=== PATIENT | female | born 1955 | race Caucasian/White ===

== ENCOUNTER → 2016-10-12 | Outpatient (CLI) | payer BC ==
[~2016-10-12] MED LIST: LIDOCAINE 2% MDV 20 ML VIAL As Ordered ONE; SODIUM BICARBONATE 8.4% INJ 50MEQ 50 ML VIAL As Ordered ONE
--- NOTE | 2016-10-12 16:11 | REPKIM ---
CLINICAL HISTORY: Patient with ESRD presents with a tunneled right IJ hemodialysis catheter. Patient is on peritoneal dialysis. The referring nephrology service has requested to remove the TDC because it is no longer needed. PROCEDURE PERFORMED: Right IJ Tunneled Dialysis Catheter Removal INTERVENTIONALIST: Dr. Eddie Sotelo CONSENT: The risks, benefits and alternatives to the procedure were explained to the patient and informed written consent was obtained. MEDICATION: Local Lidocaine 2% EBL: less than 10 mL PROCEDURE/FINDINGS: The patient was brought to the interventional radiology suite and placed in the supine position with head of bed elevated. Time out procedure was performed. The area was prepped and draped in a usual sterile fashion. Local anesthesia was administered subcutaneously to the catheter exit site using 2% Lidocaine. The catheter cuff was bluntly dissected free from the surrounding soft tissues. The catheter was removed, inspected and confirmed to be removed in its entirety. Hemostasis was achieved by manual compression. A sterile dressing was applied. The patient tolerated the procedure well with no immediate complications. No imaging was used. Dr. Sotelo was present. IMPRESSION: Tunneled dialysis catheter removal as discussed above. cc: Byron Mojica MD MTDD
== END | disposition home or self-care (01) ==
LOC: M IRPRO 12:01
PROVIDERS: ATTEND Internal Medicine Nephrology
DX: Z45.2 Encounter for adjustment and management of vascular access device (principal); N18.6 End stage renal disease

== ENCOUNTER → 2016-10-17 | Outpatient (CLI) | payer BC ==
--- NOTE | 2016-10-17 14:11 | REP ---
LUMBOSACRAL SPINE SERIES: Five views of the lumbosacral spine are performed. There is no compression fracture or malalignment. There is no spondylolysis or spondylolisthesis. There is mild diffuse spurring. There is an erosion at the inferior endplate of L5. There is diffuse subchondral sclerosis at L5. There is mild disc space narrowing at L5-S1. There is also mild disc space narrowing, subchondral sclerosis and vacuum at L4-5. There is sclerosis of the facets of L5-S1. The posterior elements are intact. Diffuse vascular calcifications are present. A catheter is seen in the pelvis. IMPRESSION: Degenerative changes. No compression fracture. There is erosive change at the inferior endplate of L5 anteriorly. Cannot exclude underlying discitis. Recommend MRI with and without contrast. Signed by Jorge Saez MD 10/17/2016 04:18 P
== END ==
LOC: M SMT 12:49
PROVIDERS: ATTEND Nurse Practitioner Adult Health
DX: M51.36 Other intervertebral disc degeneration, lumbar region (principal); M51.37 Other intervertebral disc degeneration, lumbosacral region

== ENCOUNTER → 2016-10-27 | Outpatient (CLI) | payer BC ==
--- NOTE | 2016-10-27 12:45 | REP ---
MRI LUMBAR SPINE WITHOUT CONTRAST: 10/27/2016. CLINICAL HISTORY: Back pain, spondylosis. History of osteomyelitis 02/2016 - 03/2016 in [place], priors out of the state. COMPARISON: X-ray 10/17/2016. No prior MRI or CT available at the time of this emergent request. TECHNIQUE: Sagittal T1, T2 and STIR images with axial T1 and T2 sequences were provided although the request was for study without and with gadolinium. Our neuroradiology and body MR protocols do not allow administration of any gadolinium in a patient with a GFR less than 30. With the patient on peritoneal dialysis, IV radiographic contrast for CT might be considered in coordination with that procedure, if approved by her grinder mill operator. FINDINGS: Sagittal images show vertebral body heights intact. There are discogenic changes at the L3-4 and L4-5 which are mild. However, there are destructive endplate changes at L5 inferior endplate and questionably at S1. There is marrow edema adjacent to the S1 endplate and throughout the L5 vertebral body on the STIR images. The L5-S1 disc space is narrowed. The L3-4 and L4-5 disc space are slightly narrowed with loss of disc water signal. The L2-3 levels and above are intact. At T11-12, T12-L1, L1-2 and L2-3 disc levels show no bulge herniation and no spinal or foraminal stenosis. At L3-4, there is a broad-based disc bulge with central disc protrusion which combined with some ligamentum flavum and facet hypertrophy cause moderately severe central canal stenosis. The foramina were notable for loss of perineural fat with some mild compression of the left L3 root in the foramen but not the right. At L4-5, there is a mild broad-based disc bulge, ligamentum flavum and facet hypertrophy. This causes mild central canal stenosis. It abuts but does not displace the L5 nerve roots in the central canal. The foramina show loss of perineural fat bilaterally, mildly compressing the L4 roots on each side. At L5-S1, there is endplate destruction mid and anterior aspect of L5 and some marrow edema on each side of the plate and throughout the L5 vertebral body. Posterior margins of the vertebra were intact. There is a minimal disc bulge at this level without central canal stenosis and the bulge abuts the S1 roots in that canal but does not displace them. There is a mild paravertebral soft tissue prominence noted anterior at L5-S1 which may be residual paraspinal abscess. There is hypertrophic facet change and disc bulge in the foramina causing nerve root compression of the L5 roots on both sides. IMPRESSION: 1. Osteomyelitis, discitis appearance of the L5-S1 level with the acuity or chronicity/progression of findings unable to be determined without prior studies. Mild disc bulge at this level abuts the S1 nerve roots in the canal but does not cause central canal stenosis. Combined factors do cause bilateral foraminal encroachment slightly compressing the L5 roots. Anterior to the disc level is some soft tissue that may reflect a small of fluid collection or residual osteomyelitis/abscess. It does not extend posteriorly to the neural canal. CT may be helpful. Contrast might be used in coordination with her grinder mill operator and the peritoneal dialysis schedule. 2. Significant degenerative changes at the L4-5 and L3-4 level with larger disc bulges and central protrusions contributing to some central canal stenosis in conjunction with ligamentum and facet hypertrophy. This is greater at L3-4 than L4-5. Foraminal encroachment with mild compression of the L4 roots at the L4-5 level and the L3 root on the left at the L3-4 level. No other significant finding. Signed by Maksim Dunn MD 10/27/2016 04:14 P
== END ==
LOC: M RAD 09:52
PROVIDERS: ATTEND Orthopaedic Surgery
DX: M43.06 Spondylolysis, lumbar region (principal); M46.27 Osteomyelitis of vertebra, lumbosacral region; M46.47 Discitis, unspecified, lumbosacral region

== ENCOUNTER → 2016-11-07 | Outpatient (REF) | payer BC ==
[2016-11-07 15:37] LABS: MEAN CORPUSCULAR HEMOGLOBIN 30.5 pg (27.0-33.0); MEAN CORPUSCULAR HGB CONC 32.5 g/dl (32.0-36.5); MEAN CORPUSCULAR VOLUME 93.8 fl (80.0-96.0); RED CELL DISTRIBUTION WIDTH 14.8 % (11.5-14.5); WHITE BLOOD COUNT 4.3 K/mm3 (4.0-10.0)
[2016-11-07 16:05] LABS: ALBUMIN 2.8 GM/DL (3.2-5.2); ALBUMIN/GLOBULIN RATIO 0.78 (1.00-1.93); ALKALINE PHOSPHATASE 101 U/L (45-117); ALT/SGPT 25 U/L (12-78); ANION GAP 8 MEQ/L (8-16); AST/SGOT 23 U/L (15-37); BILIRUBIN,TOTAL 0.4 MG/DL (0.2-1.0); BLOOD UREA NITROGEN 52 MG/DL (7-18); CALCIUM LEVEL 8.5 MG/DL (8.8-10.2); CARBON DIOXIDE LEVEL 30 MEQ/L (21-32); CHLORIDE LEVEL 103 MEQ/L (98-107); CREATININE FOR GFR 4.41 MG/DL (0.55-1.02); GLOMERULAR FILTRATION RATE 10.9 (>45); GLUCOSE, FASTING 211 MG/DL (80-110); POTASSIUM SERUM 3.2 MEQ/L (3.5-5.1); SODIUM LEVEL 141 MEQ/L (136-145); TOTAL PROTEIN 6.4 GM/DL (6.4-8.2)
== END ==
LOC: M SFHCPLAZ 14:40
PROVIDERS: ATTEND Nurse Practitioner Adult Health
DX: M86.9 Osteomyelitis, unspecified (principal)

== ENCOUNTER → 2016-11-23 | Outpatient (CLI) | payer BC ==
[~2016-11-23] MED LIST changes: +LIDOCAINE 1% MDV 20ML VIAL As Ordered ONE; -LIDOCAINE 2% MDV 20 ML VIAL As Ordered ONE; -SODIUM BICARBONATE 8.4% INJ 50MEQ 50 ML VIAL As Ordered ONE
--- NOTE | 2016-11-23 16:34 | REP ---
CT GUIDED L5-S1 DISC BIOPSY: The procedure was performed under the direct supervision of Dr. Saez. The patient has a history of osteomyelitis discitis appearance of the L5-S1 level seen on a previous MRI dated 10/27/2016. The risks and benefits of the procedure were explained to the patient and informed consent was obtained. The L5-S1 disc space was localized using CT guidance. The skin was prepped and draped in a sterile fashion. 1% Xylocaine was used as a local anesthetic. Using CT guidance, a 19/20-gauge coaxial needle biopsy system was inserted and advanced into the disc. Three core biopsy samples and a few drops of aspirate were obtained and sent to the lab. The patient tolerated the procedure well and there were no immediate complications. After the appropriate amount of monitored convalescence the patient was discharged from the department. Reviewed by RAHUL Azevedo 11/23/2016 05:06 PEdited and Signed by Jorge Saez MD 11/24/2016 12:56 P
== END ==
LOC: M RADPRO 09:25
PROVIDERS: ATTEND Nurse Practitioner Adult Health
DX: M86.9 Osteomyelitis, unspecified (principal); E11.9 Type 2 diabetes mellitus without complications; Z79.82 Long term (current) use of aspirin; I10 Essential (primary) hypertension; E78.5 Hyperlipidemia, unspecified; I50.9 Heart failure, unspecified; Z78.0 Asymptomatic menopausal state; Z79.84 Long term (current) use of oral hypoglycemic drugs; Z79.899 Other long term (current) drug therapy

== ENCOUNTER 2016-12-10 15:03 | Inpatient (IN) | payer BC ==
[~2016-12-10] VITALS: Ht 165.1 cm; Wt 76.5 kg
[2016-12-10] MEDS ORDERED: RENV2TAB PO (15:20)
[2016-12-10] MEDS ORDERED: CALC1CAP31 PO (15:20)
[2016-12-10] MEDS ORDERED: FAMO1TAB11 PO (15:20)
[2016-12-10] MEDS ORDERED: CARV12.5 PO (15:20)
[2016-12-10] MEDS ORDERED: LISI2.5T3 PO (15:20)
[2016-12-10] MEDS ORDERED: HEPA100I14 PD (15:20)
[2016-12-10] MEDS ORDERED: ATOR1TAB21 PO (15:20)
[2016-12-10] MEDS ORDERED: GLIP5TAB8 PO (15:20)
[2016-12-10] MEDS ORDERED: VITA50003 PO (15:20)
[2016-12-10] MEDS ORDERED: RENATAB6 PO (15:20)
[2016-12-10] MEDS ORDERED: BAYER PO (15:20)
[2016-12-10 15:29] LABS: BASO % 0.4 % (0.0-1.0); EOS # 0.2 K/mm3 (0.0-0.50); LARGE UNSTAINED CELL # 0.1 K/mm3 (0.0-0.4); LARGE UNSTAINED CELL % 1.2 % (0.0-4.0); LYMPH # 1.4 K/mm3 (1.5-4.5); LYMPH % 26.9 % (24.0-44.0); MEAN CORPUSCULAR HEMOGLOBIN 32.5 pg (27.0-33.0); MEAN CORPUSCULAR HGB CONC 33.8 g/dl (32.0-36.5); MEAN CORPUSCULAR VOLUME 96.2 fl (80.0-96.0); MONO # 0.3 K/mm3 (0.0-0.8); MONO % 5.7 % (0.0-5.0); NEUTROPHILS # 3.2 K/mm3 (1.8-7.7); NEUTROPHILS % 62.7 % (36.0-66.0); PLATELET COUNT, AUTOMATED 146 k/mm3 (150-450); WHITE BLOOD COUNT 5.1 K/mm3 (4.0-10.0)
[2016-12-10 15:51] LABS: CALCIUM LEVEL 7.6 MG/DL (8.8-10.2); CREATININE FOR GFR 4.88 MG/DL (0.55-1.02); GLOMERULAR FILTRATION RATE 9.7 (>45); POTASSIUM SERUM 3.7 MEQ/L (3.5-5.1)
[2016-12-10 15:57] LABS: ALBUMIN 2.7 GM/DL (3.2-5.2); ALBUMIN/GLOBULIN RATIO 0.64 (1.00-1.93); BILIRUBIN,DIRECT 0.1 MG/DL (0.0-0.2); BILIRUBIN,TOTAL 0.4 MG/DL (0.2-1.0); FREE T4 0.87 NG/DL (0.76-1.46); MAGNESIUM LEVEL 1.7 MG/DL (1.8-2.4); TOTAL PROTEIN 6.9 GM/DL (6.4-8.2)
[2016-12-10] MEDS ORDERED: ASPIRIN 325 MG TAB PO ONE (16:15)
[2016-12-10] MEDS ORDERED: GLUCAGON FOR INJ 1 MG VIAL (J1610) SC PRN (16:45)
[2016-12-10] MEDS ORDERED: GLUCOSE 4 GM CHEW TABLET PO PRN (16:45)
[2016-12-10] MEDS ORDERED: DEXTROSE 50% 50 ML SYRINGE IV PRN (16:45)
[2016-12-10] MEDS: (RENVELA) SEVELAMER **CARBONate** 800 MG TAB PO SCH (18:00)
[2016-12-10] MEDS ORDERED: ASPI325T PO (18:31)
[2016-12-10] MEDS ORDERED: CARV6.25 PO (18:31)
[2016-12-10] MEDS ORDERED: GLIP10TA58 PO (18:31)
[2016-12-10] MEDS ORDERED: COLA100C3 PO (18:32)
[2016-12-10] MEDS: HumaLOG INSULIN (NovoLOG) PER UNIT SC SCH ×2 (18:58→21:00)
[2016-12-10] MEDS ORDERED: SODIUM CHLORIDE 0.9% 1000 ML IV ONE ×2 (19:45)
[2016-12-10 20:37] VITALS: BP 129/59
--- NOTE | 2016-12-10 20:53 | HPE ---
DATE OF ADMISSION: 12/10/2016 PRIMARY CARE PROVIDER: Shima Chopra SMOKING PIPE COATER: Dr. Mojica MASTER [place]: Dr. Ervin in [place]. CODE STATUS: FULL CODE. CHIEF COMPLAINT: Right facial numbness. HISTORY OF PRESENT ILLNESS: Ms. Sesay is a 61-year-old female with past medical history of ischemic cardiomyopathy, end-stage renal disease on peritoneal dialysis, coronary artery disease (CAD), diabetes, who presented to the emergency department (ED) today with complaint of right facial numbness, right hand numbness and left leg numbness. Her symptoms initially started yesterday morning around 10 a.m. The patient was over visiting her sister and all of a sudden, started experiencing numbness/tingling to her upper lip and along the crease of her right nose. That episode lasted for approximately one hour and it resolved on its own. However, approximately around 12:30 today, her symptoms returned. She was sitting and all of a sudden again experienced right upper lip numbness, which eventually extended to right facial numbness. Associated with feeling "out of it," and lightheadedness as she attempted to go to the bathroom. On her way back, as she was trying to lift up her LifeVest, she noticed that it was very light to touch and numb on her right hand. As the day progressed, she also noticed that her left leg was getting weak and numb. Her symptoms still persisted after she presented to the emergency room (ER). Denied any syncopal episode, chest pain, palpitations, fevers, chills, dizziness, blurry vision, double vision, headaches. Denies similar symptoms in the past. Of note, the patient recently had an echocardiogram two weeks ago with her load out worker and at that time was found to have a pericardial effusion and since then, she was advised to get further peritoneal dialysis with Dr. Saravia's office for further fluid removal. The patient reports that her dry weight is 74 kg. PAST MEDICAL HISTORY: 1. Ischemic cardiomyopathy with ejection fraction (EF) of 23% from nuclear test in 11/29/2016. Global hypokinesis seen. Mild anterior wall perfusion defect with minimal redistribution at 24 hours. The patient has a LifeVest in place. 2. Coronary artery disease (CAD) status post coronary artery bypass graft (CABG ) 2009. 3. Osteomyelitis of L5-S1 diagnosed in 01/2016. Patient recently had MRI of her lumbar spine in 10/2016. At that time it showed osteomyelitis, discitis, appearance at L5-S1 with acuity and chronicity unable to be determined. She is currently followed by orthopedics. She also had a biopsy of her lumbar spine that was negative for acid-fast bacillus and no WBC or organisms seen, performed recently in the beginning of this month. Was treated with prolonged Vancomycin course. 4. Prior cardiac arrest during peritoneal dialysis (PD) catheter placement. 5. Congestive heart failure with ejection fraction (EF) of 23%. 6. End-stage renal disease, previously on hemodialysis which later was switched to peritoneal dialysis recently in 09/2016 because it was more convenient for her. 7. Clostridium (C) difficile colitis. 8. Peripheral vascular disease. 9. Type 2 diabetes. 10. Hyperlipidemia. 11. Pneumonia. PAST HOSPITALIZATIONS: From 12/2015 to 03/2016 for multiple complications from osteomyelitis, cardiac arrest, pneumonia, and Clostridium (C) difficile colitis back in [place]. PAST SURGICAL HISTORY: 1. Coronary artery bypass graft (CABG) seven years ago. 2. Peripheral dialysis (PD) catheter placement. 3. PermaCath placement with removal. 4. Tubal ligation. 5. Cataract surgery. 6. Currently, the patient is scheduled for a catheterization with Dr. Ervin on 12/12/2016. ALLERGIES: BUMEX AND CODEINE. Reaction is hives and shortness of breath. HOME MEDICATIONS: - aspirin 325 mg by mouth at bedtime - Lipitor 20 mg by mouth daily - calcitriol 0.25 mg three times a week - Coreg 6.25 mg by mouth twice a day - Colace 100 mg by mouth at bedtime as needed - vitamin D 50,000 units weekly - famotidine 20 mg by mouth twice a day - glipizide 10 mg by mouth twice a day - heparin with dialysis - lisinopril 2.6 mg at bedtime - Ruth-Lei one tablet by mouth daily - Renvela 800 mg three times a day SOCIAL HISTORY: Patient is a never smoker. No alcohol. No drug use. She previously lived in [place]. Currently resides in [place]. Lifetime travel includes [place]. 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 Currently lives at home with her daughter and one dog. Positive tuberculosis (TB) exposure. Last chest x-ray was last year and was negative. FAMILY HISTORY: Mother with diabetes, breast cancer and bone cancer, alive. Father with prostate and colon cancer. REVIEW OF SYSTEMS: CONSTITUTIONAL: Denies fevers, chills, rigors, weight changes. HENT: Denies headaches, dizziness, difficulty with speech and swallow. Positive for lightheadedness. EYES: No blurry vision, double vision, diplopia. CARDIOVASCULAR: Denies chest pain, paroxysmal nocturnal dyspnea, pillow orthopnea, lower extremity edema. PULMONARY: Denies shortness of breath, productive cough, hemoptysis. GASTROINTESTINAL: Denies hematochezia, melena, or hematemesis, nausea, vomiting , diarrhea, constipation. GENITOURINARY: No dysuria, frequency or hematuria. MUSCULOSKELETAL: No bone, muscle, joint pain. NEUROLOGICAL: As above. ENDOCRINE: Positive for diabetes. No thyroid disease. LYMPHATICS: No lumps, bumps, or swelling anywhere in neck, axilla, or groin. HEMATOLOGY/ONCOLOGY: No abnormal bleeding or bruising. No malignancy. SKIN: No new rashes or lesions. PSYCHIATRIC: No depression or anxiety. PHYSICAL EXAMINATION: VITAL SIGNS: Blood pressure 156/74, heart rate 79, temperature 97.9, respiration rate 16, pulse oximetry 98% on room air. GENERAL: Patient is lying in bed, comfortable, in no acute distress. Alert, awake, oriented times three. Pleasant, cooperative. Appears older than stated age. Chronically ill-appearing. No acute respiratory or psychiatric distress. Sister at bedside. HEENT: Normocephalic, atraumatic. Moist oral mucosa. Dentures in place. Nasal septum midline. EYES: Extraocular movement intact. Pupils equal and reactive to light. Visual field diminished on her right side. NECK: Supple, trachea midline. No jugular venous distention (JVD). CHEST: Symmetric chest rise. No accessory muscle use. Breath sounds were clear to auscultation bilaterally. Patient is currently not wearing LifeVest as this was recently removed for her MRI. Incisional scar present. HEART: Regular rate and rhythm. Did not appreciate murmurs, rubs or gallops. ABDOMEN: Soft, nontender, nondistended. Bowel sounds present. No guarding. No rebound. Right lower quadrant with a peritoneal dialysis (PD) catheter in place. Surrounding area is clean and dry without any drainage. EXTREMITY: No pedal edema. Pedal pulses are present bilaterally. SKIN: No cyanosis or edema appreciated. NEUROLOGIC: Strength is 4/5 in bilateral lower extremities. Sensory is diminished on her left leg compared to her right leg and it is diminished on her right arm compared to her left arm, and also diminished on her face bilaterally. Negative Babinski sign. Intact [id number] and [id number]. Cranial nerves II-Xii grossly intact. No slurring of speech or facial asymmetry. LABORATORY DATA: WBC 5.1, hemoglobin 10.6, hematocrit 31.4, platelets 146. Sodium 143, potassium 3.7, chloride 105, carbon dioxide 30, BUN 54, creatinine 4.88, glucose 178, calcium 7.6, phosphorus 5, magnesium 1.7. Liver profile normal. Troponin first set was 0.05. TSH and Free T4 normal. Albumin 2.7. Corrected calcium 8.4. PT 13.3, INR 1. EKG showed normal sinus rhythm, left atrial enlargement with nonspecific ST-T wave abnormalities. No prior for comparison. CT head without contrast was without acute changes. IMPRESSION AND PLAN: Ms. Sesay is a 61-year-old female with an extensive past medical history including ischemic cardiomyopathy, coronary artery disease (CAD) status post coronary artery bypass graft (CABG), end-stage renal disease on peritoneal dialysis, who presented with paresthesias. 1. Paresthesia. Etiology unclear. Based on her extensive history, possible cause could be cerebrovascular accident (CVA). She currently has MRI pending at this time. We will follow up with results. We have also consulted Dr. Mike for assistance. Patient is currently on her high-dose aspirin for her history of ischemic cardiomyopathy. We will continue with aspirin 325, statin therapy. Check lipid profile. Check carotid MRI and also echocardiogram. 2. History of ischemic cardiomyopathy. Ejection fraction (EF) 23%. She does have a LifeVest in place. Follows closely with cardiology. Patient has an appointment with her load out worker for catheterization this coming Monday. 3. End-stage renal disease on peritoneal dialysis. Have discussed case with Dr. Romero, who has agreed to see the patient for assistance with her peritoneal dialysis (PD). 4. Hypomagnesemia. Magnesium will be repleted. 5. History of osteomyelitis. Check erythrocyte sedimentation rate, C-reactive protein (CRP). She recently had a biopsy of the spine and it was negative back in 10/2016. She also had a lumbar MRI that showed osteomyelitis though chronicity of this is unclear. She reportedly followed with orthopedic after her MRI report. Has completed vancomycin last year. 6. History of pericardial effusion. Currently is stable. Patient will have order for repeat echocardiogram as mentioned above. 7. Congestive heart failure with ejection fraction (EF) of 23%. She undergoes peritoneal dialysis. Consulted rn surgical as mentioned above. Will follow up with recommendations. 8. Type 2 diabetes. Hold home hypoglycemic agents. Start insulin sliding scale while inpatient. 9. Hypertension. Continue home medications with home parameters. 10. History of coronary artery disease (CAD) status post coronary artery bypass graft (CABG). Continue beta-opal, statin and aspirin. 11. Hyperlipidemia. Continue statin therapy. 12. Prior history of cardiac arrest. Patient has a LifeVest in place. This reportedly occurred after completion of placement of her peritoneal dialysis (PD ) catheter placement last year. 13. Deep venous thrombosis (DVT) prophylaxis. Sequential compression devices (SCDs), thromboembolitic deterrents (TEDs) and heparin. DISPOSITION: Due to the patient's condition, we expect her stay to be greater than two midnights. cc: Shima Ervin in [facility]
[2016-12-10] MEDS ORDERED: MAGNESIUM OXIDE 400 MG TAB (MAG-OX) PO SCH (21:00)
[2016-12-10] MEDS: HEPARIN SOD (PORCINE) 5000 UNITS/ML VIAL SC SCH (22:28)
[2016-12-10] MEDS: CARVedilol 6.25 MG TAB PO SCH (22:33)
[2016-12-10 23:55] VITALS: BP 156/75
[2016-12-11 01:37] LABS: RBC PERITONEAL DIALYSATE < 10 (<10mm3 cells/uL)
[2016-12-11 01:38] LABS: PERITONEAL DIALYSATE FL COLOR COLORLESS (COLORLESS); TNC PERITONEAL DIALYSATE < 20 cells/uL (0-20)
[2016-12-11 01:39] LABS: BF DIFF IF INDICATED? NO (NO)
[2016-12-11 04:45] VITALS: BP 125/65
[2016-12-11 05:39] LABS: MEAN CORPUSCULAR HEMOGLOBIN 31.6 pg (27.0-33.0); MEAN CORPUSCULAR HGB CONC 32.9 g/dl (32.0-36.5); RED CELL DISTRIBUTION WIDTH 14.3 % (11.5-14.5); WHITE BLOOD COUNT 4.7 K/mm3 (4.0-10.0)
[2016-12-11 05:48] LABS: ALBUMIN 2.5 GM/DL (3.2-5.2); CALCIUM LEVEL 8.4 MG/DL (8.8-10.2); CREATININE FOR GFR 5.15 MG/DL (0.55-1.02); GLOMERULAR FILTRATION RATE 9.1 (>45); MAGNESIUM LEVEL 1.8 MG/DL (1.8-2.4); PHOSPHORUS LEVEL 4.6 MG/DL (2.5-4.9); POTASSIUM SERUM 3.7 MEQ/L (3.5-5.1)
[2016-12-11] MEDS: HEPARIN SOD (PORCINE) 5000 UNITS/ML VIAL SC SCH ×3 (06:16→21:08)
[2016-12-11] MEDS: HumaLOG INSULIN (NovoLOG) PER UNIT SC SCH ×4 (06:55→20:11)
[2016-12-11 08:00] VITALS: BP 115/58
[2016-12-11] MEDS: CARVedilol 6.25 MG TAB PO SCH ×2 (09:00→20:52)
--- NOTE | 2016-12-11 09:22 | REP ---
CT HEAD WITHOUT CONTRAST: HISTORY: Infarction. An area of decreased attenuation is present in the left basal ganglia and internal capsule. This represents an old lacunar infarction. Areas of decreased attenuation are present in the periventricular white matter. This represents small vessel ischemic disease. There is no intraparenchymal hemorrhage, mass, or midline shift. The ventricular system and cortical sulci are dilated consistent with minimal volume loss. There is no extracerebral collection. The visualized sinuses are clear. IMPRESSION: 1. Old left basal ganglia and internal capsule lacunar infarction. 2. Small vessel ischemic disease. 3. Minimal volume loss. Signed by Jorge Damico MD 12/11/2016 09:26 A
[2016-12-11] MEDS: (RENVELA) SEVELAMER **CARBONate** 800 MG TAB PO SCH ×3 (09:56→18:51)
[2016-12-11] MEDS: ATORVASTATIN 20 MG TAB PO SCH (09:56)
[2016-12-11] MEDS: LISINOPRIL *2.5 MG* TAB PO SCH (09:56)
[2016-12-11] MEDS: FAMOTIDINE 20 MG TAB PO SCH (09:56)
--- NOTE | 2016-12-11 11:38 | REP ---
MR BRAIN WITHOUT CONTRAST: HISTORY: Infarction. COMPARISON: CT, 12/10/2016 A small focus of increased signal intensity on diffusion weighted images is present in the left thalamus. This is decreased in signal intensity on ADC images and is consistent with an acute infarction. An area of increased signal intensity on T2-weighted images is present in the left basal ganglia and internal capsule. This represents an old lacunar infarction. Areas of increased signal intensity on T2-weighted images are present in the periventricular and subcortical white matter. This represents small vessel ischemic disease. There is no intraparenchymal hemorrhage, mass, or midline shift. The sella turcica is partially empty. The ventricular system and cortical sulci are dilated, consistent with minimal volume loss. There is no extracerebral collection. The sinuses are clear. IMPRESSION: 1. Small acute left thalamic infarction. 2. Old left basal ganglia and internal capsule lacunar infarction. 3. Small vessel ischemic disease. 4. Minimal volume loss. Signed by Jorge Damico MD 12/11/2016 11:40 A
--- NOTE | 2016-12-11 11:43 | REP ---
MRA CAROTIDS WITHOUT CONTRAST: HISTORY: Carotid stenosis. Unenhanced 2D [id number]-[id number] MR angiography was performed at the level ____ of the [place] of [place] . There is moderate stenosis of 35% of the distal right common carotid artery. There is moderate stenosis of 40% of the right internal carotid artery at its origin. There is moderate stenosis of 30% of the right external carotid artery at its origin. The distal left common carotid artery and origins of the left external and internal carotid arteries are normal. The vertebral arteries are equal in size and patent. IMPRESSION: 1. Moderate stenosis of 35% of the distal right common carotid artery. 2. Moderate stenosis of 40% of the right internal carotid artery at its origin. Signed by Jorge Damico MD 12/11/2016 11:44 A
[2016-12-11 12:00] VITALS: BP 153/74
--- NOTE | 2016-12-11 12:11 | REP ---
MRA BRAIN WITHOUT CONTRAST: HISTORY: Infarction. 3D asat-et-ifkaif MR angiography was performed at the level of the [place] of [place]. There is no ___ aneurysm ___ or arteriovenous malformation. Mild atherosclerotic disease involves the cavernous internal carotid arteries. Major intracranial vessels are patent. The vertebral arteries are equal in size. IMPRESSION: 1. There is no aneurysm or arteriovenous malformation. 2. Atherosclerotic disease, as described above. Signed by Jorge Damico MD 12/11/2016 12:26 P
--- NOTE | 2016-12-11 14:37 | ECHO ---
DATE OF SERVICE: 12/11/2016 REFERRING PROVIDER: Dr. Padron PATIENT LOCATION: Room 3224. REASON FOR THE CONSULT: Cerebrovascular accident (CVA). History of coronary artery bypass graft (CABG). 2D MEASUREMENTS: IVS: 1.3 cm LV: 5.5 cm LVPW: 1.2 cm LA: 4.6 cm Aorta: 3.3 cm IVC: 2.3 cm DOPPLER MEASUREMENTS: Peak velocity across the aortic valve: 1.3 m/s Peak velocity across the LVOT: 0.6 m/s Mitral E: 1.1 Mitral A: 0.9 with a ratio of 1.29 Peak gradient across the mitral valve: 7.7 mmHg Mean gradient across the mitral valve: 4 mmHg Maximum tricuspid valve velocity: 2.9 m/s 2D COMMENTS: 1. Mildly increased left ventricular wall thickness with mildly enlarged left ventricle and a moderately depressed global left ventricular systolic function. There appears to be moderate global hypokinesis, but the inferior wall seems to be almost akinetic. The estimated global left ventricular systolic ejection fraction is 30-35%. 2. Mildly enlarged left atrium. Normal right atrium and right ventricle. 3. The atrial septum appeared to be normal without evidence of defect or shunt. 4. Normal aortic root. 5. Trace pericardial effusion noted, no evidence of cardiac tamponade. 6. Mildly calcified aortic valve with normal leaflet excursion. Mildly calcified mitral annulus with normal anterior mitral valve leaflet motion. Normal tricuspid valve and pulmonic valve. The proximal pulmonary artery branches appear to be normal. 7. The inferior vena cava was mildly enlarged, central venous pressure might be elevated. DOPPLER: It detects mild mitral regurgitation and mild tricuspid regurgitation. The calculated pulmonary artery systolic pressure varied between 40 to 50 mmHg. Abnormal relaxation pattern was noted across the septal and lateral mitral valve annulus, left ventricular end diastolic pressure might be elevated. IMPRESSION: 1. Moderately severe global left ventricular systolic dysfunction with regional wall motion abnormalities and a mildly enlarged left ventricle. There are features of left ventricular diastolic dysfunction as mentioned above. 2. Aortic valve sclerosis without stenosis or aortic regurgitation. 3. Mildly enlarged left atrium with mitral annulus calcification and mild mitral regurgitation. Probably mild calcific mitral stenosis also was present. 4. Mild tricuspid regurgitation with probably moderate pulmonary hypertension. MTDD
--- NOTE | 2016-12-11 15:03 | CR ---
DATE OF CONSULTATION: 12/11/2016 REQUESTING PHYSICIAN: Dr. Maryam Yap CONSULTING PHYSICIAN: Dr. Romero REASON FOR CONSULTATION: Management of end stage renal disease and peritoneal dialysis. CHIEF COMPLAINT: Patient presented to the emergency room last night with right sided facial numbness. HISTORY OF PRESENT ILLNESS: Marina Sesay is a 61-year-old female with past medical history of end stage renal disease currently on peritoneal dialysis well known to nephrology service. She follows up with Dr. Mojica. She has multiple other comorbidities which are mentioned below. She presented to the hospital yesterday with right sided facial numbness which started yesterday morning. It was coming and going. She also complained of lightheadedness along with that. Initial evaluation including the MRI done yesterday has shown small acute infarct. Patient is being followed by neurology. She has history of end stage renal disease and nephrology service was called for further help in the management of peritoneal dialysis. The patient's dry weight is 74 kg. The patient was seen by me today at the bedside. She was getting her echocardiogram done. Otherwise, she is asymptomatic and she reports persistent right sided facial numbness. PAST MEDICAL HISTORY: 1. End stage renal disease on peritoneal dialysis. 2. History of congestive heart failure with ischemic cardiomyopathy. 3. Osteomyelitis of the lumbosacral spine. She was recently seen by orthopedics and she was referred to infectious disease for further management of osteomyelitis. 4. Prior history of cardiac arrest during peritoneal dialysis catheter placement. 5. History of Clostridium difficile colitis. 6. Peripheral vascular disease. 7. Diabetes mellitus type 2. 8. Hyperlipidemia. 9. History of anemia secondary to end stage renal disease. PAST SURGICAL HISTORY: 1. Status post peritoneal dialysis (PD) catheter placement. 2. Status post coronary artery bypass grafting seven years ago. 3. Status post tubal ligation. ALLERGIES: - BUMEX - CODEINE HOME MEDICATIONS: - aspirin - Lipitor - calcitriol - Coreg - Colace - vitamin D - Pepcid - glipizide - lisinopril - Ruth-Lei - Renvela FAMILY HISTORY: No significant family history of end stage renal disease requiring hemodialysis. SOCIAL HISTORY: The patient denies any smoking, drug abuse or alcohol abuse. The patient recently moved to [place] from [place]. REVIEW OF SYSTEMS: CONSTITUTIONAL: Patient denies any fever, chills, rigors or weight loss. EYES: Denies any recent blurry vision, double vision or decreased vision. ENT: Patient denies any ear discharge, ear pain, dysphagia, or odynophagia. CARDIOVASCULAR: She denies any palpitations or chest pain, but she does report history of congestive heart failure and she was waiting external defibrillator in the past. RESPIRATORY: She denies any shortness of breath or cough. GASTROINTESTINAL: She denies any nausea, vomiting, constipation. GENITOURINARY: She denies any dysuria or hematuria. MUSCULOSKELETAL: She denies any muscle aches and pains. NEUROLOGICAL: As mentioned per history of present illness (HPI), she presented with right facial numbness. ENDOCRINE: Patient reports history of diabetes and secondary hyperparathyroidism. HEMATOLOGIC/ONCOLOGIC: She reports anemia secondary to end stage renal disease. PSYCHIATRIC: She denies any history of anxiety or depression. SKIN: She denies any rashes or ulcers. All other review of systems is negative. PHYSICAL EXAMINATION: VITAL SIGNS: Temperature 97.7 degrees Fahrenheit. Blood pressure 153/74. Pulse 78. Respiratory rate 18. Saturating 98% on room air. INTAKE AND OUTPUT: Peritoneal dialysis recorded so far 4400 mL. Weight on the bed scale is 78 kg. GENERAL: Patient is awake, alert and oriented times three, laying in bed in no apparent distress. HEAD AND NECK EXAM: Extraocular muscles intact. Pupils equally round and reactive to light. Mucous membranes are moist. Neck is supple. There is no jugular venous distention (JVD). CARDIOVASCULAR: S1, S2, regular rate. No murmur, rub or gallop. RESPIRATORY: Chest is clear to auscultation bilaterally. Bilateral equal air entry. No rales or rhonchi. ABDOMEN: Soft. Positive bowel sounds. Nontender. No ascites. No organomegaly. The patient has a right lower quadrant PD catheter in place. No drainage from the catheter site. EXTREMITIES: No edema of the bilateral lower extremities. Pulses are 2+. No cyanosis. CENTRAL NERVOUS SYSTEM: Power is 4/5 in the bilateral lower extremities. She is otherwise awake, alert and oriented times three and follows commands. She has numbness of the right side of the face. LAB REVIEW: CBC showed a WBC of 4.7, hemoglobin 9.7 and platelets of 149. BMP showed sodium 142, potassium 3.7, chloride 106, bicarbonate 29, BUN 55, creatinine 5.1. Calcium 8.4. Albumin 2.5. MICROBIOLOGY: Blood culture is pending. IMAGING: MRI of the brain showed small acute left thalamic infarct, old left basal ganglia and internal capsule lacunar infarcts, small vessel ischemic disease and minimal volume loss. CURRENT INPATIENT MEDICATIONS: Patient's inpatient medications include: - aspirin 325 mg - atorvastatin 20 mg - calcitriol 0.25 mcg Monday, Monday, Monday - Coreg 6.25 mg twice a day - Pepcid 20 mg daily - heparin subcutaneous - insulin sliding scale - lisinopril 2.5 mg by mouth daily - Renvela 800 mg by mouth three times a day with meals ASSESSMENT: 61-year-old female with past medical history of end stage renal disease on hemodialysis, diabetes mellitus type 2, chronic osteomyelitis of the LS spine, coronary artery disease status post coronary artery bypass graft admitted at this time because of acute CVA. PLAN: 1. Acute CVA. The patient was already seen by neurology. Continue aspirin at this time. Echocardiogram result is pending. MRI of the carotid only showed 35-40% stenosis. The rest of the management is as per neurology recommendation. 2. End stage renal disease on peritoneal dialysis. I already ordered the peritoneal dialysis. Five manual exchanges in 24 hours. Each one 1500 mL. Dialysate concentration is 2.5%. Continue to monitor daily weight and intake and output. 3. History of osteomyelitis. Patient is pending infectious disease (ID) evaluation as outpatient. I recommend to get ID on board while the patient is here. 4. Chronic kidney disease, mineral bone disease. Continue Renvela 800 mg by mouth three times a day with meals. 5. Hypertension. Continue Coreg 6.25 mg by mouth twice a day. 6. Anemia and end stage renal disease. I will give the patient a dose of Aranesp. 7. Secondary hyperparathyroidism. Continue current dose of calcitriol 0.25 mcg by mouth Monday, Monday, Monday. Thank you for involving us in the care of this patient. We shall be happy to follow the patient along with you tomorrow morning. Peritoneal dialysis orders were discussed with patient's RN.
[2016-12-11 16:00] VITALS: BP 107/54
--- NOTE | 2016-12-11 17:45 | IPNPDOC ---
Date Seen The patient was seen on 12/11/16. Progress Note Hospitalist Progress Note Subjective: Patient states that she continues to have numbness in her right face and left leg, but her hands has improved. She also endorses back pain that has been an issue for several months. Objective: Physical Exam: Vitals: Vital Sign - Last 24 Hours 12/10/16 12/10/16 12/10/16 12/10/16 18:28 18:29 18:30 18:45 Temp 97.9 Pulse 79 Resp 16 B/P (MAP) 156/74 (101) 156/74 (101) 143/73 (96) 142/75 (97) Pulse Ox 98 O2 Delivery Room Air 12/10/16 12/10/16 12/10/16 12/10/16 18:48 19:00 19:15 19:18 Pulse 81 79 B/P (MAP) 150/71 (97) 143/72 (95) Pulse Ox 96 97 12/10/16 12/10/16 12/10/16 12/10/16 19:45 19:48 20:00 20:15 Pulse 78 B/P (MAP) 135/59 (84) 135/63 (87) 131/62 (85) Pulse Ox 98 12/10/16 12/10/16 12/10/16 12/10/16 20:30 20:37 22:33 23:55 Temp 97.5 98.3 99.2 Pulse 76 76 99 83 Resp 18 20 20 B/P (MAP) 121/59 (79) 129/59 (82) 141/69 156/75 (102) Pulse Ox 98 100 97 O2 Delivery Room Air Room Air 12/11/16 12/11/16 12/11/16 12/11/16 04:45 08:00 09:00 09:56 Temp 99.3 97.2 Pulse 73 70 70 Resp 20 18 B/P (MAP) 125/65 (85) 115/58 (77) 115/58 115/58 Pulse Ox 96 96 O2 Delivery Room Air Room Air 12/11/16 12/11/16 12:00 16:00 Temp 97.7 98.7 Pulse 78 80 Resp 18 18 B/P (MAP) 153/74 (100) 107/54 (71) Pulse Ox 98 95 O2 Delivery Room Air Room Air General: Awake, alert, no acute distress HEENT: Normocephalic, atraumatic, extraocular movements intact CV: Regular rate and rhythm; wearing a LifeVest Lungs: Clear to auscultation bilaterally Abd: Soft, nontender, nondistended Extremities: No edema Neuro: No strength deficits other than prior bilateral foot drop, no arm drift, no facial droop, alert and oriented 3 Psych: Normal mood and affect Labs and Imaging: Laboratory Tests 12/11/16 04:47 Red Blood Count 3.07 L, Mean Corpuscular Volume 96.0, Mean Corpuscular Hemoglobin 31.6, Mean Corpuscular Hemoglobin Concent 32.9, Red Cell Distribution Width 14.3, Anion Gap 7 L Assessment and Plan: 61-year-old female with ischemic cardiomyopathy, coronary artery disease status post CABG, osteomyelitis of the lumbar spine in 2016, end-stage renal disease on peritoneal dialysis, prior C. difficile infection, PVD, diabetes mellitus type 2, hyperlipidemia who presented with right facial numbness, right hand numbness, and left leg numbness. She has been found to have an acute infarct. 1. CVA: MRI of the brain shows small acute left thalamic infarct, as well as old left basal ganglia and internal capsule lacunar infarcts. Neurology has been consult and for the patient. MRA of the brain is unremarkable, and carotid ultrasound shows less than 50% stenosis bilaterally. Echocardiogram shows an ejection fraction of between 30-35%, as well as some diastolic dysfunction. The patient's LDL was 75, and she'll be continued on an aspirin and Plavix. She will be evaluated by speech therapy, PT, and OT 2. Ischemic cardiomyopathy: Patient currently has a LifeVest in place. She reports to me that she follows closely with cardiology, and there is plans for both the cardiac catheterization, as well as eventual ICD placement. Continue NGOZI inhibitor and beta opal. 3. End-stage renal disease on peritoneal dialysis: We appreciate the assistance of nephrology in managing this. Continue Rocaltrol and Renvela 4. History of osteomyelitis in the lumbar spine: Recent biopsy of the spine was negative, MRI of the lumbar spine showed osteomyelitis with unclear chronicity. The patient has had increased back pain in the last several months. She reports to me that she has an appointment scheduled with infectious disease in [place] , but it is not for another week or two. 5. CAD status post CABG: Continue home NGOZI inhibitor, beta opal, statin, aspirin. 6. Diabetes mellitus type 2: Sliding scale insulin while in-house. Holding home glipizide DVT prophylaxis: Heparin Dispo: possibly home tomorrow, pending OT assessment and formal neurology consult VS, I&O, 24H, Fishbone Vital Signs/I&O Vital Signs Date Time Temp Pulse Resp B/P (MAP) Pulse Ox O2 Delivery O2 Flow Rate FiO2 12/11/16 16:00 98.7 80 18 107/54 (71) 95 Room Air I&O- Last 24 Hours up to 6 AM 12/11/16 06:00 Intake Total 3100 ml Output Total 2400 ml Balance 700 ml Laboratory Data 24H LABS Laboratory Tests 2 12/10/16 18:19: Lactic Acid Level 2.2*H 12/10/16 18:42: Bedside Glucose (Misc Panel) 165H 12/10/16 20:14: Bedside Glucose (Misc Panel) 187H 12/10/16 20:32: Total Creatine Kinase 262H, Creatine Kinase MB 16.5H, Creatine Kinase MB Relative Index 6.29H, Troponin I 0.05 12/11/16 00:48: Body Fluid Source PERITONEAL DIALYSATE, Peritoneal Fluid Color COLORLESS, Peritoneal Fluid Appearance CLEAR, Peritoneal Fluid RBC (Auto) < 10, Dialysate Total Nucleated Cells < 20 12/11/16 01:03: Total Creatine Kinase 269H, Creatine Kinase MB 15.3H, Creatine Kinase MB Relative Index 5.68H, Troponin I 0.05 12/11/16 04:47: Blood Urea Nitrogen 55H, Creatinine 5.15H, Sodium Level 142, Potassium Level 3.7 , Chloride Level 106, Carbon Dioxide Level 29, Anion Gap 7L, Glomerular Filtration Rate 9.1L, Calcium Level 8.4L, Phosphorus Level 4.6, Magnesium Level 1.8, Albumin 2.5L, Triglycerides Level 94, Total Cholesterol 144, LDL Cholesterol 75.2, Non-HDL Cholesterol (LDL + VLDL) 94, Total HDL Cholesterol 50 , Cholesterol/HDL Ratio 2.880 12/11/16 08:35: Total Creatine Kinase 232H, Creatine Kinase MB 13.0H, Creatine Kinase MB Relative Index 5.60H, Troponin I 0.04 12/11/16 13:18: Bedside Glucose (Misc Panel) 219H 12/11/16 17:31: Bedside Glucose (Misc Panel) 120H CBC/BMP Laboratory Tests 12/11/16 04:47 Red Blood Count 3.07 L, Mean Corpuscular Volume 96.0, Mean Corpuscular Hemoglobin 31.6, Mean Corpuscular Hemoglobin Concent 32.9, Red Cell Distribution Width 14.3, Anion Gap 7 L Microbiology Microbiology 12/10/16 Blood Culture, Received Pending 12/10/16 Blood Culture, Received Pending MAGGY PELAEZ Dec 11, 2016 17:45
[2016-12-11 20:43] VITALS: BP 151/71
[2016-12-11] MEDS ORDERED: ASPIRIN 325 MG TAB PO SCH (21:00)
[2016-12-11 23:42] VITALS: BP 143/72
--- NOTE | 2016-12-11 23:47 | CR ---
DATE OF CONSULTATION: 12/11/2016 REFERRING PHYSICIAN: Dr. Laura Angeles REASON FOR CONSULTATION: Right-sided facial numbness. HISTORY OF PRESENT ILLNESS: Marina Sesay is a 61-year-old woman with history of ischemic cardiomyopathy, end-stage renal disease on peritoneal dialysis, coronary artery disease status post cardiac bypass of four blood vessels, diabetes, who was at her baseline state of health until day before yesterday when she developed right-sided facial numbness involving the right upper lip and around her right side of nose. She woke up in the morning of day of admission and her facial numbness had worsened and involved right side of her face sparing her forehead. She also felt numbness of her left leg. She denies any weakness of her arms and legs more than usual. She denies any dysphagia, dysarthria, diplopia or urinary incontinence. She denies any falls or loss of consciousness. She has history of chronic low back pain. She had osteomyelitis and acute discitis in December 2015. She was in and out of hospital until March 2016. She needed extensive course of antibiotics. She was followed by orthopedics. She developed foot drop at that time. Since then she has severe low-back pain which radiates down both her legs. She uses a walker at her baseline. She did not feel any difference in her gait since her symptoms onset a couple of days ago. She denies any headaches or neck pain. PAST MEDICAL HISTORY: Ischemic cardiomyopathy with ejection fraction 23% and the patient has a LifeVest in place, coronary artery disease status post four-vessel cardiac bypass in 2009, lumbosacral osteomyelitis and discitis, peritoneal dialysis, congestive heart failure, end-stage renal disease, peripheral arterial disease, type 2 diabetes, dyslipidemia, and pneumonia. ALLERGIES: BUMEX, CODEINE. HOME MEDICATIONS: - aspirin 325 mg by mouth daily - Lipitor 20 mg by mouth daily - Coreg 6.25 mg by mouth twice a day - Pepcid 20 mg by mouth twice a day - glipizide 10 mg by mouth twice a day - heparin with peritoneal dialysis - lisinopril 2.5 mg by mouth daily - Renvela 800 mg by mouth three times a day SOCIAL HISTORY: She has never smoked. She denies alcohol or illicit drugs. She used to live in [place] in the past. She currently lives in [place]. FAMILY HISTORY: Mother has diabetes and had breast and lung cancer. Father had prostate and colon cancer. REVIEW OF SYSTEMS: All systems were reviewed and were found to be noncontributory except as mentioned in history of present illness. PHYSICAL EXAMINATION: Temperature 97.2, pulse 70, respiratory rate 18, blood pressure 115/58. Heart: Regular rate and rhythm. Lungs: Clear to auscultation. No pedal edema. She has decreased peripheral pulses. No gross musculoskeletal abnormalities. Ears, nose, and throat examination is within normal limits. Abdomen is soft, nontender, nondistended. The patient is awake, alert, oriented to place, person and time. Normal speech comprehension and repetition. Extraocular muscles are intact. No facial weakness. Tongue and uvula are midline. 5/5 strength in upper extremities and 4+/5 strength in bilateral proximal lower extremities and she has bilateral foot drop. Deep tendon reflexes 1+ in arms and absent in legs. Her gait is unsteady. She has decreased cold pinprick vibration sensation in her feet. DIAGNOSTIC STUDIES: Her MRI scan of brain was reviewed and showed a small left thalamic acute ischemic lacunar stroke. Her MRI scan of lumbosacral spine from 2017 was reviewed and showed multilevel lumbosacral disc disease with mild spinal stenosis and chronic changes related to her L5-S1 osteomyelitis and discitis. ASSESSMENT: 1. Small acute left thalamic ischemic stroke. 2. Multifactorial gait difficulty. 3. Diabetic peripheral neuropathy. 4. History of lumbosacral osteomyelitis and discitis causing severe low back pain with lumbosacral radiculopathy. PLAN: 1. Reports of her MRA brain and neck are pending but did show right more than left internal carotid artery atherosclerosis. 2. Start Plavix 75 mg by mouth daily and reduce aspirin to 81 mg by mouth daily. 3. Physical and occupational therapy. 4. Continue Lipitor 20 mg by mouth daily. 5. Follow with our office in 1-2 weeks after hospital discharge. She will closely followup with her ergonomic specialist and route clerk due to chronic kidney disease and coronary artery disease.
[2016-12-12 04:48] VITALS: BP 129/69
[2016-12-12 05:09] LABS: MEAN CORPUSCULAR HEMOGLOBIN 32.9 pg (27.0-33.0); MEAN CORPUSCULAR HGB CONC 34.7 g/dl (32.0-36.5); MEAN CORPUSCULAR VOLUME 94.8 fl (80.0-96.0); WHITE BLOOD COUNT 4.6 K/mm3 (4.0-10.0)
[2016-12-12 05:24] LABS: ALBUMIN 2.4 GM/DL (3.2-5.2); CALCIUM LEVEL 8.2 MG/DL (8.8-10.2); CREATININE FOR GFR 5.18 MG/DL (0.55-1.02); MAGNESIUM LEVEL 1.8 MG/DL (1.8-2.4); PHOSPHORUS LEVEL 4.5 MG/DL (2.5-4.9); POTASSIUM SERUM 3.5 MEQ/L (3.5-5.1)
--- NOTE | 2016-12-12 05:50 | ECGEPIP ---
Stationary ECG Study [facility] - ED Test Date: 2016-12-10 Pat Name: KANE MAGANA Department: Room: - Gender: F Career Development Manager: : [id number] Requested By: JAMIN Sweet Order Number: [id number] Reading MD: Wade Fabian Measurements Intervals [place] Rate: 75 P: 68 VT: 177 QRS: 4 QRSD: 110 T: 159 QT: 413 QTc: 463 Interpretive Statements SINUS RHYTHM POSSIBLE LEFT ATRIAL ENLARGEMENT ST DEVIATION AND MODERATE T-WAVE ABNORMALITY, CONSIDER LATERAL ISCHEMIA NO PRIORS Electronically Signed On 12-12-2016 5:50:03 EDT by Wade Fabian
[2016-12-12] MEDS: HEPARIN SOD (PORCINE) 5000 UNITS/ML VIAL SC SCH (06:14)
[2016-12-12 07:15] VITALS: BP 141/71
[2016-12-12] MEDS: HumaLOG INSULIN (NovoLOG) PER UNIT SC SCH ×2 (07:30→11:30)
[2016-12-12] MEDS: FAMOTIDINE 20 MG TAB PO SCH (08:27)
[2016-12-12] MEDS: LISINOPRIL *2.5 MG* TAB PO SCH (08:27)
[2016-12-12] MEDS: ATORVASTATIN 20 MG TAB PO SCH (08:27)
[2016-12-12 08:29] VITALS: BP 129/69
[2016-12-12] MEDS: CARVedilol 6.25 MG TAB PO SCH (08:29)
[2016-12-12] MEDS ORDERED: ASPI81TAEC PO (08:56)
[2016-12-12] MEDS ORDERED: CLOP75TA2 PO (08:56)
[2016-12-12] MEDS ORDERED: ASPIRIN 81 MG ENTERIC TAB PO SCH (09:00)
[2016-12-12] MEDS ORDERED: CALCITRIOL 0.25 MCG CAP (S0169) PO SCH (09:00)
[2016-12-12] MEDS ORDERED: CLOPIDOGREL 75 MG TAB PO SCH (09:00)
[2016-12-12] MEDS ORDERED: DARBEPOETIN 100 MCG/0.5 ML *NON-DIALYSIS* SYRINGE (J0881) SC SCH (09:00)
[2016-12-12] MEDS ORDERED: LIDO5DIS36 TD (09:01)
[2016-12-12] MEDS: (RENVELA) SEVELAMER **CARBONate** 800 MG TAB PO SCH (09:13)
--- NOTE | 2016-12-12 13:44 | IPN ---
DATE OF SERVICE: 12/12/2016 SUBJECTIVE: The patient was seen and examined at the bedside today in the morning. She is asymptomatic. She is tolerating the peritoneal dialysis well. She is otherwise hemodynamically stable. She denies any more neurological symptoms. REVIEW OF SYSTEMS: The patient denies any fevers, chills, rigors, headache, nausea, vomiting, chest pain, shortness of breath, pain abdomen, constipation, or diarrhea. The rest of review of system is negative. OBJECTIVE: VITAL SIGNS: Temperature is 97.1 degrees Fahrenheit. Blood pressure is 129/69. Pulse is 72. Respiratory rate of 18. Saturating 98% on room air. INTAKE AND OUTPUT: Urine output is not recorded well. Peritoneal dialysis was 8 liters yesterday, 3200 mL so far today. Weight in the bed scale is 76.5 kg today. PHYSICAL EXAMINATION: GENERAL: The patient is awake, alert, oriented times three, sitting in the bed, no apparent distress. HEAD AND NECK EXAMINATION: Extraocular muscles intact. Pupils equally round and reactive to light. Mucous membranes are moist. Neck is supple. There is no jugular venous distention (JVD). CARDIOVASCULAR: S1, S2, regular rate. No murmur, rub, and gallop. RESPIRATORY: Chest is clear to auscultation bilaterally. Bilateral equal air entry. No rales or rhonchi. ABDOMEN: Soft. Positive bowel sounds. Nontender. No ascites. No organomegaly. The patient has a right lower quadrant peritoneal dialysis (PD) catheter. EXTREMITIES: No evidence of clubbing or cyanosis. Pulses are 2+. CENTRAL NERVOUS SYSTEM (PROVIDER RELATIONS REP): No focal neurologic deficit. Power is 4/5 in the bilateral upper and lower extremities. LABORATORY REVIEW: CBC showed a WBC of 4.6, hemoglobin 9.6, platelets are 124. BMP showed sodium 141, potassium 3.5, chloride 105, bicarbonate 28, BUN 56, creatinine 5.1, GFR is 9, calcium 8.2, albumin 2.4. CURRENT MEDICATIONS: The patient's medications were all reviewed by me. Aspirin has been changed to 81 mg daily. The patient has been started on Plavix 75 mg by mouth daily. She also got a dose of Aranesp 100 mcg subcutaneous today. There is no other change in the medications. ASSESSMENT: A 61-year-old female with past medical history of end-stage renal disease on hemodialysis, diabetes mellitus type 2, chronic osteomyelitis of the LS spine, admitted this time because of acute cerebrovascular accident (CVA). PLAN: 1. Acute cerebrovascular accident. Appreciate neurology recommendations. The patient has been started on Plavix in addition to aspirin. Physical therapy evaluation is pending. 2. End-stage renal disease on peritoneal dialysis. Continue the peritoneal dialysis, five exchanges in 24 hours at 2.5% concentration of Dialysate. Then the patient goes home, she will go back to the cycler on her home regimen. 3. Anemia in end-stage renal disease. The patient got a dose of Aranesp 100 mcg subcutaneous today. The rest of the management of anemia would be as outpatient. 4. Chronic osteomyelitis of spine. The patient is going to followup with infectious disease after discharge from the hospital. She already has the appointment with infectious disease (ID) at [place]. 5. Hypertension. Continue current dose of Lisinopril 2.5 mg by mouth daily and Coreg 6.25 mg by mouth twice a day. 6. Protein-calorie malnutrition. The patient's albumin is 2.4. She was encouraged to take more proteins, egg whites and meat.
--- NOTE | 2016-12-12 14:19 | DS.PDOC ---
Discharge Summary General Date of Admission Dec 10, 2016 at 17:10 Date of Discharge 12/12/2016 Discharge Summary DISCHARGE SUMMARY DATE OF ADMISSION: 12/10/2016 DATE OF DISCHARGE: 12/12/2016 PRIMARY CARE PHYSICIAN: The patient states that she previously saw Shima Chopra, but had already planned to change to Dr. Yvette Siddiqi, and her first appointment is already scheduled for later this month. DISCHARGE DIAGNOS(E)S: Acute CVA HPI & HOSPITAL COURSE: 61-year-old female with ischemic cardiomyopathy, coronary artery disease status post CABG, chronic osteomyelitis of the lumbar spine in 2016, end-stage renal disease on peritoneal dialysis, prior C. difficile infection, PVD, diabetes mellitus type 2, hyperlipidemia who presented with right facial numbness, right hand numbness, and left leg numbness. She has been found to have an acute infarct. 1. CVA: MRI of the brain shows small acute left thalamic infarct, as well as old left basal ganglia and internal capsule lacunar infarcts. Neurology has been consulted and recommends changing from full dose ASA to ASA 81mg and plavix. MRA of the brain is unremarkable, and carotid MRA shows less than 50% stenosis bilaterally (clean left carotid, 35% stenosis on R distal CCA and 40% at R ICA). Echocardiogram shows an ejection fraction of between 30-35%, as well as some diastolic dysfunction. The patient's LDL was 75, and she'll be continued on a statin. PT, OT, and MACHINE FORMER all cleared her to go home. 2. Ischemic cardiomyopathy: Patient currently has a LifeVest in place. She reports to me that she follows closely with cardiology, and there are plans for both the cardiac catheterization, as well as eventual ICD placement. Continue NGOZI inhibitor and beta opal. 3. End-stage renal disease on peritoneal dialysis: We appreciate the assistance of nephrology in managing this. Continue Rocaltrol and Renvela 4. History of osteomyelitis in the lumbar spine 2016, now with chronic osteo: Recent biopsy of the spine was negative, MRI of the lumbar spine showed osteomyelitis with unclear chronicity. The patient has had increased back pain in the last several months. She reports to me that she has an appointment scheduled with infectious disease in [place], but it is not for another week or two. She was encouraged to keep this appt. She reports pain in her back and limited lidocaine patches at home, so I will discharge her with an RX for several lidocaine patches. 5. CAD status post CABG: Continue home NGOZI inhibitor, beta opal, statin, aspirin. 6. Diabetes mellitus type 2: Sliding scale insulin while in-house. Holding home glipizide but resume at discharge DVT prophylaxis: Heparin PHYSICAL EXAMINATION ON DISCHARGE: VITAL SIGNS: Vital Signs Date Time Temp Pulse Resp B/P (MAP) Pulse Ox O2 Delivery O2 Flow Rate FiO2 12/12/16 08:29 129/69 12/12/16 07:15 97.1 72 18 98 Room Air General: Awake, alert, no acute distress HEENT: Normocephalic, atraumatic, extraocular movements intact CV: Regular rate and rhythm; wearing a LifeVest Lungs: Clear to auscultation bilaterally Abd: Soft, nontender, nondistended Extremities: No edema Neuro: No strength deficits other than prior bilateral foot drop, no arm drift, no facial droop, alert and oriented 3 Psych: Normal mood and affect DISPOSITION: Home DISCHARGE INSTRUCTIONS: Follow-up with new PCP Dr. Yvette Siddiqi at first available. Follow-up with Dr. Mike in 1-2 weeks. Keep all cardiology follow-up appointments. Keep appointment with infectious disease in [place]. If symptoms return, or if you experience worsening of your symptoms, please call your doctor or return to the emergency department. ITEMS THAT NEED OUTPATIENT FOLLOWUP: Continued follow-up with cardiology for cardiomyopathy, and continued follow-up with infectious disease for chronic osteomyelitis Patient was seen and examined by me on the day of discharge, and I spent a total time of greater than 30 minutes on this discharge. Vital Signs/I&Os Vital Signs Date Time Temp Pulse Resp B/P (MAP) Pulse Ox O2 Delivery O2 Flow Rate FiO2 12/12/16 08:29 129/69 12/12/16 07:15 97.1 72 18 98 Room Air I&O- Last 24 Hours up to 6 AM 12/12/16 06:00 Intake Total 7140 ml Output Total 7200 ml Balance -60 ml Laboratory Data Labs 24H Laboratory Tests 2 12/11/16 17:31: Bedside Glucose (Misc Panel) 120H 12/11/16 19:54: Bedside Glucose (Misc Panel) 131H 12/12/16 04:45: Blood Urea Nitrogen 56H, Creatinine 5.18H, Sodium Level 141, Potassium Level 3.5 , Chloride Level 105, Carbon Dioxide Level 28, Anion Gap 8, Glomerular Filtration Rate 9.0L, Calcium Level 8.2L, Phosphorus Level 4.5, Magnesium Level 1.8, Albumin 2.4L 12/12/16 11:28: Bedside Glucose (Misc Panel) 127H CBC/BMP Laboratory Tests 12/12/16 04:45 Red Blood Count 2.93 L, Mean Corpuscular Volume 94.8, Mean Corpuscular Hemoglobin 32.9, Mean Corpuscular Hemoglobin Concent 34.7, Red Cell Distribution Width 14.0, Anion Gap 8 FSBS Laboratory Tests Test 12/11/16 17:31 12/11/16 19:54 12/12/16 11:28 Range/Units Bedside Glucose (Misc Panel) 120 131 127 80-115 MG/DL Microbiology Microbiology 12/10/16 Blood Culture - Preliminary, Resulted No growth after 24 hours . All specim... 12/10/16 Blood Culture - Preliminary, Resulted No growth after 24 hours . All specim... Discharge Medications Scheduled (Ruth-Lei Rx 1 mg) 1 Tab Tab, 1 TAB PO DAILY, (Reported) Aspirin (Aspirin EC) 81 Mg Tabec, 81 MG PO DAILY Atorvastatin Calcium (Atorvastatin Calcium) 20 Mg Tab, 20 MG PO DAILY, (Reported ) Calcitriol (Calcitriol) 0.25 Mcg Cap, 0.25 MCG PO 3XW, (Reported) MON,MON,MON Carvedilol (Carvedilol) 6.25 Mg Tab, 6.25 MG PO BID, (Reported) Clopidogrel Bisulfate (Clopidogrel) 75 Mg Tab, 75 MG PO DAILY Ergocalciferol (Vitamin D) 50,000 Unit Cap, 50,000 UNITS PO 1XWK, (Reported) WEDNESDAYS Famotidine (Famotidine) 20 Mg Tab, 20 MG PO BID, (Reported) Glipizide (Glipizide Xl) 10 Mg Tab, 10 MG PO BID, (Reported) Heparin Sodium Flush (Porcine) (Heparin Lock Flush For Fl) Unknown Strength Inj , Unknown Dose PD 1XWK, (Reported) WEDNESDAYS Lisinopril (Lisinopril) 2.5 Mg Tab, 2.5 MG PO QHS, (Reported) Sevelamer Carbonate (Renvela) 800 Mg Tab, 800 MG PO TID, (Reported) Scheduled PRN Docusate Sodium (Colace) 100 Mg Cap, 100 MG PO QHS PRN for CONSTIPATION, ( Reported) Lidocaine (Lidoderm) 5 % Dis, 1 PATCH TD DAILY PRN for BACK PAIN Apply patch for up to 12 hrs to painful area on back, then remove. Allergies Coded Allergies: Bumetanide (Verified Allergy, Unknown, hives, 12/10/16) Codeine (Verified Allergy, Unknown, hives, 12/10/16) MAGGY PELAEZ December 12, 2016 14:19
== END 2016-12-12 12:38 | disposition home or self-care (01) | DRG 45 ==
LOC: EDBD 15:03 → M ED 15:42 → M ED INP 17:10 → M PCU 20:37
PROVIDERS: ADMIT Internal Medicine; ATTEND Hospitalist
DX: I63.9 Cerebral infarction, unspecified (principal); E11.40 Type 2 diabetes mellitus with diabetic neuropathy, unspecified; N18.6 End stage renal disease; E46 Unspecified protein-calorie malnutrition; M46.27 Osteomyelitis of vertebra, lumbosacral region; N25.81 Secondary hyperparathyroidism of renal origin; Z86.74 Personal history of sudden cardiac arrest; Z98.61 Coronary angioplasty status; I25.10 Atherosclerotic heart disease of native coronary artery without angina pectoris; D63.1 Anemia in chronic kidney disease; M54.17 Radiculopathy, lumbosacral region; I25.5 Ischemic cardiomyopathy; I73.9 Peripheral vascular disease, unspecified; M21.371 Foot drop, right foot; I69.398 Other sequelae of cerebral infarction; M21.372 Foot drop, left foot; Z79.84 Long term (current) use of oral hypoglycemic drugs; Z79.82 Long term (current) use of aspirin; Z88.5 Allergy status to narcotic agent; Z88.8 Allergy status to other drugs, medicaments and biological substances; Z98.51 Tubal ligation status; Z99.2 Dependence on renal dialysis

== ENCOUNTER → 2016-12-22 | Outpatient (CLI) | payer BC ==
[~2016-12-22] MED LIST changes: +ASPI325T PO; +ASPI81TAEC PO; +ATOR1TAB21 PO; +BAYER PO; +CALC1CAP31 PO; +CARV12.5 PO; +CARV6.25 PO; +CLOP75TA2 PO; +COLA100C3 PO; +FAMO1TAB11 PO; +GLIP10TA58 PO; +GLIP5TAB8 PO; +HEPA100I14 PD; +LIDO5DIS36 TD; -LIDOCAINE 1% MDV 20ML VIAL As Ordered ONE; +LISI2.5T3 PO; +RENATAB6 PO; +RENV2TAB PO; +VITA50003 PO
[2016-12-22 19:03] LABS: BASO % 0.7 % (0.0-1.0); EOS # 0.2 K/mm3 (0.0-0.50); EOS % 3.7 % (0.0-3.0); LARGE UNSTAINED CELL # 0.1 K/mm3 (0.0-0.4); LARGE UNSTAINED CELL % 1.8 % (0.0-4.0); LYMPH # 1.7 K/mm3 (1.5-4.5); LYMPH % 31.8 % (24.0-44.0); MEAN CORPUSCULAR HEMOGLOBIN 32.5 pg (27.0-33.0); MEAN CORPUSCULAR HGB CONC 32.7 g/dl (32.0-36.5); MEAN CORPUSCULAR VOLUME 99.6 fl (80.0-96.0); MONO # 0.3 K/mm3 (0.0-0.8); MONO % 5.9 % (0.0-5.0); NEUTROPHILS # 2.8 K/mm3 (1.8-7.7); NEUTROPHILS % 56.1 % (36.0-66.0); PLATELET COUNT, AUTOMATED 170 k/mm3 (150-450); RED CELL DISTRIBUTION WIDTH 15.3 % (11.5-14.5)
[2016-12-22 19:35] LABS: ALBUMIN 2.9 GM/DL (3.2-5.2); ALBUMIN/GLOBULIN RATIO 0.78 (1.00-1.93); ALKALINE PHOSPHATASE 116 U/L (45-117); ALT/SGPT 27 U/L (12-78); ANION GAP 9 MEQ/L (8-16); AST/SGOT 24 U/L (15-37); BILIRUBIN,TOTAL 0.5 MG/DL (0.2-1.0); BLOOD UREA NITROGEN 59 MG/DL (7-18); CALCIUM LEVEL 8.5 MG/DL (8.8-10.2); CARBON DIOXIDE LEVEL 30 MEQ/L (21-32); CHLORIDE LEVEL 101 MEQ/L (98-107); CREATININE FOR GFR 6.03 MG/DL (0.55-1.02); GLOMERULAR FILTRATION RATE 7.6 (>45); GLUCOSE, FASTING 125 MG/DL (80-110); SODIUM LEVEL 140 MEQ/L (136-145); TOTAL PROTEIN 6.6 GM/DL (6.4-8.2)
[2016-12-22 21:40] LABS: ERYTHROCYTE SEDIMENTATION RATE 60 mm/hr (0-30)
== END ==
LOC: M SMT 11:00
DX: M46.40 Discitis, unspecified, site unspecified (principal); L02.91 Cutaneous abscess, unspecified; M86.9 Osteomyelitis, unspecified

== ENCOUNTER → 2016-12-22 | Outpatient (CLI) | payer BC | LOC: M SMT 10:51 | PROVIDERS: ATTEND Physician Assistant | DX: Z00.01 Encounter for general adult medical examination with abnormal findings (principal) ==

== ENCOUNTER → 2016-12-28 | Outpatient (CLI) | payer BC ==
--- NOTE | 2016-12-29 09:04 | REP ---
MRI LUMBAR SPINE WITHOUT CONTRAST: 12/28/2016. CLINICAL HISTORY: Osteomyelitis/discitis, evaluate for abscess. The patient had an exam ordered without and with gadolinium. Since there is GFR less than 30 (7.6), this is an absolute contraindication for gadolinium and only noncontrast MRI performed. The possibility of a CT with IV contrast may be considered in this patient on peritoneal dialysis with the approval of the border inspector. There was a CT-guided needle aspiration/biopsy at L5-S1 on 11/23/2016. The results in electronic medical record show no growth. Some results pending. COMPARISON: 10/27/2016 MRI. TECHNIQUE: Sagittal T1, T2 and STIR images with axial T1-T2 sequences. FINDINGS: The sagittal images show normal lordosis maintained. Vertebral body heights of the lower thoracic levels through L3 are intact. There are discogenic endplate changes at L4-5 without loss of vertebral body height at L4 or L5. Loss of disc water signal at L3-4 and L4-5 with loss of height at L4-5 and L5-S1 discs. There is some hyperintense disc material anteriorly at L5-S1. There is loss of the inferior L5 endplate as on the previous study along with adjacent discogenic change and edema in both vertebral bodies. All of this is unchanged from the previous study. The conus terminates at upper aspect L2. The L2-3 level and upward visible show no disc bulge or herniation and no spinal or foraminal stenosis, unchanged. At L3-4, again noted is a broad-based disc bulge with central disc protrusion. There is ligamentum flavum and facet hypertrophy. This causes moderately severe central canal stenosis, unchanged. Foramina show loss of perineural fat with some compression of the left L3 nerve root while the right L3 nerve root is maintained. At L4-L5, there is broad-based disc bulge, ligamentum flavum and facet hypertrophy causing mild central canal stenosis, this also unchanged. Disc bulge extends into the foramina. There is loss of perineural fat bilaterally with mild compression of the L4 nerve roots on each side due to these combined factors. At L5-S1, there is again noted to be endplate destruction mid and anterior aspect of L5 with marrow edema on each side of the disc within the L5 and S1 vertebral bodies. Posterior margin shows the end plate intact. Mild paraspinal soft tissue anteriorly and toward the left at this disc level is unchanged. Hypertrophic facets are again noted. There is foraminal encroachment and nerve root compression bilaterally of the L5 roots. IMPRESSION: 1. Stable examination with the appearance of osteomyelitis/discitis complex at L5-S1 anteriorly with loss of the endplate margins at the L5 level inferiorly and anteriorly. There is a small amount of paraspinal soft tissue density which could be some residual fluid. Stable examination. 2. Disc bulge with central protrusion at L5-S1 and mild foraminal encroachment with nerve root compression bilaterally at this level, stable. 3. The L4-5 level shows disc bulge and hypertrophy of the ligamentum and facets causing mild central canal stenosis and bilateral foraminal encroachment with nerve root compression due to both disc and facet factors. 4. More significant central canal stenosis due to disc bulge and central protrusion at L3-4 but with only the left L3 nerve root showing compression due to combined factors. The right L3 root shows some loss of perineural fat but no nerve root compression. Levels above were entirely normal. Signed by Maksim Dunn MD 12/29/2016 10:11 A
== END ==
LOC: M RAD 16:04
PROVIDERS: ATTEND Internal Medicine
DX: M43.06 Spondylolysis, lumbar region (principal); M51.86 Other intervertebral disc disorders, lumbar region; M51.87 Other intervertebral disc disorders, lumbosacral region

== ENCOUNTER 2017-01-06 00:56 | Emergency (ER) | payer BC ==
[~2017-01-06] VITALS: Ht 165.1 cm; Wt 77.1 kg
[2017-01-06] MEDS ORDERED: NEUR100C PO (01:24)
[2017-01-06] MEDS ORDERED: TYLE500T78 PO (01:25)
[2017-01-06 09:01] LABS: BASO % 0.6 % (0.0-1.0); EOS # 0.2 K/mm3 (0.0-0.50); EOS % 3.9 % (0.0-3.0); LARGE UNSTAINED CELL # 0.1 K/mm3 (0.0-0.4); LYMPH # 1.2 K/mm3 (1.5-4.5); LYMPH % 23.2 % (24.0-44.0); MEAN CORPUSCULAR HEMOGLOBIN 33.1 pg (27.0-33.0); MEAN CORPUSCULAR HGB CONC 32.9 g/dl (32.0-36.5); MEAN CORPUSCULAR VOLUME 100.7 fl (80.0-96.0); MONO # 0.4 K/mm3 (0.0-0.8); MONO % 7.9 % (0.0-5.0); NEUTROPHILS # 3.1 K/mm3 (1.8-7.7); NEUTROPHILS % 62.4 % (36.0-66.0); PLATELET COUNT, AUTOMATED 160 k/mm3 (150-450); RED CELL DISTRIBUTION WIDTH 14.3 % (11.5-14.5); WHITE BLOOD COUNT 4.9 K/mm3 (4.0-10.0)
--- NOTE | 2017-01-06 09:05 | REP ---
Chest x-ray: Two views. History: Cough and shortness of breath. Recent intubation. No comparison chest x-ray. Findings: Median sternotomy wires are seen. A unipolar pacemaker is seen in the right heart via the left side. The heart is enlarged with cardiothoracic ratio measuring 17.5 cm over 29.2 cm. Pulmonary vasculature is not increased. No pleural effusion or pulmonary edema is seen. No focal infiltrate. Impression: Moderate cardiomegaly with pacemaker, prior sternotomy. No pleural effusion or pulmonary edema seen. Signed by Royer Griffin MD 01/06/2017 11:19 A
[2017-01-06 09:20] LABS: CALCIUM LEVEL 8.5 MG/DL (8.8-10.2); CREATININE FOR GFR 5.41 MG/DL (0.55-1.02); GLOMERULAR FILTRATION RATE 8.6 (>45); POTASSIUM SERUM 3.8 MEQ/L (3.5-5.1)
[2017-01-06 10:56] VITALS: BP 125/81
[2017-01-06] MEDS ORDERED: BENZ200C44 PO (11:35)
--- NOTE | 2017-01-06 15:15 | ECGEPIP ---
Stationary ECG Study [facility] - ED Test Date: 2017-01-06 Pat Name: KANE MAGANA Department: Room: - Gender: F Rod Puller: : 1955 Requested By: VENANCIO DIMAS PA-C. Order Number: [id number] Reading MD: Anaya Putnam Measurements Intervals [place] Rate: 77 P: 66 [place]: 181 QRS: -17 QRSD: 132 T: 138 QT: 426 QTc: 484 Interpretive Statements SINUS RHYTHM INTRAVENTRICULAR CONDUCTION DELAY Left ventricular hypertrophy, REPOLARIZATION VS ISCHEMIA SIMILAR 12/10/16 Electronically Signed On 01-06-2017 15:14:50 EDT by Anaya Putnam
== END 2017-01-06 12:07 | disposition home or self-care (01) ==
LOC: M ED 02:06
DX: J06.9 Acute upper respiratory infection, unspecified (principal); I42.0 Dilated cardiomyopathy; Z88.5 Allergy status to narcotic agent; Z88.8 Allergy status to other drugs, medicaments and biological substances; Z79.82 Long term (current) use of aspirin; Z79.899 Other long term (current) drug therapy; Z79.01 Long term (current) use of anticoagulants; I25.2 Old myocardial infarction; Z95.1 Presence of aortocoronary bypass graft; Z95.810 Presence of automatic (implantable) cardiac defibrillator; E78.00 Pure hypercholesterolemia, unspecified; E11.9 Type 2 diabetes mellitus without complications

== ENCOUNTER → 2017-02-28 | Outpatient (REF) | payer BC ==
[~2017-02-28] MED LIST changes: +BENZ200C53 PO; -COLA100C3 PO; +COLA100C5 PO; -GLIP10TA58 PO; +GLIP1TAB11 PO; -LIDO5DIS36 TD; +LIDO5DIS41 TD; +NEUR100C PO; +TYLE500T78 PO; +VITA1CAP40 PO; -VITA50003 PO
[2017-02-28 11:34] LABS: BASO % 0.4 % (0.0-1.0); EOS # 0.2 K/mm3 (0.0-0.50); EOS % 2.1 % (0.0-3.0); LARGE UNSTAINED CELL # 0.1 K/mm3 (0.0-0.4); LARGE UNSTAINED CELL % 0.9 % (0.0-4.0); LYMPH # 1.3 K/mm3 (1.5-4.5); LYMPH % 17.9 % (24.0-44.0); MEAN CORPUSCULAR HEMOGLOBIN 32.9 pg (27.0-33.0); MEAN CORPUSCULAR HGB CONC 33.4 g/dl (32.0-36.5); MEAN CORPUSCULAR VOLUME 98.4 fl (80.0-96.0); MONO # 0.3 K/mm3 (0.0-0.8); MONO % 4.1 % (0.0-5.0); NEUTROPHILS # 5.2 K/mm3 (1.8-7.7); NEUTROPHILS % 74.8 % (36.0-66.0); PLATELET COUNT, AUTOMATED 167 k/mm3 (150-450); RED CELL DISTRIBUTION WIDTH 13.1 % (11.5-14.5)
[2017-02-28 12:55] LABS: ERYTHROCYTE SEDIMENTATION RATE 84 mm/hr (0-30)
== END ==
LOC: M SFHCPLAZ 10:15
PROVIDERS: ATTEND Internal Medicine Infectious Disease
DX: M46.46 Discitis, unspecified, lumbar region (principal)

== ENCOUNTER → 2017-03-02 | Outpatient (CLI) | payer BC | LOC: M LAB 17:02 | PROVIDERS: ATTEND Internal Medicine Nephrology | DX: R78.81 Bacteremia (principal); M46.20 Osteomyelitis of vertebra, site unspecified ==

== ENCOUNTER → 2017-03-14 | Outpatient (CLI) | payer BC, SELFPAY ==
[2017-03-14 14:58] LABS: INR 0.95
== END ==
LOC: M LAB 14:20
PROVIDERS: ATTEND Internal Medicine Infectious Disease
DX: M46.46 Discitis, unspecified, lumbar region (principal)

== ENCOUNTER → 2017-03-16 | Outpatient (CLI) | payer BC, SELFPAY ==
[~2017-03-16] MED LIST changes: +LIDOCAINE 1% MDV 20ML VIAL As Ordered ONE
--- NOTE | 2017-03-16 17:38 | REP ---
CT GUIDED L5-S1 DISC BIOPSY: The procedure was performed under the direct supervision of Dr. Dunn. The patient has a history of a osteomyelitis/discitis complex at L5-S1 anteriorly with loss of the endplate margins at the L5 level inferiorly and anteriorly seen a previous MRI dated 12/28/2016. The risks and benefits of the procedure were explained to the patient and informed consent was obtained. The L5 disc was localized using CT guidance. The skin was prepped and draped in a sterile fashion. 1% Xylocaine was used as a local anesthetic. Using CT guidance a 19/20 gauge coaxial needle biopsy system was inserted and then advanced into the disc. 5 core biopsy samples were obtained. A few drops of sterile saline was injected and aspirated. All samples were sent to the lab for analysis. The patient tolerated the procedure well and there were no immediate complications. After the appropriate amount of monitored convalescence the patient was discharged from the department. Reviewed by RAHUL Azevedo 03/16/2017 05:47 PEdited and Signed by Maksim Dunn MD 03/16/2017 06:50 P
== END ==
LOC: M RADPRO 13:00
PROVIDERS: ATTEND Internal Medicine Infectious Disease
DX: M46.46 Discitis, unspecified, lumbar region (principal); Z88.5 Allergy status to narcotic agent; Z91.048 Other nonmedicinal substance allergy status; Z88.8 Allergy status to other drugs, medicaments and biological substances; Z79.82 Long term (current) use of aspirin; Z79.899 Other long term (current) drug therapy

== ENCOUNTER → 2017-04-13 | Outpatient (REF) | payer BC, SELFPAY ==
[~2017-04-13] MED LIST changes: -LIDOCAINE 1% MDV 20ML VIAL As Ordered ONE
== END ==
LOC: M SMT 13:46
PROVIDERS: ATTEND Internal Medicine Nephrology
DX: M46.26 Osteomyelitis of vertebra, lumbar region (principal)

== ENCOUNTER → 2017-04-13 | Outpatient (REF) | payer BC, SELFPAY ==
[2017-04-13 15:26] LABS: ALBUMIN 2.8 GM/DL (3.2-5.2); ALBUMIN/GLOBULIN RATIO 0.67 (1.00-1.93); BILIRUBIN,TOTAL 0.4 MG/DL (0.2-1.0); CALCIUM LEVEL 8.5 MG/DL (8.8-10.2); CREATININE FOR GFR 4.98 MG/DL (0.55-1.02); GLOMERULAR FILTRATION RATE 9.4 (>45); POTASSIUM SERUM 4.1 MEQ/L (3.5-5.1)
== END ==
LOC: M SMT 13:43
PROVIDERS: ATTEND Family Medicine
DX: E11.22 Type 2 diabetes mellitus with diabetic chronic kidney disease (principal)

== ENCOUNTER → 2017-05-03 | Outpatient (CLI) | payer BC ==
[2017-05-03 19:00] LABS: BASO % 0.6 % (0.0-1.0); EOS # 0.2 K/mm3 (0.0-0.50); EOS % 2.7 % (0.0-3.0); LARGE UNSTAINED CELL # 0.1 K/mm3 (0.0-0.4); LARGE UNSTAINED CELL % 1.5 % (0.0-4.0); LYMPH # 1.7 K/mm3 (1.5-4.5); LYMPH % 23.5 % (24.0-44.0); MEAN CORPUSCULAR HEMOGLOBIN 33.3 pg (27.0-33.0); MEAN CORPUSCULAR HGB CONC 34.1 g/dl (32.0-36.5); MEAN CORPUSCULAR VOLUME 97.8 fl (80.0-96.0); MONO # 0.3 K/mm3 (0.0-0.8); MONO % 4.1 % (0.0-5.0); NEUTROPHILS # 4.8 K/mm3 (1.8-7.7); NEUTROPHILS % 67.6 % (36.0-66.0); PLATELET COUNT, AUTOMATED 180 k/mm3 (150-450); RED CELL DISTRIBUTION WIDTH 13.6 % (11.5-14.5); WHITE BLOOD COUNT 7.1 K/mm3 (4.0-10.0)
[2017-05-03 20:16] LABS: ERYTHROCYTE SEDIMENTATION RATE 106 mm/hr (0-30)
== END ==
LOC: M SMT 15:01
PROVIDERS: ATTEND Internal Medicine Infectious Disease
DX: M46.46 Discitis, unspecified, lumbar region (principal)

== ENCOUNTER → 2017-05-18 | Outpatient (CLI) | payer BC ==
[2017-05-18 19:35] LABS: BASO % 0.5 % (0.0-1.0); IMMATURE GRANULOCYTE % 0.3 % (0-0); LYMPH # 1.8 10^3/uL (1.5-4.5); LYMPH % 22.2 % (24.0-44.0); MEAN CORPUSCULAR HEMOGLOBIN 32.9 pg (27.0-33.0); MEAN CORPUSCULAR HGB CONC 32.9 g/dl (32.0-36.5); MONO # 0.5 10^3/uL (0.0-0.8); MONO % 6.7 % (0.0-5.0); NEUTROPHILS # 5.5 10^3/uL (1.8-7.7); NEUTROPHILS % 70.3 % (36.0-66.0); PLATELET COUNT, AUTOMATED 164 10^3/uL (150-450); RED CELL DISTRIBUTION WIDTH 13.5 % (11.5-14.5); WHITE BLOOD COUNT 7.9 10^3/uL (4.0-10.0)
[2017-05-18 19:47] LABS: ADD MORPHOLOGY? NO
[2017-05-18 20:17] LABS: ERYTHROCYTE SEDIMENTATION RATE 72 mm/hr (0-30)
== END ==
LOC: M SMT 14:46
PROVIDERS: ATTEND Internal Medicine Infectious Disease
DX: M46.46 Discitis, unspecified, lumbar region (principal)

== ENCOUNTER → 2017-05-31 | Outpatient (CLI) | payer BC ==
[2017-05-31 13:32] LABS: BASO % 0.3 % (0.0-1.0); IMMATURE GRANULOCYTE % 0.2 % (0-0); LYMPH # 1.8 10^3/uL (1.5-4.5); MEAN CORPUSCULAR HEMOGLOBIN 32.5 pg (27.0-33.0); MEAN CORPUSCULAR HGB CONC 32.7 g/dl (32.0-36.5); MEAN CORPUSCULAR VOLUME 99.4 fl (80.0-96.0); MONO # 0.6 10^3/uL (0.0-0.8); MONO % 6.6 % (0.0-5.0); NEUTROPHILS # 6.4 10^3/uL (1.8-7.7); NEUTROPHILS % 72.9 % (36.0-66.0); PLATELET COUNT, AUTOMATED 183 10^3/uL (150-450); RED CELL DISTRIBUTION WIDTH 13.5 % (11.5-14.5); WHITE BLOOD COUNT 8.8 10^3/uL (4.0-10.0)
[2017-05-31 15:03] LABS: ERYTHROCYTE SEDIMENTATION RATE 81 mm/hr (0-30)
== END ==
LOC: M SMT 10:31
PROVIDERS: ATTEND Internal Medicine Infectious Disease
DX: M46.46 Discitis, unspecified, lumbar region (principal)

== ENCOUNTER → 2017-06-28 | Outpatient (CLI) | payer BC ==
[2017-06-28 19:13] LABS: BASO % 0.3 % (0.0-1.0); IMMATURE GRANULOCYTE % 0.2 % (0-0); MEAN CORPUSCULAR HEMOGLOBIN 32.1 pg (27.0-33.0); MEAN CORPUSCULAR VOLUME 100.3 fl (80.0-96.0); MONO # 0.5 10^3/uL (0.0-0.8); MONO % 5.6 % (0.0-5.0); NEUTROPHILS # 6.4 10^3/uL (1.8-7.7); NEUTROPHILS % 71.9 % (36.0-66.0); PLATELET COUNT, AUTOMATED 187 10^3/uL (150-450); RED CELL DISTRIBUTION WIDTH 13.2 % (11.5-14.5); WHITE BLOOD COUNT 8.9 10^3/uL (4.0-10.0)
[2017-06-28 20:01] LABS: ERYTHROCYTE SEDIMENTATION RATE 72 mm/hr (0-30)
== END ==
LOC: M SMT 13:02
PROVIDERS: ATTEND Internal Medicine Infectious Disease
DX: M46.46 Discitis, unspecified, lumbar region (principal)

== ENCOUNTER → 2017-10-02 | Outpatient (CLI) | payer BC, MEDICARE ==
[2017-10-02 18:56] LABS: BASO % 0.3 % (0.0-1.0); HEMATOCRIT 32.5 % (36.0-47.0); HEMOGLOBIN 10.6 g/dl (12.0-16.0); IMMATURE GRANULOCYTE % 0.3 % (0-3.0); LYMPH # 2.3 10^3/uL (1.5-4.5); LYMPH % 26.5 % (24.0-44.0); MEAN CORPUSCULAR HEMOGLOBIN 30.7 pg (27.0-33.0); MEAN CORPUSCULAR HGB CONC 32.6 g/dl (32.0-36.5); MEAN CORPUSCULAR VOLUME 94.2 fl (80.0-96.0); MONO # 0.6 10^3/uL (0.0-0.8); MONO % 6.8 % (0.0-5.0); NEUTROPHILS # 5.8 10^3/uL (1.8-7.7); NEUTROPHILS % 66.1 % (36.0-66.0); PLATELET COUNT, AUTOMATED 213 10^3/uL (150-450); RED BLOOD COUNT 3.45 10^6/uL (4.00-5.40); RED CELL DISTRIBUTION WIDTH 13.2 % (11.5-14.5); WHITE BLOOD COUNT 8.8 10^3/uL (4.0-10.0)
[2017-10-02 19:31] LABS: ALBUMIN 2.8 GM/DL (3.2-5.2); ALBUMIN/GLOBULIN RATIO 0.76 (1.00-1.93); ALKALINE PHOSPHATASE 114 U/L (45-117); ALT/SGPT 29 U/L (12-78); ANION GAP 8 MEQ/L (8-16); AST/SGOT 13 U/L (7-37); BILIRUBIN,TOTAL 0.3 MG/DL (0.2-1.0); BLOOD UREA NITROGEN 61 MG/DL (7-18); CALCIUM LEVEL 8.2 MG/DL (8.8-10.2); CARBON DIOXIDE LEVEL 31 MEQ/L (21-32); CHLORIDE LEVEL 103 MEQ/L (98-107); CHOLESTEROL LEVEL 157 MG/DL (<200); CHOLESTEROL RISK RATIO 2.907 (<5); FREE T4 1.07 NG/DL (0.76-1.46); GLOMERULAR FILTRATION RATE 7.4 (>45); GLUCOSE, FASTING 157 MG/DL (70-100); HDL CHOLESTEROL 54 MG/DL (>40); NON-HDL-C 103 MG/DL; SODIUM LEVEL 142 MEQ/L (136-145); TOTAL PROTEIN 6.5 GM/DL (6.4-8.2); TRIGLYCERIDES LEVEL 175 MG/DL (<150)
[2017-10-02 19:33] LABS: ESTIMATED AVERAGE GLUCOSE 194 MG/DL (60-110); HEMOGLOBIN A1c 8.4 %
== END ==
LOC: M SMT 12:13
DX: E11.22 Type 2 diabetes mellitus with diabetic chronic kidney disease (principal); E78.5 Hyperlipidemia, unspecified; N18.5 Chronic kidney disease, stage 5
CPT/HCPCS: 84443

== ENCOUNTER 2018-03-02 11:55 | Outpatient (RCR) | payer MEDICARE, BC | END 2018-03-13 | LOC: M CR 11:55 | DX: Z51.89 Encounter for other specified aftercare (principal); I25.5 Ischemic cardiomyopathy | CPT/HCPCS: 93798 ==

== ENCOUNTER 2018-03-16 13:00 | Outpatient (RCR) | payer MEDICARE, BC | END 2018-04-13 | LOC: M CR 13:00 | DX: I25.5 Ischemic cardiomyopathy (principal) | CPT/HCPCS: 93798 ==

== ENCOUNTER → 2018-07-19 | Outpatient (CLI) | payer MEDICARE, BC ==
[~2018-07-19] MED LIST changes: +ASPI1TAB15 PO; +BACT2CRE TOP; +BASA100I SC; -BENZ200C53 PO; +BENZ200C70 PO; +CETI10TA PO; +CINA30TA PO; +CORL1.7T PO; +HEPARIN 1,000 UNITS/ML 10ML VIAL (FOR RADIOLOGY& DIALYSIS ONLY) As Ordered ONE; +HYDR-3713 PO; +INSULANT SC; +ISOVUE-300 61% 50ML VIAL (Q9967) As Ordered ONE; +K-TA10TA PO; +LIDOCAINE 2% MDV 20 ML VIAL As Ordered ONE; -LISI2.5T3 PO; +LISI2.5T5 PO; +MIDAZOLAM INJ 2 MG/2 ML VIAL (J2250) As Ordered ONE; +NITR0.4S14 SL; +OXYC1TAB23 PO; +TOPR50TA23 PO; -VITA1CAP40 PO; +VITA50005 PO; +fentaNYL 100 MCG/2 ML INJECTION (J3010) As Ordered ONE
--- NOTE | 2018-08-02 08:00 | REPIR ---
DATE OF PROCEDURE: 07/19/2018 ATTENDING SURGEON: Dr. Dio Pratt CUSTOM APPLICATOR: Kimmy Orlando and Umm Chao PREOPERATIVE DIAGNOSIS: Nonhealing left foot ulcer. POSTOPERATIVE DIAGNOSIS: Nonhealing left foot ulcer. PROCEDURE: Aortogram, iliofemoral angiogram, selective left common femoral artery catheter placement with left lower extremity angiogram, selective left superficial femoral artery catheter placement with left lower extremity angiogram, selective left popliteal artery catheter placement with left lower extremity angiogram, selective left tibial peroneal trunk catheter placement with left lower extremity angiogram, selective peroneal artery catheter placement with left lower extremity angiogram, left peroneal artery atherectomy with a 1.85 Jetstream, left tibial peroneal trunk atherectomy with a 1.85 Jetstream, left popliteal artery atherectomy with a 1.85 Jetstream, left superficial femoral artery atherectomy with a 1.85 Jetstream, left superficial femoral and popliteal artery angioplasty with 6 x 200 balloon, left tibial peroneal trunk and peroneal artery angioplasty with 3 x 220 balloon, MYNX closure of the right common femoral arteriotomy. INDICATION: The patient is a 63-year-old female with nonhealing left foot ulcer and nonpalpable pulses who will undergo a left lower extremity angiogram with possible angioplasty stent and/or atherectomy. Risks, benefits and alternative treatment options were discussed with the patient. Anesthesia was local with sedation with 2 mg of Versed, 100 mcg of fentanyl and 10 mL of 2% lidocaine. FLUORO TIME: 5.9 minutes. CONTRAST: 22.5 mL of Isovue-300. SEDATION TIME: 8:47 a.m. to 10:31 a.m. for a total of 104 minutes. Sedation was administered by the registered nurse in the room under my direct supervision. Cardiopulmonary monitoring was performed by the nurse in the room under my direct supervision. I was present for and directed the entire case. HEPARIN: 6000 units. COMPLICATIONS: None. DRAINS: None. SPECIMENS: None. IMPLANTS: Right common femoral arteriotomy closure with a 7 Nigerien MYNX closure device. DESCRIPTION OF PROCEDURE: The patient was taken to the angiography suite, placed supine on the angiography room table, and then prepped and draped in a standard surgical fashion. The right common femoral artery was cannulated with a micropuncture needle. The catheter was placed in the aorta and aortogram was performed. This showed severe disease with runoff into the left lower extremity and the superficial femoral, popliteal, tibioperoneal trunk and peroneal arteries. The AeroSurgical 1.85 catheter was used to perform an atherectomy of the left superficial femoral, popliteal, tibial peroneal and peroneal arteries. The left superficial femoral and popliteal arteries were angioplastied with a 6 x 200 balloon. The left tibial peroneal trunk and peroneal artery was angioplastied with a 3 x 220 mm balloon. A completion angiogram showed resolution of the stenoses with excellent flow into the left foot. Catheters and wires were removed. A MYNX closure device was used close the arteriotomy in the right common femoral artery with an additional 10 minutes of adjunctive pressure applied for hemostasis. Dressings were then applied. The patient tolerated the procedure well. All instrument, sponge and needle counts were correct at the end the case. There were no complications. Dr. Pratt was present for and directed the entire case. The patient was transferred to the holding area and subsequently discharged in stable condition.
== END | disposition home or self-care (01) ==
LOC: M IRPRO 06:44
PROVIDERS: ATTEND Surgery Vascular Surgery
DX: I70.245 Atherosclerosis of native arteries of left leg with ulceration of other part of foot (principal); L97.529 Non-pressure chronic ulcer of other part of left foot with unspecified severity
CPT/HCPCS: 37225; 37229; 75716; 99152; 99153; C1724; C1725; C1760; C1769; C1887; C1894; J2250; J3010; Q9967

== ENCOUNTER 2018-08-20 02:55 | Emergency (ER) | payer MEDICARE, BC ==
[~2018-08-20] VITALS: Ht 165.1 cm; Wt 83.6 kg
[~2018-08-20 02:55] MED LIST changes: -ASPI1TAB15 PO; -BASA100I SC; -CETI10TA PO; -HEPARIN 1,000 UNITS/ML 10ML VIAL (FOR RADIOLOGY& DIALYSIS ONLY) As Ordered ONE; -ISOVUE-300 61% 50ML VIAL (Q9967) As Ordered ONE; -LIDOCAINE 2% MDV 20 ML VIAL As Ordered ONE; -MIDAZOLAM INJ 2 MG/2 ML VIAL (J2250) As Ordered ONE; -OXYC1TAB23 PO; -fentaNYL 100 MCG/2 ML INJECTION (J3010) As Ordered ONE
[2018-08-20] MEDS ORDERED: BASA100I SC (03:09)
[2018-08-20] MEDS ORDERED: HumuLIN R (REGULAR) INSULIN (NovoLIN R) **100U/ML** PER UNIT IV ONE ×2 (03:30→05:00)
[2018-08-20] MEDS ORDERED: NS 500 ML IV ONE (03:30)
[2018-08-20 04:20] LABS: CALCIUM LEVEL 7.9 MG/DL (8.8-10.2); CREATININE FOR GFR 7.81 MG/DL (0.55-1.30); GLOMERULAR FILTRATION RATE 5.6 (>45); POTASSIUM SERUM 3.7 MEQ/L (3.5-5.1)
[2018-08-20] MEDS ORDERED: AUGMENTIN 875 MG TAB PO ONE (05:45)
[2018-08-20] MEDS ORDERED: ONDANSETRON 4 MG ORAL DISINTEGRATING TAB (Q0162 PER 1MG) PO ONE (06:00)
[2018-08-20 06:19] VITALS: BP 121/60
[2018-08-20] MEDS ORDERED: ONDANSETRON 4 MG ORAL DISINTEGRATING TAB (Q0162 PER 1MG) PO STA (07:22)
[2018-08-20] MEDS ORDERED: ASPI1TAB15 PO (11:15)
[2018-08-20] MEDS ORDERED: CETI10TA PO (11:15)
[2018-08-20] MEDS ORDERED: OXYC1TAB23 PO (11:15)
== END 2018-08-20 07:25 | disposition home or self-care (01) ==
LOC: M ED 02:55
DX: E11.65 Type 2 diabetes mellitus with hyperglycemia (principal); I10 Essential (primary) hypertension; Z99.2 Dependence on renal dialysis; I25.10 Atherosclerotic heart disease of native coronary artery without angina pectoris; F17.210 Nicotine dependence, cigarettes, uncomplicated; Z95.1 Presence of aortocoronary bypass graft

== ENCOUNTER 2018-08-20 07:45 | Inpatient (IN) | payer MEDICARE, BC ==
[~2018-08-20] VITALS: Ht 165.1 cm; Wt 88.0 kg
[~2018-08-20 07:45] MED LIST changes: +BASA100I SC
--- NOTE | 2018-08-20 08:52 | REP ---
Portable chest x-ray: Semi-erect AP view. History: Chest pain. Comparison study: January 06, 2017. Findings: The patient is status post prior median sternotomy. A unipolar pacemaker is seen in the right heart via the left side. EKG electrodes are seen. Patient is rotated slightly to the left for the current exposure. Heart is enlarged as before. Pulmonary vasculature is not increased. No infiltrate is seen. There is no evidence of pleural effusion or pulmonary edema. Impression: Cardiomegaly with pacemaker and prior sternotomy. No evidence of pleural effusion or pulmonary edema. No infiltrate seen. Electronically Signed by Royer Griffin MD 08/20/2018 10:56 A
--- NOTE | 2018-08-20 08:57 | REP ---
Left foot series: Four views. History: Rule out osteomyelitis. Findings: Four views left foot show extensive arterial vascular calcification throughout the midfoot, forefoot and extending distally into the digital arteries of each digit. No soft tissue gas is seen. No acute bony erosive change is appreciated. Impression: Marked diffuse soft tissue vascular calcification. No soft tissue gas or acute bony destructive lesions seen. Electronically Signed by Royer Griffin MD 08/20/2018 08:49 A
[2018-08-20 09:12] LABS: BASO # 0.1 10^3/uL (0.0-0.2); BASO % 0.4 % (0.0-1.0); HEMATOCRIT 25.2 % (36.0-47.0); HEMOGLOBIN 7.9 g/dl (12.0-15.5); LYMPH # 2.4 10^3/uL (1.5-4.5); LYMPH % 13.1 % (24.0-44.0); MEAN CORPUSCULAR HEMOGLOBIN 29.7 pg (27.0-33.0); MEAN CORPUSCULAR HGB CONC 31.3 g/dl (32.0-36.5); MEAN CORPUSCULAR VOLUME 94.7 fl (80.0-96.0); MONO % 5.4 % (0.0-5.0); NEUTROPHILS # 14.5 10^3/uL (1.8-7.7); NEUTROPHILS % 79.9 % (36.0-66.0); PLATELET COUNT, AUTOMATED 271 10^3/uL (150-450); RED BLOOD COUNT 2.66 10^6/uL (4.00-5.40); WHITE BLOOD COUNT 18.1 10^3/uL (4.0-10.0)
[2018-08-20] MEDS ORDERED: NS 250 ML IV ONE (09:15)
[2018-08-20 09:21] LABS: PROTHROMBIN TIME 13.3 SECONDS (12.1-14.4)
[2018-08-20 09:22] LABS: PARTIAL THROMBOPLASTIN TIME 29.2 SECONDS (25.4-37.6)
[2018-08-20 09:43] LABS: INFLUENZA A AMPLIFICATION NEGATIVE (NEGATIVE); INFLUENZA B AMPLIFICATION NEGATIVE (NEGATIVE)
[2018-08-20 09:58] LABS: ALT/SGPT 13 U/L (12-78); BILIRUBIN,DIRECT 0.1 MG/DL (0.0-0.2); BILIRUBIN,TOTAL 0.3 MG/DL (0.2-1.0); BLOOD UREA NITROGEN 59 MG/DL (7-18); CALCIUM LEVEL 8.3 MG/DL (8.8-10.2); CARBON DIOXIDE LEVEL 27 MEQ/L (21-32); CHLORIDE LEVEL 98 MEQ/L (98-107); CPK CREATINE PHOSPHOKINASE 51 U/L (26-192); CREATININE FOR GFR 7.64 MG/DL (0.55-1.30); FREE T4 1.03 NG/DL (0.76-1.46); GLOMERULAR FILTRATION RATE 5.7 (>45); GLUCOSE, FASTING 80 MG/DL (70-100); LIPASE 98 U/L (73-393); MB/CK RELATIVE INDEX 7.25 (< OR =4); POTASSIUM SERUM 3.2 MEQ/L (3.5-5.1); SODIUM LEVEL 137 MEQ/L (136-145); THYROXINE (T4) 6.9 UG/DL (4.5-12.0); TOTAL PROTEIN 6.5 GM/DL (6.4-8.2); TROPONIN I 0.76 NG/ML (< 0.10)
[2018-08-20] MEDS ORDERED: VANCOMYCIN HCL 1,000 MG, VIAL MATE ADAPTER 1 EACH in D5W 250 ML IV ONE (10:15)
[2018-08-20] MEDS ORDERED: PIPERACILLIN/TAZOBACTAM SOD 4.5 GM in D5W MINI-BAG PLUS 50 ML IV ONE (10:15)
[2018-08-20] MEDS ORDERED: NS 500 ML IV ONE (10:15)
[2018-08-20 10:24] LABS: INR 1.06; PROTHROMBIN TIME 13.9 SECONDS (12.1-14.4)
[2018-08-20 10:25] LABS: PARTIAL THROMBOPLASTIN TIME 28.9 SECONDS (25.4-37.6)
--- NOTE | 2018-08-20 10:36 | REP ---
CT chest without contrast: History: Shortness of breath. Elevated white blood cell count. Renal failure. No comparison chest CT. CT findings: A pacemaker power plant is seen in the subclavicular soft tissues. The patient is status post prior median sternotomy. There is extensive vascular calcifications versus stent placement in the coronary artery distribution. Cardiomegaly is observed. No pericardial or pleural effusion is seen. Upper abdominal ascites is noted. There is no evidence of infiltrate in the lung weinstein. There are scattered fibrotic changes in the bases. Impression: Cardiomegaly. Prior sternotomy with pacemaker. Scattered fibrotic areas. No infiltrate or effusion seen. Electronically Signed by Royer Griffin MD 08/20/2018 10:59 A
[2018-08-20 11:01] LABS: NT-PRO BNP > 175000 PG/ML (<125)
--- NOTE | 2018-08-20 11:03 | REP ---
CT abdomen and pelvis without IV or oral contrast: History: Abdomen pain. Elevated white blood cell count. Renal failure patient. No comparison abdomen CT. Findings: Preliminary field marketing coordinator radiograph shows an unremarkable bowel gas pattern. There is extensive vascular calcification noted. There is mild to moderate diffuse abdominal ascites. Peritoneal dialysis catheter is noted in place coiled in the pelvic peritoneal space anteriorly. Small and large bowel loops are normal in the caliber and distribution. Gallstones are noted in the dependent portion the gallbladder. No focal hepatic or splenic lesion is seen. No uterine or adnexal abnormality is seen. Kidneys are atrophic showing prominent vascular calcification. Impression: Mild to moderate diffuse ascites with peritoneal dialysis catheter in place. Advanced diffuse vascular calcification. Gallstones. Otherwise no acute intra-abdominal abnormality. Electronically Signed by Royer Griffin MD 08/20/2018 07:19 P
[2018-08-20] MEDS ORDERED: ASPI1TAB15 PO (11:15)
[2018-08-20] MEDS ORDERED: CETI10TA PO (11:15)
[2018-08-20] MEDS ORDERED: OXYC1TAB23 PO (11:15)
[2018-08-20 11:16] LABS: APPEARANCE, BODY FLUID CLEAR (CLEAR); PERITONEAL FL COLOR COLORLESS (COLORLESS); SOURCE, BODY FLUID PERITONEAL
[2018-08-20] MEDS ORDERED: GLUCAGON FOR INJ 1 MG VIAL (J1610) SC PRN (13:00)
[2018-08-20] MEDS ORDERED: ONDANSETRON 4MG/2ML VIAL (J2405) IV PRN (13:00)
[2018-08-20] MEDS ORDERED: GLUCOSE 4 GM CHEW TABLET PO PRN (13:00)
[2018-08-20] MEDS ORDERED: DEXTROSE 50% 50 ML SYRINGE IV PRN (13:00)
[2018-08-20] MEDS ORDERED: VANCOMYCIN HCL 750 MG, VIAL MATE ADAPTER 1 EACH in D5W 250 ML IV SCH (13:00)
[2018-08-20 13:45] VITALS: BP 91/54
--- NOTE | 2018-08-20 13:48 | ECGEPIP ---
Stationary ECG Study [facility] - ED Test Date: 2018-08-20 Pat Name: KANE MAGANA Department: Room: - Gender: F Network Administrator: cyndi : [id number] Requested By: Denise Abreu Order Number: [id number] Reading MD: Anaya Putnam Measurements Intervals [place] Rate: 65 P: 63 [place]: 167 QRS: -26 QRSD: 124 T: 182 QT: 455 QTc: 474 Interpretive Statements SINUS RHYTHM LVH BORDERLINE LEFT AXIS DEVIATION MODERATE INTRAVENTRICULAR CONDUCTION DELAY ST DEVIATION AND MODERATE T-WAVE ABNORMALITY, CONSIDER ISCHEMIA ST CHANGES MORE PRONOUNCED COMPARED 01/06/17 Electronically Signed On 08-20-2018 13:47:47 EST by Anaya Putnam
[2018-08-20] MEDS: POTASSIUM CHLORIDE 10 MEQ SR TABLET PO SCH (15:12)
[2018-08-20] MEDS: CLOPIDOGREL 75 MG TAB PO SCH (15:12)
[2018-08-20 15:45] VITALS: BP 91/54
[2018-08-20] MEDS: NEPHRO-VIT TAB (NEPHROCAPS) PO SCH (16:07)
[2018-08-20] MEDS: (RENVELA) SEVELAMER **CARBONate** 800 MG TAB PO SCH (18:20)
[2018-08-20] MEDS: HumaLOG INSULIN (NovoLOG) PER UNIT SC SCH ×2 (18:20→20:54)
--- NOTE | 2018-08-20 19:07 | CR ---
DATE OF CONSULTATION: 08/20/2018 NEPHROLOGY CONSULTATION FOR: Sammi Benavides MD REASON FOR CONSULTATION: To assist in the management of end-stage renal disease. HISTORY OF PRESENT ILLNESS: Ms. Sesay is a 63-year-old female with known history of diabetes, hypertension, end-stage renal disease and an ongoing ulcer on her left heel. She presented to the emergency room last evening with hyperglycemia as her blood sugars were quite high at home. She feels that she never had high blood sugars before. In the emergency room, she was treated for hyperglycemia and then discharged. However, when she walked to her car, she felt faint and called the emergency room. She was advised to come back and then her labs were done. She was found to be anemic with hemoglobin of 7.9 and hematocrit 25.2. White cell count 18.1. It is felt that she has some kind of infective process due to which she had her symptoms. She is now being admitted. I was called by the emergency room physician earlier, and I saw the patient in the emergency room. She is now being admitted for further evaluation and care. PAST MEDICAL HISTORY: Significant for: 1. Longstanding history of diabetes. 2. Hypertension. 3. End-stage renal disease. 4. Coronary artery disease, status post quadruple bypass surgery. 5. History of anemia of end-stage renal disease. 6. History of discitis. 7. Ischemic cardiomyopathy with ejection fraction of 20-25%. 8. History of congestive heart failure. 9. History of Clostridium difficile colitis in the past. 10. Peripheral vascular disease. 11. Hyperlipidemia. 12. History of osteomyelitis of L5 and S1. 13. History of cardiac arrest during peritoneal dialysis catheter placement. PAST SURGICAL HISTORY: Significant for: 1. Coronary artery bypass graft (CABG) for four-vessels. 2. Peritoneal dialysis catheter placement. 3. Perma-Cath placement and removal. 4. Tubal ligation. 5. Cataract surgery. 6. Heart catheterization. ALLERGIES: She had allergy to BUMEX and CODEINE. CURRENT MEDICATIONS: Her medications include Zosyn 2.25 grams every 12 hours, vancomycin 750 mg every 24 hours, Senokot S one tablet twice a day, heparin 5000 units every 12 hours, aspirin 81 mg daily, atorvastatin 20 mg daily, Levemir insulin 20 units at bedtime, Humalog insulin per sliding scale, Renvela 1600 mg three times a day with meals, Zofran 4 mg every 6 hours as needed for nausea, Plavix 75 mg daily, potassium chloride 20 mEq daily and multivitamin one tablet daily. PERSONAL AND SOCIAL HISTORY: The patient denies any recreational drug use or alcohol use. She never smoked. FAMILY HISTORY: Significant for diabetes, breast cancer and bone cancer in her mother. Father has a history of prostate and colon cancer. REVIEW OF SYSTEMS: On review of head and neck, she denies any sore throat, sinus problems or nosebleed. She felt faint when she was getting in her car today after her first visit to the emergency room. Cardiovascular system is significant for ischemic cardiomyopathy with ejection fraction of 25%. She denies any chest pain or dyspnea at present. Her leg edema has been well controlled with the dialysis. Respiratory system is negative for cough or hemoptysis. Gastrointestinal (GI) system is negative for nausea, vomiting or diarrhea. Genitourinary () system is negative for dysuria or hematuria. She denies any flank pain. Musculoskeletal system is significant for an ulcer on her left heel, which has been debrided recently by house wirer helper. Endocrine system is significant for type 2 diabetes and secondary hyperparathyroidism. She had hyperglycemia due to which she presented to the emergency room. Psychosocial system is significant for mild depression. Neurological system is negative for seizures or stroke. Hematological system is significant for anemia. PHYSICAL EXAMINATION: The patient is awake and alert at the time of my visit. Temperature is 98.4 degrees Fahrenheit, heart rate 68 per minute and respiratory rate 18 per minute. Blood pressure 123/55 mmHg and oxygen saturation is 94% on room air. Head: Atraumatic. Neck is supple and jugular venous distention (JVD) is minimally elevated. There is no thyroid enlargement. There is no oral thrush or ulcers. Pupils are equal and reactive to light and sclera is anicteric. Heart: Sounds are regular with systolic murmur grade 2/6 and there is no pericardial friction rub. Lungs: Sound clear to auscultation. Abdomen: Soft and nontender and bowel sounds are present. Peritoneal dialysis catheter in right lower abdomen is intact without any signs of infection. Extremities have no cyanosis or clubbing. Left heel ulcer is covered with a dressing. Neurologically, she is awake, alert and oriented times three. LABORATORY DATA: Sodium 137, potassium 3.2, CO2 27, BUN 59 and creatinine 7.64. Glucose is now 80 and lactic acid was 2.2 and a repeat lactic acid is 3.0. Calcium 8.3, AST 14, ALT 13, alkaline phosphatase 122, troponin 0.76, pro-BNP level greater than 175,000, albumin 2.0, TSH 5.11 and free T4 1.03. INR is 1.0. She had an x-ray of her foot, which did not show any evidence of osteomyelitis. CT scan of abdomen and pelvis was done which showed [id number] diffuse ascites with peritoneal dialysis catheter in place and gallstones. No other acute intra-abdominal process was noticed. A chest CT scan was also done, which showed cardiomegaly, prior sternotomy with pacemaker and scattered fibrotic area. No acute effusion or infiltrate. Chest x-ray was unremarkable. PROBLEM #1: End-stage renal disease. The patient has been on peritoneal dialysis at home. She did not perform complete treatment last evening. We will put her on continuous ambulatory peritoneal dialysis (CAPD) with five exchanges per day. Will use 2 liter exchange with 1.5% solution in view of her hypovolemia and syncope. PROBLEM #2: Anemia. She does have worsening anemia, even though her stool was reported negative for occult blood. She will need to be transfused at least two units of packed red blood cells (RBCs). We will check her iron studies and treat her with intravenous iron if she has iron deficiency. PROBLEM #3: Leukocytosis and left foot ulcer. The patient probably does have some kind of infection as her lactic acid is also elevated. CT scan of the chest, abdomen and pelvis is negative for any acute process. Blood cultures have already been done. Peritoneal dialysis solution has been checked, and there is no evidence of peritonitis. Broad-spectrum antibiotics should be continued. PROBLEM #4: Cardiomyopathy and chronic systolic congestive heart failure. She has known history of severe cardiomyopathy. However, clinically her volume status seems reasonably well compensated. In view of her near syncope, we will perform peritoneal dialysis exchanges with only 1.5% solution and monitor her closely. Thank you for involving me in the care of Ms. Sesay. I will follow her along with you.
[2018-08-20 19:24] LABS: PHOSPHORUS LEVEL 5.6 MG/DL (2.5-4.9)
[2018-08-20] MEDS: ATORVASTATIN 20 MG TAB PO SCH (20:53)
[2018-08-20] MEDS: SENOKOT S TAB PO SCH (20:53)
[2018-08-20] MEDS: HEPARIN SOD (PORCINE) 5000 UNITS/ML VIAL SC SCH (20:53)
[2018-08-20] MEDS: ASPIRIN 81 MG ENTERIC TAB PO SCH (20:53)
[2018-08-20] MEDS: LEVEMIR (INSULIN DETEMIR) 1 UNITS/0.01ML SC SCH (20:54)
[2018-08-20] MEDS ORDERED: VANCOMYCIN INTERMITTENT/PULSE DOSING BY CLINICAL PHARMACIST PER DOSING PROTOCOL XX SCH (21:15)
--- NOTE | 2018-08-20 21:26 | PHACANCOPD ---
PHARMACY VANCOMYCIN DOSING Pt Demographics Demographics Patient Age:63 , Weight:84.090 , Gender: female Adjusted Body Weight Events Past 24 Hours Events Past 24 Hours: NO: Dialysis, Diuretic Therapy, Change in CrCl, Fever, Elevation in WBC, Pending Diagnostics, Pending Procedures, Other Vancomycin Vancomycin indication: SSSI Vancomycin Target Ranges: 15-20 mcg/ml Vancomycin Load Y/N: No Load Dose Date Time Vancomycin Load Dose: Date: Time: Vancomycin Dose Date: 08/20/18. Current Vancomycin Dose: [VANCO 1GM IV x1 @12:40] Intermittent Dosing?: Yes Labs Labs Laboratory Tests 08/20/18 08:56 Red Blood Count 2.66 L, Mean Corpuscular Volume 94.7, Mean Corpuscular Hemoglobin 29.7, Mean Corpuscular Hemoglobin Concent 31.3 L, Red Cell Distribution Width 13.6, Neutrophils (%) (Auto) 79.9 H, Lymphocytes (%) (Auto) 13.1 L, Monocytes (%) (Auto) 5.4 H, Eosinophils (%) (Auto) 0.0, Basophils (%) (Auto) 0.4, Neutrophils # (Auto) 14.5 H, Lymphocytes # (Auto) 2.4, Monocytes # (Auto) 1.0 H, Eosinophils # (Auto) 0.0, Basophils # (Auto) 0.1 Micro Microbiology 08/20/18 Blood Culture, Received Pending 08/20/18 Blood Culture, Received Pending 08/20/18 Gram Stain - Final, Resulted 08/20/18 Body Fluid Culture, Resulted Pending 08/20/18 Wound Culture, Received Pending Creatinine Clearance Date:08/20/18. Creatinine Clearance: [<10 ml/min]. Assessment and Plan Maintaining Current Dose?: Yes Reason for dose change: Other Pharmacist Note Pharmacist Note Date: 08/20/18. PharmD note: Hx of HOME PD. VANCO 1GM IV GIVEN x1 DOSE DURING TO NOON OUR TODAY WE WILL SCHEDULE DAILY VANCO RANDOM LEVELS x7 DAYS VANCO 1GM IV x1 DOSES INTERMITTENTLY WHEN RANDOM LEVELS BETWEEN 15-20 mcg/ml [facility] Aug 20, 2018 21:26
[2018-08-20 22:00] VITALS: BP 116/52
[2018-08-20] MEDS: PIPERACILLIN/TAZOBACTAM SOD 2.25 GM in D5W MINI-BAG PLUS 50 ML IV SCH (22:11)
[2018-08-20] MEDS: PERCOCET 5MG/325MG TAB PO PRN (23:30)
[2018-08-21] MEDS: (RENVELA) SEVELAMER **CARBONate** 800 MG TAB PO SCH ×3 (09:18→18:16)
[2018-08-21] MEDS: HumaLOG INSULIN (NovoLOG) PER UNIT SC SCH ×4 (09:18→20:50)
[2018-08-21] MEDS: SENOKOT S TAB PO SCH ×2 (10:01→20:07)
[2018-08-21] MEDS: CLOPIDOGREL 75 MG TAB PO SCH (10:01)
[2018-08-21] MEDS: PIPERACILLIN/TAZOBACTAM SOD 2.25 GM in D5W MINI-BAG PLUS 50 ML IV SCH ×2 (10:01→23:22)
[2018-08-21] MEDS: NEPHRO-VIT TAB (NEPHROCAPS) PO SCH (10:01)
[2018-08-21] MEDS: HEPARIN SOD (PORCINE) 5000 UNITS/ML VIAL SC SCH ×2 (10:01→20:08)
[2018-08-21] MEDS: POTASSIUM CHLORIDE 10 MEQ SR TABLET PO SCH (10:02)
[2018-08-21 10:13] LABS: BASO # 0.1 10^3/uL (0.0-0.2); BASO % 0.4 % (0.0-1.0); HEMATOCRIT 30.3 % (36.0-47.0); HEMOGLOBIN 9.6 g/dl (12.0-15.5); LYMPH # 2.1 10^3/uL (1.5-4.5); MEAN CORPUSCULAR HEMOGLOBIN 29.4 pg (27.0-33.0); MEAN CORPUSCULAR HGB CONC 31.7 g/dl (32.0-36.5); MEAN CORPUSCULAR VOLUME 92.7 fl (80.0-96.0); MONO # 0.7 10^3/uL (0.0-0.8); MONO % 4.5 % (0.0-5.0); NEUTROPHILS % 80.3 % (36.0-66.0); PLATELET COUNT, AUTOMATED 230 10^3/uL (150-450); RED BLOOD COUNT 3.27 10^6/uL (4.00-5.40)
[2018-08-21 10:34] LABS: CALCIUM LEVEL 8.6 MG/DL (8.8-10.2); CREATININE FOR GFR 7.61 MG/DL (0.55-1.30); GLOMERULAR FILTRATION RATE 5.7 (>45); MAGNESIUM LEVEL 2.1 MG/DL (1.8-2.4); PHOSPHORUS LEVEL 6.3 MG/DL (2.5-4.9); POTASSIUM SERUM 3.9 MEQ/L (3.5-5.1)
--- NOTE | 2018-08-21 10:42 | PHACANCOPD ---
PHARMACY VANCOMYCIN DOSING Pt Demographics Demographics Patient Age:63 , Weight:84.090 , Gender: female Adjusted Body Weight Vancomycin Vancomycin indication: SSSI Vancomycin Target Ranges: 15-20 mcg/ml Vancomycin Load Y/N: No Load Dose Date Time Vancomycin Load Dose: Date: Time: Vancomycin Dose Date: 08/20/18. Current Vancomycin Dose: [VANCO 1GM IV x1 @12:40] Intermittent Dosing?: Yes Labs Micro Microbiology 08/20/18 Blood Culture - Preliminary, Resulted No growth after 24 hours . All specim... 08/20/18 Blood Culture - Preliminary, Resulted No growth after 24 hours . All specim... 08/20/18 Gram Stain - Final, Resulted 08/20/18 Body Fluid Culture, Resulted Pending 08/20/18 Wound Culture, Received Pending Creatinine Clearance Date:08/20/18. Creatinine Clearance: [<10 ml/min]. Assessment and Plan Maintaining Current Dose?: Yes Reason for dose change: No Dose Change Pharmacist Note Pharmacist Note 08/21/18: Day #2 IV vancomycin tx. Random level this AM resulted at 14mcg/ml after 1 dose. We will re-dose with another 1g dose of vancomycin today for the treatment of a left heal ulcer. A random level has been scheduled to be drawn tomorrow with AM labs, and we will continue intermittent dosing based on these random levels while the patient is on CAPD. We will continue to monitor and schedule further doses accordingly. Date: 08/20/18. PharmD note: Hx of HOME PD. VANCO 1GM IV GIVEN x1 DOSE DURING TO NOON OUR TODAY WE WILL SCHEDULE DAILY VANCO RANDOM LEVELS x7 DAYS VANCO 1GM IV x1 DOSES INTERMITTENTLY WHEN RANDOM LEVELS BETWEEN 15-20 mcg/ml [facility] Aug 21, 2018 10:41
[2018-08-21] MEDS ORDERED: VANCOMYCIN HCL 1,000 MG, VIAL MATE ADAPTER 1 EACH in D5W 250 ML IV ONE (11:00)
--- NOTE | 2018-08-21 11:50 | IPN ---
DATE OF VISIT: 08/21/2018 Mrs. Sesay is seen this morning on her bedside. She is feeling much better today and received 2 units of packed RBCs. She denies any dyspnea, chest pain, nausea or vomiting. She was admitted with presyncope and also noticed to have elevated white count and workup for infection is so far unremarkable. She has an ulcer on her left heel, however x-ray did not show any osteomyelitis. Her blood cultures have been negative so far. Her PD fluid was noticed to be clean and no signs of peritonitis were noted. She was anemic and has received 2 units of packed RBCs. Peritoneal dialysis has been functioning well. PHYSICAL EXAMINATION: She is awake and alert and without any acute distress. Temperature is 97.2 degrees Fahrenheit, heart rate 72 per minute and respiratory rate 18 per minute. Blood pressure 116/52 mmHg and oxygen saturation 95% on room air. Her head is atraumatic. Neck is supple and JVD is mildly elevated. Heart sounds are regular with systolic murmur grade 2/6. Lungs clear to auscultation. Abdomen soft and nontender and without any palpable organomegaly. She has a peritoneal dialysis fluid filling her belly and the dialysis catheter is without any signs of infection. Extremities have no cyanosis or clubbing. Neurologically she is awake, alert and oriented times three. Today's labs show sodium 132, potassium 3.9, CO2 25, BUN 64 and creatinine 7.61. Calcium 8.6 and phosphorus is 6.3. A repeat lactic acid level is still pending. WBC count is down to 15.0, hemoglobin is up to 9.6 and hematocrit 30.3. Platelets 230. Random vancomycin level is 14.0. Blood cultures and peritoneal fluid cultures are negative so far. PROBLEMS: 1. End-stage renal disease. The patient remains on peritoneal dialysis, which is functioning reasonably well and will continue with current prescription. We are using 1.5 liters solution 2 liters bags for five exchanges per day. 2. Hyponatremia. This is mild and related to end-stage renal disease. She is not receiving any IV fluids at present and we will recheck her electrolytes tomorrow. 3. Hypokalemia. Potassium level has corrected with potassium supplement since yesterday. No further intervention is indicated. The patient should remain on regular diet. 4. Hyperphosphatemia. This is related to end-stage renal disease and I am going to increase her Renvela dose to 2400 mg t.i.d. 5. Anemia. Her anemia has improved following transfusion of 2 units of packed RBCs. She just finished her transfusion this morning. 6. Sepsis. She had leukocytosis and elevated lactic acid level suggestive of some kind of infective process. All workup has been negative so far. She remains on vancomycin and Zosyn empirically.
--- NOTE | 2018-08-21 12:40 | IPNPDOC ---
Date Seen The patient was seen on 08/21/18. Progress Note SUBJECTIVE: pt denies any recurrent chills, no sob/abd pain/nausea/vomiting. no pain in left hallux and 2nd toe despite dry gangrene. c/o fatigue, difficulty with balance and ambulation. Pt's back pain is unchanged, and no recent instrumentation of her back. OBJECTIVE: Physical Examination vitals: pls see below General Exam: Positive: Alert, Cooperative, No Acute Distress Eye Exam: Positive: PERRLA, Conjunctiva & lids normal, EOMI; Negative: Sclera icteric ENT Exam: Positive: Atraumatic, Mucous membr. moist/pink, Pharynx Normal Neck Exam: Positive: Supple; Negative: JVD, thyromegaly Chest Exam: Positive: Clear to auscultation, Normal air movement Heart Exam: Positive: Rate Normal, Regular Rhythm, Normal S1, Normal S2; Negative: Murmurs, Rubs Abdomen Exam: Positive: Normal bowel sounds, Soft; Negative: Tenderness, Hepatospenomegaly Extremity Exam: Positive: Normal pulses, left heel ulcer,dry gangrene in left hallux and 2nd toe Negative: Clubbing, Cyanosis, Edema Skin Exam: Positive: Nl turgor and temperature; Negative: Breakdown, Lesion Psych Exam: Positive: Mental status NL, Mood NL, Oriented x 3 LABORATORY DATA, IMAGING STUDIES, MICROBIOLOGY: REVIEWED, PLS SEE BELOW ASSESSMENT AND PLAN: 63-year-old female with ischemic cardiomyopathy with EF of 23% as of [address], coronary artery disease status post CABG, 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 difficile infection, PVD, diabetes mellitus type 2, hyperlipidemia , CVA in the past, anemia of chronic disease, diabetic neuropathy, initially present to the ED around 2 am on 08/20/18 for a blood sugar reading of high a home. Patient had gone to bed at her usual time of around 10 pm with her cycler in place woke up around 2 am feeling uncomfortable, antsy, restless could not go back to sleep. this happened the previous night also. This night she checked her blood sugar due to this vague restless and uncomfortable feeling and found it reading HIGH so came to the ED. In the ED she was managed for hyperglycemia overnight . In the morning around 7 am her sugar was 112 so she was discharged home. She said that she was still not feeling her normal self. Was still dizzy and weak and had some trouble to with balance while walking. She was outside the ED getting into the car which her sister was driving when suddenly everything blacked out in front of her and she almost passed out so came back to the ED for reevaluation. Pateint also mentioned that for the past 2 days she has been having some bowel issues. She has been having some abdominal cramps and tenesmus and sensation of not emptying completely so having to go again and again with small . She also says she had seen Dr Truong 4 days ago and he had debrided the left heel ulcer. In the ED pateint was found to have a WBC of 18k and elevated lactate. Her PD fluid was tested and was negative for any peritonitis. Pateint was noted to be anemic to 7.9 down from her baseline of about 10.[address] abdomen pelvis and CT chest are unremarkable, PD fluid clear Had recent debridement done of a chronic heel ulcer which may have thrown a transient shower of bacteria into the blood blood culture have been sent continue empiric antibiotics Zosyn and vancomycin. consulted vascular surgery for revascularization, podiatry dr. truong. Near syncope will monitor on telemetry could be due to anemia and hypotension, underlying infection. transfused 2 units of PRBC negative orthostatics. ESRD on PD for 3 years continue PD exchanges as per nephrology Acute on chronic anemia reviewed iron studies transfused 2 units. Left heel ulcer/gangrenous hallux and 2nd toe continue empiric antibiotics Zosyn and vancomycin. consulted vascular surgery for revascularization, podiatry dr. truong. Longstanding history of diabetes. on consistent carbs diet, resumed home meds, insulin sliding scale Hypertension. resumed home meds Coronary artery disease, status post quadruple bypass surgery. Ischemic cardiomyopathy with ejection fraction of 20-25%. History of discitis/ History of osteomyelitis of L5 and S1. History of congestive heart failure. History of Clostridium difficile colitis in the past. Peripheral vascular disease. Hyperlipidemia. History of cardiac arrest during peritoneal dialysis catheter placement. VS, I&O, 24H, Fishbone Vital Signs/I&O Vital Signs Date Time Temp Pulse Resp B/P (MAP) Pulse Ox O2 Delivery O2 Flow Rate FiO2 08/21/18 00:00 16 Room Air 08/20/18 22:00 97.2 71 116/52 (73) 95 08/20/18 13:45 I&O- Last 24 Hours up to 6 AM 08/21/18 06:00 Intake Total 4070 ml Output Total 1000 ml Balance 3070 ml Laboratory Data 24H LABS Laboratory Tests 2 08/20/18 13:19: Lactic Acid Followup at 4 Hours 3.0*H 08/20/18 17:08: Bedside Glucose (Misc Panel) 224H 08/20/18 20:41: Bedside Glucose (Misc Panel) 267H 08/21/18 09:51: Immature Granulocyte % (Auto) 0.8, White Blood Count 15.0H, Red Blood Count 3.27L, Hemoglobin 9.6L, Hematocrit 30.3L, Mean Corpuscular Volume 92.7, Mean Corpuscular Hemoglobin 29.4, Mean Corpuscular Hemoglobin Concent 31.7L, Red Cell Distribution Width 14.8H, Platelet Count 230, Neutrophils (%) (Auto) 80.3H, Lymphocytes (%) (Auto) 14.0L, Monocytes (%) (Auto) 4.5, Eosinophils (%) (Auto) 0.0, Basophils (%) (Auto) 0.4, Neutrophils # (Auto) 12.0H, Lymphocytes # (Auto) 2.1, Monocytes # (Auto) 0.7, Eosinophils # (Auto) 0.0, Basophils # (Auto) 0.1, Nucleated Red Blood Cells % (auto) 0.4H, Anion Gap 12, Glomerular Filtration Rate 5.7L, Blood Urea Nitrogen 64H, Creatinine 7.61H, Sodium Level 132L, Potassium Level 3.9#, Chloride Level 95L, Carbon Dioxide Level 25, Calcium Level 8.6L, Phosphorus Level 6.3H, Magnesium Level 2.1, Random Vancomycin Level 14.0 08/21/18 11:04: Lactic Acid Level 1.9 CBC/BMP Laboratory Tests 08/21/18 09:51 Red Blood Count 3.27 L, Mean Corpuscular Volume 92.7, Mean Corpuscular Hemoglobin 29.4, Mean Corpuscular Hemoglobin Concent 31.7 L, Red Cell Distribution Width 14.8 H, Neutrophils (%) (Auto) 80.3 H, Lymphocytes (%) (Auto) 14.0 L, Monocytes (%) (Auto) 4.5, Eosinophils (%) (Auto) 0.0, Basophils (%) (Auto) 0.4, Neutrophils # (Auto) 12.0 H, Lymphocytes # (Auto) 2.1, Monocytes # (Auto) 0.7, Eosinophils # (Auto) 0.0, Basophils # (Auto) 0.1, Calcium Level 8.6 L Microbiology Microbiology 08/20/18 Blood Culture - Preliminary, Resulted No growth after 24 hours . All specim... 08/20/18 Blood Culture - Preliminary, Resulted No growth after 24 hours . All specim... 08/20/18 Gram Stain - Final, Resulted 08/20/18 Body Fluid Culture, Resulted Pending 08/20/18 Wound Culture, Received Pending TREVON BURNHAM MD Aug 21, 2018 12:29
[2018-08-21 14:00] VITALS: BP 127/57
[2018-08-21 16:05] VITALS: BP 146/68
[2018-08-21] MEDS ORDERED: POTASSIUM CHLORIDE 10 MEQ SR TABLET PO ONE (16:15)
[2018-08-21] MEDS ORDERED: MAG SULF 1GM/100ML (MAG RUN) 1 GM in APPROPRIATE DILUENT 1 EA IV ONE (16:15)
[2018-08-21] MEDS: ATORVASTATIN 20 MG TAB PO SCH (20:07)
[2018-08-21] MEDS: ASPIRIN 81 MG ENTERIC TAB PO SCH (20:07)
[2018-08-21] MEDS: LEVEMIR (INSULIN DETEMIR) 1 UNITS/0.01ML SC SCH (20:08)
[2018-08-21 22:00] VITALS: BP 113/69
[2018-08-22] MEDS: PERCOCET 5MG/325MG TAB PO PRN (00:07)
[2018-08-22 06:00] VITALS: BP 144/66
[2018-08-22 06:52] LABS: VANCOMYCIN RANDOM 22.4 UG/ML
[2018-08-22] MEDS: HumaLOG INSULIN (NovoLOG) PER UNIT SC SCH ×4 (07:30→21:00)
--- NOTE | 2018-08-22 07:35 | PHACANCOPD ---
PHARMACY VANCOMYCIN DOSING Pt Demographics Demographics Patient Age:63 , Weight:84.090 , Gender: female Adjusted Body Weight Vancomycin Vancomycin indication: SSSI Vancomycin Target Ranges: 15-20 mcg/ml Vancomycin Load Y/N: No Load Dose Date Time Vancomycin Load Dose: Date: Time: Vancomycin Dose Date: 08/20/18. Current Vancomycin Dose: [VANCO 1GM IV x1 @12:40] Intermittent Dosing?: Yes Labs Micro Microbiology 08/20/18 Blood Culture - Preliminary, Resulted No growth after 24 hours . All specim... 08/20/18 Blood Culture - Preliminary, Resulted No growth after 24 hours . All specim... 08/20/18 Gram Stain - Final, Resulted 08/20/18 Body Fluid Culture, Resulted Pending 08/20/18 Wound Culture, Received Pending Creatinine Clearance Date:08/20/18. Creatinine Clearance: [<10 ml/min]. Assessment and Plan Maintaining Current Dose?: No Reason for dose change: Trough too high Pharmacist Note Pharmacist Note 08/22/18: Day #3 IV vancomycin tx. Random level this AM resulted at 22.4mcg/ml after 2 doses. We will hold any further doses today and follow-up on tomorrow's random level for further dosing. 08/21/18: Day #2 IV vancomycin tx. Random level this AM resulted at 14mcg/ml after 1 dose. We will re-dose with another 1g dose of vancomycin today for the treatment of a left heal ulcer. A random level has been scheduled to be drawn tomorrow with AM labs, and we will continue intermittent dosing based on these random levels while the patient is on CAPD. We will continue to monitor and schedule further doses accordingly. Date: 08/20/18. PharmD note: Hx of HOME PD. VANCO 1GM IV GIVEN x1 DOSE DURING TO NOON OUR TODAY WE WILL SCHEDULE DAILY VANCO RANDOM LEVELS x7 DAYS VANCO 1GM IV x1 DOSES INTERMITTENTLY WHEN RANDOM LEVELS BETWEEN 15-20 mcg/ml [facility] Aug 22, 2018 07:35
[2018-08-22] MEDS: (RENVELA) SEVELAMER **CARBONate** 800 MG TAB PO SCH ×3 (08:00→18:33)
[2018-08-22] MEDS: HEPARIN SOD (PORCINE) 5000 UNITS/ML VIAL SC SCH ×2 (08:46→22:35)
[2018-08-22] MEDS: POTASSIUM CHLORIDE 10 MEQ SR TABLET PO SCH (08:46)
[2018-08-22] MEDS: CLOPIDOGREL 75 MG TAB PO SCH (08:46)
[2018-08-22] MEDS: SENOKOT S TAB PO SCH ×2 (08:46→22:36)
[2018-08-22 10:13] LABS: ALBUMIN 1.8 GM/DL (3.2-5.2); CALCIUM LEVEL 7.9 MG/DL (8.8-10.2); CREATININE FOR GFR 7.42 MG/DL (0.55-1.30); GLOMERULAR FILTRATION RATE 5.9 (>45); HEMATOCRIT 31.1 % (36.0-47.0); HEMOGLOBIN 9.8 g/dl (12.0-15.5); MEAN CORPUSCULAR HEMOGLOBIN 29.2 pg (27.0-33.0); MEAN CORPUSCULAR HGB CONC 31.5 g/dl (32.0-36.5); MEAN CORPUSCULAR VOLUME 92.6 fl (80.0-96.0); PHOSPHORUS LEVEL 5.5 MG/DL (2.5-4.9); PLATELET COUNT, AUTOMATED 266 10^3/uL (150-450); POTASSIUM SERUM 3.5 MEQ/L (3.5-5.1); RED BLOOD COUNT 3.36 10^6/uL (4.00-5.40); WHITE BLOOD COUNT 16.3 10^3/uL (4.0-10.0)
[2018-08-22] MEDS: PIPERACILLIN/TAZOBACTAM SOD 2.25 GM in D5W MINI-BAG PLUS 50 ML IV SCH ×2 (10:15→22:35)
[2018-08-22] MEDS: NEPHRO-VIT TAB (NEPHROCAPS) PO SCH (10:15)
--- NOTE | 2018-08-22 11:02 | IPNPDOC ---
Date Seen The patient was seen on 08/22/18. Progress Note SUBJECTIVE: Awaiting vascular surgery recommendations. Pt has no new complaints. denies any recurrent chills, fever. white count has improved on empiric antibiotics. Per patient, Dr. Truong [employer] has referred her to Dr. Pratt, Vascular Surgery for all issues. She is resistant to amputation, and would like a second opinion if that is offered. OBJECTIVE: Physical Examination vitals: pls see below General Exam: Positive: Alert, Cooperative, No Acute Distress Eye Exam: Positive: PERRLA, Conjunctiva & lids normal, EOMI; Negative: Sclera icteric ENT Exam: Positive: Atraumatic, Mucous membr. moist/pink, Pharynx Normal Neck Exam: Positive: Supple; Negative: JVD, thyromegaly Chest Exam: Positive: Clear to auscultation, Normal air movement Heart Exam: Positive: Rate Normal, Regular Rhythm, Normal S1, Normal S2; Negative: Murmurs, Rubs Abdomen Exam: Positive: Normal bowel sounds, Soft; Negative: Tenderness, Hepatospenomegaly Extremity Exam: Positive: Normal pulses, left heel ulcer,dry gangrene in left hallux and 2nd toe Negative: Clubbing, Cyanosis, Edema Skin Exam: Positive: Nl turgor and temperature; Negative: Breakdown, Lesion Psych Exam: Positive: Mental status NL, Mood NL, Oriented x 3 LABORATORY DATA, IMAGING STUDIES, MICROBIOLOGY: REVIEWED, PLS SEE BELOW ASSESSMENT AND PLAN: 63-year-old female with ischemic cardiomyopathy with EF of 23% as of [address], coronary artery disease status post CABG, 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 difficile infection, PVD, diabetes mellitus type 2, hyperlipidemia , CVA in the past, anemia of chronic disease, diabetic neuropathy, initially present to the ED around 2 am on 08/20/18 for a blood sugar reading of high a home. Patient had gone to bed at her usual time of around 10 pm with her cycler in place woke up around 2 am feeling uncomfortable, antsy, restless could not go back to sleep. this happened the previous night also. This night she checked her blood sugar due to this vague restless and uncomfortable feeling and found it reading HIGH so came to the ED. In the ED she was managed for hyperglycemia overnight . In the morning around 7 am her sugar was 112 so she was discharged home. She said that she was still not feeling her normal self. Was still dizzy and weak and had some trouble to with balance while walking. She was outside the ED getting into the car which her sister was driving when suddenly everything blacked out in front of her and she almost passed out so came back to the ED for reevaluation. Pateint also mentioned that for the past 2 days she has been having some bowel issues. She has been having some abdominal cramps and tenesmus and sensation of not emptying completely so having to go again and again with small . She also says she had seen Dr Truong 4 days ago and he had debrided the left heel ulcer. In the ED pateint was found to have a WBC of 18k and elevated lactate. Her PD fluid was tested and was negative for any peritonitis. Pateint was noted to be anemic to 7.9 down from her baseline of about 10.[address] abdomen pelvis and CT chest are unremarkable, PD fluid clear Had recent debridement done of a chronic heel ulcer which may have thrown a transient shower of bacteria into the blood blood culture have been sent continue empiric antibiotics Zosyn and vancomycin. consulted vascular surgery for revascularization, podiatry dr. truong. Near syncope will monitor on telemetry could be due to anemia and hypotension, underlying infection. transfused 2 units of PRBC negative orthostatics. ESRD on PD for 3 years continue PD exchanges as per nephrology Acute on chronic anemia reviewed iron studies transfused 2 units. Left heel ulcer/gangrenous hallux and 2nd toe continue empiric antibiotics Zosyn and vancomycin. consulted vascular surgery for revascularization, podiatry dr. truong. Longstanding history of diabetes. on consistent carbs diet, resumed home meds, insulin sliding scale Hypertension. resumed home meds Coronary artery disease, status post quadruple bypass surgery. Ischemic cardiomyopathy with ejection fraction of 20-25%. History of discitis/ History of osteomyelitis of L5 and S1. History of congestive heart failure. History of Clostridium difficile colitis in the past. Peripheral vascular disease. Hyperlipidemia. History of cardiac arrest during peritoneal dialysis catheter placement. VS, I&O, 24H, Fishbone Vital Signs/I&O Vital Signs Date Time Temp Pulse Resp B/P (MAP) Pulse Ox O2 Delivery O2 Flow Rate FiO2 08/22/18 06:00 97.0 70 18 144/66 (92) 93 08/22/18 00:37 Room Air 08/20/18 13:45 I&O- Last 24 Hours up to 6 AM 08/22/18 05:59 Intake Total 40556 ml Output Total 92322 ml Balance 1090 ml Laboratory Data 24H LABS Laboratory Tests 2 08/21/18 11:04: Lactic Acid Level 1.9 08/21/18 11:39: Bedside Glucose (Misc Panel) 229H 08/21/18 17:17: Bedside Glucose (Misc Panel) 293H 08/21/18 20:22: Bedside Glucose (Misc Panel) 261H 08/22/18 06:04: Bedside Glucose (Misc Panel) 47L 08/22/18 06:06: Bedside Glucose (Misc Panel) 44L 08/22/18 06:13: Nucleated Red Blood Cells % (auto) 0.4H, Blood Urea Nitrogen 60H, Creatinine 7.42H, Sodium Level 134L, Potassium Level 3.5, Chloride Level 96L, Carbon Dioxide Level 24, Anion Gap 14, Glomerular Filtration Rate 5.9L, Calcium Level 7.9L, Phosphorus Level 5.5H, Albumin 1.8L, Random Vancomycin Level 22.4 08/22/18 06:21: Bedside Glucose (Misc Panel) 51L 08/22/18 06:36: Bedside Glucose (Misc Panel) 76L CBC/BMP Laboratory Tests 08/22/18 06:13 Red Blood Count 3.36 L, Mean Corpuscular Volume 92.6, Mean Corpuscular Hemoglobin 29.2, Mean Corpuscular Hemoglobin Concent 31.5 L, Red Cell Distribution Width 15.3 H, Anion Gap 14 Microbiology Microbiology 08/20/18 Blood Culture - Preliminary, Resulted No Growth after 48 hours. All Specime... 08/20/18 Blood Culture - Preliminary, Resulted No Growth after 48 hours. All Specime... 08/20/18 Gram Stain - Final, Complete 08/20/18 Body Fluid Culture - Final, Complete 08/20/18 Wound Culture, Received Pending TREVON BURNHAM MD Aug 22, 2018 11:02
[2018-08-22] MEDS: MUPIROCIN 2% OINT 22 GM TUBE TOP SCH (13:29)
[2018-08-22 14:00] VITALS: BP 138/65
--- NOTE | 2018-08-22 20:56 | IPN ---
DATE: 08/22/2018 Ms. Sesay is seen this morning on her bedside. She is feeling well; however, she continues to have problems with her leukocytosis and infected heel ulcer. She reports that she has been told by landfill grader that he cannot offer any further intervention, and she will need to see vascular surgery. Her peritoneal dialysis has been functioning well, and blood pressure is well controlled. She denies any further episodes of dizziness and has been able to ambulate. PHYSICAL EXAMINATION: Temperature 97 degrees Fahrenheit, heart rate 70 per minute, respiratory rate 18 per minute, blood pressure 144/66 mm of mercury, and oxygen saturation 93% on room air. Head is atraumatic. Neck is supple, and jugular venous distention (JVD) is minimally elevated. There is no oral thrush or ulcers. Lungs sound clear to auscultation, and heart sounds are regular. Abdomen soft and nontender and distended with peritoneal dialysis fluid. Peritoneal catheter is intact. Extremities have no cyanosis or clubbing. Left foot is wrapped in dressing. Neurologically, she is awake, alert, and oriented times three. Today's labs show WBC count 16.3, hemoglobin 9.8, and hematocrit 31. Sodium 134, potassium 3.5, CO2 of 24, BUN 60, and creatinine 7.42. Calcium 7.9 and phosphorus 5.5. PROBLEMS: 1. End-stage renal disease. The patient remains on peritoneal dialysis, which is working very well and will continue with current prescription of five exchanges per day. We are using only 1.5% solution due to her episode of presyncope prior to admission. 2. Hyponatremia. Sodium level has improved slightly and is likely to improve further. Will continue with fluid restriction of 1500 mL per day and recheck her electrolytes. 3. Hypokalemia. Her potassium level is borderline low, and she will be given potassium chloride 20 mEq daily. Electrolytes will be checked again tomorrow. 4. Hyperphosphatemia. Her Renvela dose was and adjusted to 2400 mg three times a day with meals, and phosphorus level is improving. 5. Infected heel ulcer. The patient remains on Zosyn and vancomycin and is currently afebrile. She will probably require vascular surgery intervention for possible angiogram and angioplasty.
[2018-08-22 22:00] VITALS: BP 145/63
[2018-08-22] MEDS: ASPIRIN 81 MG ENTERIC TAB PO SCH (22:36)
[2018-08-22] MEDS: ATORVASTATIN 20 MG TAB PO SCH (22:36)
[2018-08-22] MEDS: LEVEMIR (INSULIN DETEMIR) 1 UNITS/0.01ML SC SCH (22:36)
[2018-08-23] MEDS: PERCOCET 5MG/325MG TAB PO PRN (00:14)
[2018-08-23 06:00] VITALS: BP 121/59
[2018-08-23] MEDS: (RENVELA) SEVELAMER **CARBONate** 800 MG TAB PO SCH ×4 (08:00→18:42)
[2018-08-23] MEDS: HumaLOG INSULIN (NovoLOG) PER UNIT SC SCH ×4 (08:01→22:09)
[2018-08-23] MEDS: NEPHRO-VIT TAB (NEPHROCAPS) PO SCH (08:52)
[2018-08-23] MEDS: CLOPIDOGREL 75 MG TAB PO SCH (08:52)
[2018-08-23] MEDS: SENOKOT S TAB PO SCH ×2 (08:53→22:08)
[2018-08-23] MEDS: FLUCONAZOLE 100 MG TAB PO SCH (08:53)
[2018-08-23] MEDS: POTASSIUM CHLORIDE 10 MEQ SR TABLET PO SCH (08:54)
[2018-08-23] MEDS: HEPARIN SOD (PORCINE) 5000 UNITS/ML VIAL SC SCH ×2 (08:55→22:08)
[2018-08-23] MEDS: MUPIROCIN 2% OINT 22 GM TUBE TOP SCH (08:55)
--- NOTE | 2018-08-23 09:16 | IPNPDOC ---
Date Seen The patient was seen on 08/23/18. Progress Note SUBJECTIVE: No new complaints. no fever or chills. white count is improved. no c/o pain in left LE. still awaiting vascular surgery evaluation for angiogram and angioplasty for wound healing, and potential debridement. OBJECTIVE: Physical Examination vitals: pls see below General Exam: Positive: Alert, Cooperative, No Acute Distress Eye Exam: Positive: PERRLA, Conjunctiva & lids normal, EOMI; Negative: Sclera icteric ENT Exam: Positive: Atraumatic, Mucous membr. moist/pink, Pharynx Normal Neck Exam: Positive: Supple; Negative: JVD, thyromegaly Chest Exam: Positive: Clear to auscultation, Normal air movement Heart Exam: Positive: Rate Normal, Regular Rhythm, Normal S1, Normal S2; Negative: Murmurs, Rubs Abdomen Exam: Positive: Normal bowel sounds, Soft; Negative: Tenderness, Hepatospenomegaly Extremity Exam: Positive: Normal pulses, left heel ulcer,dry gangrene in left hallux and 2nd toe Negative: Clubbing, Cyanosis, Edema Skin Exam: Positive: Nl turgor and temperature; Negative: Breakdown, Lesion Psych Exam: Positive: Mental status NL, Mood NL, Oriented x 3 LABORATORY DATA, IMAGING STUDIES, MICROBIOLOGY: REVIEWED, PLS SEE BELOW ASSESSMENT AND PLAN: 63-year-old female with ischemic cardiomyopathy with EF of 23% as of [address], coronary artery disease status post CABG, 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 difficile infection, PVD, diabetes mellitus type 2, hyperlipidemia , CVA in the past, anemia of chronic disease, diabetic neuropathy, initially present to the ED around 2 am on 08/20/18 for a blood sugar reading of high a home. Patient had gone to bed at her usual time of around 10 pm with her cycler in place woke up around 2 am feeling uncomfortable, antsy, restless could not go back to sleep. this happened the previous night also. This night she checked her blood sugar due to this vague restless and uncomfortable feeling and found it reading HIGH so came to the ED. In the ED she was managed for hyperglycemia overnight . In the morning around 7 am her sugar was 112 so she was discharged home. She said that she was still not feeling her normal se lf. Was still dizzy and weak and had some trouble to with balance while walking. She was outside the ED getting into the car which her sister was driving when suddenly everything blacked out in front of her and she almost passed out so came back to the ED for reevaluation. Pateint also mentioned that for the past 2 days she has been having some bowel issues. She has been having some abdominal cramps and tenesmus and sensation of not emptying completely so having to go again and again with small . She also says she had seen Dr Truong 4 days ago and he had debrided the left heel ulcer. In the ED pateint was found to have a WBC of 18k and elevated lactate. Her PD fluid was tested and was negative for any peritonitis. Pateint was noted to be anemic to 7.9 down from her baseline of about 10.[address] abdomen pelvis and CT chest are unremarkable, PD fluid clear Had recent debridement done of a chronic heel ulcer which may have thrown a transient shower of bacteria into the blood blood culture have been sent continue empiric antibiotics Zosyn and vancomycin. consulted vascular surgery for revascularization, previously managed by dr. truong, sleeping car service attendant, who has referred pt to vascular surgery for further management. Near syncope unremarkable telemetry due to anemia and hypotension, underlying infection. transfused 2 units of PRBC negative orthostatics. ESRD on PD for 3 years continue PD exchanges as per nephrology Acute on chronic anemia reviewed iron studies transfused 2 units. Left heel ulcer/gangrenous hallux and 2nd toe continue empiric antibiotics Zosyn and vancomycin. consulted vascular surgery for revascularization, podiatry dr. truong. Longstanding history of diabetes. on consistent carbs diet, resumed home meds, insulin sliding scale Hypertension. resumed home meds Coronary artery disease, status post quadruple bypass surgery. Ischemic cardiomyopathy with ejection fraction of 20-25%. History of discitis/ History of osteomyelitis of L5 and S1. History of congestive heart failure. History of Clostridium difficile colitis in the past. Peripheral vascular disease. Hyperlipidemia. History of cardiac arrest during peritoneal dialysis catheter placement. disposition: awaiting vascular surgery evaluation. VS, I&O, 24H, Fishbone Vital Signs/I&O Vital Signs Date Time Temp Pulse Resp B/P (MAP) Pulse Ox O2 Delivery O2 Flow Rate FiO2 08/23/18 06:00 96.4 76 18 121/59 (79) 98 Room Air 08/20/18 13:45 I&O- Last 24 Hours up to 6 AM 08/23/18 06:00 Intake Total 95993 ml Output Total 03492 ml Balance 940 ml Laboratory Data 24H LABS Laboratory Tests 2 08/22/18 11:57: Bedside Glucose (Misc Panel) 213H 08/22/18 17:06: Bedside Glucose (Misc Panel) 193H 08/22/18 22:19: Bedside Glucose (Misc Panel) 230H 08/23/18 05:40: Random Vancomycin Level 19.7 08/23/18 06:12: Bedside Glucose (Misc Panel) 112 Microbiology Microbiology 08/20/18 Blood Culture - Preliminary, Resulted No Growth after 48 hours. All Specime... 08/20/18 Blood Culture - Preliminary, Resulted No Growth after 48 hours. All Specime... 08/20/18 Gram Stain - Final, Complete 08/20/18 Body Fluid Culture - Final, Complete 08/20/18 Wound Culture, Received Pending TREVON BURNHAM MD Aug 23, 2018 08:43
[2018-08-23 09:23] VITALS: BP 138/78
--- NOTE | 2018-08-23 11:46 | IPN ---
DATE OF VISIT: 08/23/2018 Ms. Sesay is seen this morning on her bedside. She has ischemic gangrenous changes in first and second toes of her left foot and also has a chronic ulcer on the left heel which is covered with dressing. She was admitted with presyncope and was found to be severely anemic. She has been transfused and anemia has improved. She also has end-stage renal disease and has been on peritoneal dialysis. In view of her syncopal episode we have been using only 1.5% peritoneal dialysis solution as she was felt to be dehydrated and anemic. She denies any dyspnea or chest pain, however, does have some leg edema more on the left leg than the right. She denies any nausea or vomiting. She had leukocytosis and has been on intravenous antibiotics. Her peritoneal fluid was checked and was negative for peritonitis. It is felt that most of her leukocytosis is due to the left foot gangrenous changes and ulcers. PHYSICAL EXAMINATION: This morning temperature is 97 degrees Fahrenheit, heart rate 72 per minute and respiratory rate 18 per minute. Blood pressure 138/78 mmHg and oxygen saturation 94% on room air. Head is atraumatic. Her face looks mildly edematous. Neck veins are about 78 cm above sternal angle. Heart sounds are regular and lungs clear to auscultation. Abdomen soft, nontender and distended with peritoneal dialysis solution. Her peritoneal dialysis catheter is intact. Extremities have no cyanosis or clubbing. Left leg has 2+ edema and right leg has 1+ edema. She has gangrenous changes in the left big and second toe and an ulcer on the left heel which is covered with dressing. Neurologically she is awake, alert and oriented times three. The patient did not have any new labs today and yesterday's labs were reviewed. PROBLEMS: 1. End-stage renal disease. The patient has been on peritoneal dialysis and we are performing five exchanges per day with 2 liters bath. 2. Hypervolemia and peripheral edema. Her volume status is decompensated now. We have been using 1.5% solution and we will switch her to 2.5% peritoneal dialysis solution for five exchanges today. She should remain on fluid restriction of 1500 mL per day. 3. Anemia. She was transfused and anemia has improved. We will check a CBC tomorrow morning. 4. Hypokalemia. She has been on potassium supplement and her renal profile and CBC will be checked again tomorrow morning. 5. Hypertension. Blood pressure seems to be well controlled on current medications. No changes are being made today. 6. Hyperphosphatemia. I have adjusted her phosphate binders and phosphorus level has been improving gradually. A renal profile is being ordered for tomorrow. 7. Leukocytosis and left foot gangrenous changes. The patient has been on intravenous antibiotics and is waiting for vascular surgery evaluation.
--- NOTE | 2018-08-23 12:45 | HPEPDOC ---
General Date of Admission Aug 20, 2018 at 12:52 Attending Physician: BOBO SINGLETON MD Chief Complaint The patient is a 63-year-old female admitted with a reason for visit Pre Syncope. 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 difficile infection, PVD, diabetes mellitus type 2, hyperlipidemia , CVA in the past, anemia of chronic disease, diabetic neuropathy, initially present to the ED around 2 am on 08/20/18 for a blood sugar reading of high a home. Patient had gone to bed at her usual time of around 10 pm with her cycler in place woke up around 2 am feeling uncomfortable, antsy, restless could not go back to sleep. this happened the previous night also. This night she checked her blood sugar due to this vague restless and uncomfortable feeling and found it reading HIGH so came to the ED. In the ED she was managed for hyperglycemia overnight . In the morning around 7 am her sugar was 112 so she was discharged home. She said that she was still not feeling her normal self. Was still dizzy and weak and had some trouble to with balance while walking. She was outside the ED getting into the car which her sister was driving when suddenly everything blacked out in front of her and she almost passed out so came back to the ED for reevaluation. Pateint also mentioned that for the past 2 days she has been having some bowel issues. She has been having some abdominal cramps and tenesmus and senation of not emptying completely so having to go again and again with small . She also says she had seen Dr Truong 4 days ago and he had debrided the left heel ulcer. Home Medications Scheduled (Ruth-Lei Rx 1 mg) 1 Tab Tab, 1 TAB PO DAILY, (Reported) (Basaglar Kwikpen) 100 Unit/Ml Inj, 34 UNIT SC QHS, (Reported) Aspirin (Aspirin) 81 Mg Tab, 81 MG PO QHS, (Reported) Atorvastatin Calcium (Atorvastatin Calcium) 20 Mg Tab, 20 MG PO QHS, (Reported) Calcitriol (Calcitriol) 0.25 Mcg Cap, 0.5 MCG PO 3XW, (Reported) MON,MON,MON Cetirizine HCl (Cetirizine HCl) 10 Mg Tab, 10 MG PO QHS, (Reported) Cinacalcet Hydrochloride (Sensipar) 30 Mg Tab, 30 MG PO 3XW, (Reported) MON,MON,MON Clopidogrel Bisulfate (Clopidogrel) 75 Mg Tab, 75 MG PO DAILY Ergocalciferol (Vitamin D) 50,000 Unit Cap, 50,000 UNITS PO 1XWK, (Reported) WEDNESDAYS Glipizide (Glipizide Xl) 10 Mg Tab, 10 MG PO BID, (Reported) Metoprolol Succinate (Toprol Xl) 50 Mg Tab, 50 MG PO DAILY, (Reported) Potassium Chloride (K-Tabs) 10 Meq Tab, 20 MEQ PO DAILY, (Reported) Sevelamer Carbonate (Renvela) 800 Mg Tab, 1,600 MG PO WM, (Reported) Scheduled PRN Acetaminophen (Tylenol Extra Strength) 500 Mg Tab, 1,000 MG PO TID PRN for PAIN, (Reported) Docusate Sodium (Colace) 100 Mg Cap, 100 MG PO QHS PRN for CONSTIPATION, (Reported) Mupirocin Calcium (Bactroban) 2 % Cre, 1 APLCT TOP PRN PRN for REDNESS/IRRITATION, (Reported) USES WHEN CHANGING DRESSING Nitroglycerin (Nitroglycerin) 0.4 Mg Sub, 0.4 MG SL NITRO PRN for CHEST PAIN, (Reported) Oxycodone/Acetaminophen (Oxycodone/Acetaminophen 5-325 mg) 1 Tab Tab, 1 TAB PO BID PRN for PAIN, (Reported) Allergies Coded Allergies: Bumetanide (Verified Allergy, Unknown, hives, 12/10/16) Codeine (Verified Allergy, Unknown, hives, 12/10/16) Past Medical History Medical History Ischemic cardiomyopathy with EF of 23% as of [address], coronary artery disease status post CABG, 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 difficile infection, PVD, diabetes mellitus type 2, hyperlipidemia , CVA in the past, anemia of chronic disease, diabetic neuropathy, Secondary hyperparathyroidism, hperphosphatemia Surgical History 1. Coronary artery bypass graft (CABG) for four-vessels in 2010 2. Peritoneal dialysis catheter placement. 3. Perma-Cath placement and removal. 4. Tubal ligation. 5. Cataract surgery both eyes 2016 6. Heart catheterization in 2014 7. AICD placement 2016 8. Left knee repair Family History Significant Family History: No pertinent family hx Social History * Smoker: non-smoker Alcohol: Denies Drugs: denies Recent Travel/Sick Contacts: Denies: Recent travel, Recent sick contacts Review of Systems Constitutional: Reports: Malaise, Weakness, Fatigue; Denies: Chills, Fever, Night Sweats, Weight Loss, Lethargy, Other Eyes: Denies: Pain, Vision change, Conjunctivae inflammation, Eyelid inflammation, Redness, Other ENT: Denies: Head Aches, Ear Pain, Dysphagia, Sinus Congestion, Post Nasal Drip, Sore Throat, Epistaxis, Other Symptoms Skin: Denies: Rash, Lesions, Jaundice, Bruising, Itching, Dry, Breakdown, Nail Changes, Other Pulmonary: Denies: Dyspnea, Cough, Pleuritic Chest Pain, Other Symptoms Cardiovascular: Denies: Chest Pain, Palpitations, Orthopnea, Paroxysmal Noc. Dyspnea, Edema, Lt Headedness, Other Symptoms Gastrointestinal: Reports: Diarrhea, Other Symptoms (sensation of incomplete evauation and needing to go again and again with small outputs. ); Denies: Nausea, Vomiting, Abdominal Pain, Constipation, Melena, Hematochezia Hematologic: Denies: Bruising, Bleeding Excessively Musculoskeletal: Denies: Neck Pain, Back Pain, Joint Pain, Muscle Pain, Spasms Neurological: Reports: Weakness Physical Examination General Exam: Positive: Alert, Cooperative, No Acute Distress Eye Exam: Positive: PERRLA, Conjunctiva & lids normal, EOMI; Negative: Sclera icteric ENT Exam: Positive: Atraumatic, Mucous membr. moist/pink, Pharynx Normal Neck Exam: Positive: Supple; Negative: JVD, thyromegaly Chest Exam: Positive: Clear to auscultation, Normal air movement Heart Exam: Positive: Rate Normal, Regular Rhythm, Normal S1, Normal S2; Negative: Murmurs, Rubs Abdomen Exam: Positive: Normal bowel sounds, Soft; Negative: Tenderness, Hepatospenomegaly Extremity Exam: Positive: Normal pulses, Other (dry gagrene in the right great toes and left and left heel ulcer); Negative: Clubbing, Cyanosis, Edema Skin Exam: Positive: Nl turgor and temperature; Negative: Breakdown, Lesion Psych Exam: Positive: Mental status NL, Mood NL, Oriented x 3 Vital Signs Vital Signs Date Time Temp Pulse Resp B/P (MAP) Pulse Ox O2 Delivery O2 Flow Rate FiO2 08/20/18 23:30 18 Room Air 08/20/18 22:00 97.2 71 116/52 (73) 95 08/20/18 13:45 Laboratory Data Labs 24H Laboratory Tests 2 08/20/18 08:51: Bedside Glucose (Misc Panel) 78L 08/20/18 08:56: Immature Granulocyte % (Auto) 1.2, White Blood Count 18.1H, Red Blood Count 2.66L, Hemoglobin 7.9L, Hematocrit 25.2L, Mean Corpuscular Volume 94.7, Mean Corpuscular Hemoglobin 29.7, Mean Corpuscular Hemoglobin Concent 31.3L, Red Cell Distribution Width 13.6, Platelet Count 271, Neutrophils (%) (Auto) 79.9H, Lymphocytes (%) (Auto) 13.1L, Monocytes (%) (Auto) 5.4H, Eosinophils (%) (Auto) 0.0, Basophils (%) (Auto) 0.4, Neutrophils # (Auto) 14.5H, Lymphocytes # (Auto) 2.4, Monocytes # (Auto) 1.0H, Eosinophils # (Auto) 0.0, Basophils # (Auto) 0.1, Nucleated Red Blood Cells % (auto) 0.2H, Prothrombin Time 13.3, Prothromb Time International Ratio 1.00, Activated Partial Thromboplast Time 29.2, Anion Gap 12, Glomerular Filtration Rate 5.7L, Lactic Acid Level 2.2*H, Calcium Level 8.3L, Phosphorus Level 5.6H, Aspartate Amino Transf (AST/SGOT) 14, Alanine Aminotransferase (ALT/SGPT) 13, Alkaline Phosphatase 122H, Total Bilirubin 0.3, Direct Bilirubin 0.1, Total Creatine Kinase 51, Creatine Kinase MB 4.0H, Creatine Kinase MB Relative Index 7.25H, Troponin I 0.76H, RO-Wks-Y-Type Natriuretic Peptide > 361178A, Total Protein 6.5, Albumin 2.0L, Albumin/Globulin Ratio 0.44L, Lipase 98, Thyroid Stimulating Hormone (TSH) 5.110H, Free Thyroxine 1.03, Thyroxine (T4) 6.9, Influenza Type A (RT-PCR) NEGATIVE, Influenza Type B (RT-PCR) NEGATIVE 08/20/18 09:53: Bedside Glucose (Misc Panel) 146H 08/20/18 09:55: Prothrombin Time 13.9, Prothromb Time International Ratio 1.06, Activated Partial Thromboplast Time 28.9, Body Fluid WBC (Auto) 3, Body Fluid RBC (Auto) < 2, Peritoneal Fluid Source PERITONEAL, Peritoneal Fluid Color COLORLESS, Peritoneal Fluid Appearance CLEAR 08/20/18 13:19: Lactic Acid Followup at 4 Hours 3.0*H 08/20/18 17:08: Bedside Glucose (Misc Panel) 224H 08/20/18 20:41: Bedside Glucose (Misc Panel) 267H CBC/BMP Laboratory Tests 08/20/18 08:56 Red Blood Count 2.66 L, Mean Corpuscular Volume 94.7, Mean Corpuscular Hemoglobin 29.7, Mean Corpuscular Hemoglobin Concent 31.3 L, Red Cell Distribution Width 13.6, Neutrophils (%) (Auto) 79.9 H, Lymphocytes (%) (Auto) 13.1 L, Monocytes (%) (Auto) 5.4 H, Eosinophils (%) (Auto) 0.0, Basophils (%) (Auto) 0.4, Neutrophils # (Auto) 14.5 H, Lymphocytes # (Auto) 2.4, Monocytes # (Auto) 1.0 H, Eosinophils # (Auto) 0.0, Basophils # (Auto) 0.1 Microbiology Microbiology 08/20/18 Blood Culture, Received Pending 08/20/18 Blood Culture, Received Pending 08/20/18 Gram Stain - Final, Resulted 08/20/18 Body Fluid Culture, Resulted Pending 08/20/18 Wound Culture, Received Pending Assessment/Plan 63-year-old female with ischemic cardiomyopathy with EF of 23% as of [address], coronary artery disease status post CABG, 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 difficile infection, PVD, diabetes mellitus type 2, hyperlipidemia , CVA in the past, anemia of chronic disease, diabetic neuropathy, initially present to the ED around 2 am on 08/20/18 for a blood sugar reading of high a home. Patient had gone to bed at her usual time of around 10 pm with her cycler in place woke up around 2 am feeling uncomfortable, antsy, restless could not go back to sleep. this happened the previous night also. This night she checked her blood sugar due to this vague restless and uncomfortable feeling and found it reading HIGH so came to the ED. In the ED she was managed for hyperglycemia overnight . In the morning around 7 am her sugar was 112 so she was discharged home. She said that she was still not feeling her normal self. Was still dizzy and weak and had some trouble to with balance while walking. She was outside the ED getting into the car which her sister was driving when suddenly everything blacked out in front of her and she almost passed out so came back to the ED for reevaluation. Pateint also mentioned that for the past 2 days she has been having some bowel issues. She has been having some abdominal cramps and tenesmus and sensation of not emptying completely so having to go again and again with small . She also says she had seen Dr Truong 4 days ago and he had debrided the left heel ulcer. In the ED pateint was found to have a WBC of 18k and elevated lactate. Her PD fluid was tested and was negative for any peritonitis. Pateint was noted to be anemic to 7.9 down from her baseline of about 10.0 Presyncope will monitor on telemetry for any cardiac arrhythmias. Does have AICD in place with ischemic cardiomyopathy. could be due to anemia and hypotension , ?underlying infection. will transfuse 2 units of PRBC hold metoprolol. check orthostatics. Rule out infection In view of leucocytosis and lactacidosis will need to rule out infection, CT abdomen pelvis and CT chest are unremarkable, PD fluid clear Had recent debridement done of a chronic heel ulcer which may have thrown a transient shower of bacteria into the blood blood culture have been sent continue empiric antibiotics Zosyn and vancomycin. Left Heel ulcer and right hallus dry gangrene wound culture sent from left heel Had appointment with DR Pratt for the hallus gangrene as outpatient . As patient was in ED was seen by his PA. ESRD on PD for 3 years with hyperphosphatemia and secondary hyperparathyroidism continue PD exchanges as per nephrology continue sevelamer, renavite. Hypokalemia supplement K and continue home dose of potassium. Acute on chronic anemia will check iron studies transfuse 2 units. Diabetes with diabetic neuropathy continue levemir and lispro Ischemic cardiomyopathy with EF of 23% in 2017 with CHF Has AICD in place patient makes minimal urine fluid management through dialysis Appears Euvolemic at present CAD with CABG in 2010 continue home meds. ASA, Plavix, Statin History of discitis/ History of osteomyelitis of L5 and S1 in 2016 still has some back pain History of Clostridium difficile colitis in the past. Peripheral vascular disease. Has appointment With Dr Pratt. was seen by his PA in the ED continue ASA and Plavix Hyperlipidemia. continue statin Plan / VTE VTE Prophylaxis Ordered?: Yes BOBO SINGLETON MD Aug 21, 2018 00:34
[2018-08-23] MEDS: PIPERACILLIN/TAZOBACTAM SOD 2.25 GM in D5W MINI-BAG PLUS 50 ML IV SCH ×2 (13:56→23:16)
[2018-08-23 14:00] VITALS: BP 141/74
--- NOTE | 2018-08-23 14:07 | REP ---
No other lower extremity arterial Doppler ultrasound: History: Left heel and foot ulcers. Findings: Ankle brachial indices could not be obtained on either side due to noncompressible vessels. Blood pressure in the arms was quite high, greater than 280 mm mercury. Exam quality and extent is significantly limited due to extensive shadowing calcific plaquing. Multiple levels of arterial stenoses are seen bilaterally. The posterior tibial arteries proximally show no observable flow on either side. Occlusion versus extensive shadowing from calcific plaquing. Biphasic and monophasic flow are seen in the right lower extremity. Monophasic flow is seen in the tibioperoneal trunk and the distal anterior tibial artery on the left. Velocity chart right lower extremity arteries: Right CF A 44 cm/S Profunda of 44 Proximal SFA 60 Mid SFA 104 Distal SFA 46 Popliteal 38 Proximal AT A not seen. Tibioperoneal trunk 86 Proximal [employer] not seen. Distal [employer] question or occlusion. Distal AT A 23. Cm/S Velocity chart left lower extremity arteries: CF A 69 cm/S Profunda 43 Proximal SFA 64 Mid SFA 67 Distal SFA 17 Popliteal 37 Proximal [employer] not seen. Tibioperoneal trunk 29 Proximal [employer] not seen. Distal [employer] not seen. Distal AT A 23. Cm/S. Electronically Signed by Royer Griffin MD 08/23/2018 01:58 P
[2018-08-23 22:00] VITALS: BP 132/60
[2018-08-23] MEDS: ASPIRIN 81 MG ENTERIC TAB PO SCH (22:08)
[2018-08-23] MEDS: ATORVASTATIN 20 MG TAB PO SCH (22:08)
[2018-08-23] MEDS: LEVEMIR (INSULIN DETEMIR) 1 UNITS/0.01ML SC SCH (22:09)
[2018-08-24] VITALS (11 sets, daily range): BP systolic 122–157; BP diastolic 57–82
[2018-08-24 06:10] LABS: HEMOGLOBIN 9.4 g/dl (12.0-15.5); MEAN CORPUSCULAR HEMOGLOBIN 29.5 pg (27.0-33.0); MEAN CORPUSCULAR HGB CONC 32.4 g/dl (32.0-36.5); MEAN CORPUSCULAR VOLUME 90.9 fl (80.0-96.0); PLATELET COUNT, AUTOMATED 207 10^3/uL (150-450); RED BLOOD COUNT 3.19 10^6/uL (4.00-5.40); WHITE BLOOD COUNT 14.9 10^3/uL (4.0-10.0)
[2018-08-24 06:40] LABS: ALBUMIN 1.3 GM/DL (3.2-5.2); CREATININE FOR GFR 6.71 MG/DL (0.55-1.30); GLOMERULAR FILTRATION RATE 6.6 (>45); POTASSIUM SERUM 3.8 MEQ/L (3.5-5.1); VANCOMYCIN RANDOM 20.8 UG/ML
--- NOTE | 2018-08-24 07:14 | PHACANCOPD ---
PHARMACY VANCOMYCIN DOSING Pt Demographics Demographics Patient Age:63 , Weight:84.090 , Gender: female Adjusted Body Weight Vancomycin Vancomycin indication: SSSI Vancomycin Target Ranges: 15-20 mcg/ml Vancomycin Load Y/N: No Load Dose Date Time Vancomycin Load Dose: Date: Time: Vancomycin Dose Date: 08/20/18. Current Vancomycin Dose: [VANCO 1GM IV x1 @12:40] Intermittent Dosing?: Yes Labs Micro Microbiology 08/20/18 Blood Culture - Preliminary, Resulted No Growth after 72 hours. All specime... 08/20/18 Blood Culture - Preliminary, Resulted No Growth after 72 hours. All specime... 08/20/18 Gram Stain - Final, Complete 08/20/18 Body Fluid Culture - Final, Complete 08/20/18 Wound Culture - Final, Complete Klebsiella Pneumoniae Pseudomonas Aeruginosa Creatinine Clearance Date:08/20/18. Creatinine Clearance: [<10 ml/min]. Assessment and Plan Maintaining Current Dose?: No Reason for dose change: Other Pharmacist Note Pharmacist Note 08/24/18: Day #5 IV vancomycin tx. Random level this AM resulted at 20.8mcg/ml. Random level yesterday resulted at 19.7mcg/ml. The last dose of vancomycin was a 1g dose given 08/21/18. We will continue to hold doses and follow-up on AM random levels, re-dosing when level is therapeutic. 08/22/18: Day #3 IV vancomycin tx. Random level this AM resulted at 22.4mcg/ml after 2 doses. We will hold any further doses today and follow-up on tomorrow's random level for further dosing. 08/21/18: Day #2 IV vancomycin tx. Random level this AM resulted at 14mcg/ml after 1 dose. We will re-dose with another 1g dose of vancomycin today for the treatment of a left heal ulcer. A random level has been scheduled to be drawn tomorrow with AM labs, and we will continue intermittent dosing based on these r andom levels while the patient is on CAPD. We will continue to monitor and schedule further doses accordingly. Date: 08/20/18. PharmD note: Hx of HOME PD. VANCO 1GM IV GIVEN x1 DOSE DURING TO NOON OUR TODAY WE WILL SCHEDULE DAILY VANCO RANDOM LEVELS x7 DAYS VANCO 1GM IV x1 DOSES INTERMITTENTLY WHEN RANDOM LEVELS BETWEEN 15-20 mcg/ml BRENON,JONNY PHARMACY Aug 24, 2018 07:13
[2018-08-24] MEDS: HumaLOG INSULIN (NovoLOG) PER UNIT SC SCH ×4 (07:30→20:52)
[2018-08-24] MEDS: SENOKOT S TAB PO SCH ×2 (08:26→21:30)
[2018-08-24] MEDS: NEPHRO-VIT TAB (NEPHROCAPS) PO SCH (08:27)
[2018-08-24] MEDS: (RENVELA) SEVELAMER **CARBONate** 800 MG TAB PO SCH ×3 (08:27→17:59)
[2018-08-24] MEDS: FLUCONAZOLE 100 MG TAB PO SCH (08:27)
[2018-08-24] MEDS: HEPARIN SOD (PORCINE) 5000 UNITS/ML VIAL SC SCH ×3 (08:27→21:30)
[2018-08-24] MEDS: POTASSIUM CHLORIDE 10 MEQ SR TABLET PO SCH (08:27)
[2018-08-24] MEDS: CLOPIDOGREL 75 MG TAB PO SCH (08:27)
[2018-08-24] MEDS: MUPIROCIN 2% OINT 22 GM TUBE TOP SCH (08:28)
[2018-08-24] MEDS ORDERED: FLEET ENEMA PR PRN (09:30)
[2018-08-24] MEDS ORDERED: BISACODYL 10 MG SUPP PR ONE (09:30)
[2018-08-24] MEDS: LevoFLOXacin 500 MG TABLET PO SCH (10:44)
--- NOTE | 2018-08-24 11:12 | IPNPDOC ---
Text Note Date of Service The patient was seen on 08/24/18. NOTE Pt has no new complaint. Physical remain unchanged. BLE arterial US with limited quality d/t extensive shadowing calcific plaquing. Multiple levels of arterial stenoses are seen bilaterally. Both proximal PTAs shows no observable flow on either side. Occlusion versus extensive shadowing from calcific plaquing. Biphasic and monophasic flow are seen in the RLE. Monophasic flow is seen in the TPT and the distal JADIEL on the left. Pt has ESRD on PD daily. A/P: LLE angiogram with angioplasty +/-stent this evening NPO 8hrs prior to the procedure. VS,Fishbone, I+O VS, Fishbone, I+O Laboratory Tests 08/24/18 05:39 Red Blood Count 3.19 L, Mean Corpuscular Volume 90.9, Mean Corpuscular Hemoglobin 29.5, Mean Corpuscular Hemoglobin Concent 32.4, Red Cell Distribution Width 14.7 H, Anion Gap 11 Vital Signs Date Time Temp Pulse Resp B/P (MAP) Pulse Ox O2 Delivery O2 Flow Rate FiO2 08/24/18 06:00 98.1 77 17 122/57 (78) 97 Room Air 08/20/18 13:45 I&O- Last 24 Hours up to 6 AM 08/24/18 06:00 Intake Total 72902 ml Output Total 92142 ml Balance 1210 ml LAINEY RONDON PA-C Aug 24, 2018 11:12
--- NOTE | 2018-08-24 11:36 | IPNPDOC ---
Date Seen The patient was seen on 08/24/18. Progress Note SUBJECTIVE: No new issues per patient. afebrile overnight. S/P zosyn and vanco. Foot cx: Klebsiella and pseudomonas. on po levaquin renally dosed. s/p vascular us : occlusion. planned for angiogram and possible angioplasty by vascular surgery. no other complaints. "I would prefer to continue antibiotics for several days,"per the patient. No discharge plans over the weekend. potential discharge or monday pending vascular surgery recommendations. OBJECTIVE: Physical Examination vitals: pls see below General Exam: Positive: Alert, Cooperative, No Acute Distress Eye Exam: Positive: PERRLA, Conjunctiva & lids normal, EOMI; Negative: Sclera icteric ENT Exam: Positive: Atraumatic, Mucous membr. moist/pink, Pharynx Normal Neck Exam: Positive: Supple; Negative: JVD, thyromegaly Chest Exam: Positive: Clear to auscultation, Normal air movement Heart Exam: Positive: Rate Normal, Regular Rhythm, Normal S1, Normal S2; Negative: Murmurs, Rubs Abdomen Exam: Positive: Normal bowel sounds, Soft; Negative: Tenderness, Hepatospenomegaly Extremity Exam: Positive: Normal pulses, left heel ulcer,dry gangrene in left hallux and 2nd toe Negative: Clubbing, Cyanosis, Edema Skin Exam: Positive: Nl turgor and temperature; Negative: Breakdown, Lesion Psych Exam: Positive: Mental status NL, Mood NL, Oriented x 3 LABORATORY DATA, IMAGING STUDIES, MICROBIOLOGY: REVIEWED, PLS SEE BELOW arterial dopplers 08/23/18: Ankle brachial indices could not be obtained on either side due to noncompressible vessels. Blood pressure in the arms was quite high, greater than 280 mm mercury. Exam quality and extent is significantly limited due to extensive shadowing calcific plaquing. Multiple levels of arterial stenoses are seen bilaterally. The posterior tibial arteries proximally show no observable flow on either side. Occlusion versus extensive shadowing from calcific plaquing. Biphasic and monophasic flow are seen in the right lower extremity. Monophasic flow is seen in the tibioperoneal trunk and the distal anterior tibial artery on the left. ASSESSMENT AND PLAN: 63-year-old female with ischemic cardiomyopathy with EF of 23% as of [address], coronary artery disease status post CABG, 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 difficile infection, PVD, diabetes mellitus type 2, hyperlipidemia , CVA in the past, anemia of chronic disease, diabetic neuropa thy, initially present to the ED around 2 am on 08/20/18 for a blood sugar reading of high a home. Patient had gone to bed at her usual time of around 10 pm with her cycler in place woke up around 2 am feeling uncomfortable, antsy, restless could not go back to sleep. this happened the previous night also. This night she checked her blood sugar due to this vague restless and uncomfortable feeling and found it reading HIGH so came to the ED. In the ED she was managed for hyperglycemia overnight . In the morning around 7 am her sugar was 112 so she was discharged home. She said that she was still not feeling her normal self. Was still dizzy and weak and had some trouble to with balance while wa lking. She was outside the ED getting into the car which her sister was driving when suddenly everything blacked out in front of her and she almost passed out so came back to the ED for reevaluation. Pateint also mentioned that for the past 2 days she has been having some bowel issues. She has been having some abdominal cramps and tenesmus and sensation of not emptying completely so having to go again and again with small . She also says she had seen Dr Truong 4 days ago and he had debrided the left heel ulcer. In the ED pateint was found to have a WBC of 18k and elevated lactate. Her PD fluid was tested and was negative for any peritonitis. Mareint was noted to be anemic to 7.9 down from her baseline of about 10.[address] abdomen pelvis and CT chest are unremarkable, PD fluid clear Had recent debridement done of a chronic heel ulcer which may have thrown a tra nsient shower of bacteria into the blood blood culture have been sent s/p Zosyn and vancomycin. consulted vascular surgery for revascularization, previously managed by dr. truong, rheostat assembler, who has referred pt to vascular surgery for further management. Near syncope unremarkable telemetry due to anemia and hypotension, underlying infection. transfused 2 units of PRBC negative orthostatics. ESRD on PD for 3 years continue PD exchanges as per nephrology Acute on chronic anemia reviewed iron studies transfused 2 units. Infected Left heel ulcer/gangrenous hallux and 2nd toe s/pZosyn and vancomycin. consulted vascular surgery for revascularization. angioplasty with stent placement planned for 08/24/18. npo for 8hrs. on po levaquin renally dosed 08/24/18 due to foot ulcer cx: klebsiella and pseudomonas. Longstanding history of diabetes. on consistent carbs diet, resumed home meds, insulin sliding scale Hypertension. resumed home meds Coronary artery disease, status post quadruple bypass surgery. Ischemic cardiomyopathy with ejection fraction of 20-25%. History of discitis/ History of osteomyelitis of L5 and S1. History of congestive heart failure. History of Clostridium difficile colitis in the past. Peripheral vascular disease. angioplasty with stent planned for 08/24/18. npo for 8hrs. managed by vascular surgery Hyperlipidemia. History of cardiac arrest during peritoneal dialysis catheter placement. disposition: awaiting stent and angioplasty to left LE. keep npo for 8hrs prior to angioplasty. VS, I&O, 24H, Fishbone Vital Signs/I&O Vital Signs Date Time Temp Pulse Resp B/P (MAP) Pulse Ox O2 Delivery O2 Flow Rate FiO2 08/24/18 06:00 98.1 77 17 122/57 (78) 97 Room Air 08/20/18 13:45 I&O- Last 24 Hours up to 6 AM 08/24/18 06:00 Intake Total 47579 ml Output Total 49588 ml Balance 1210 ml Laboratory Data 24H LABS Laboratory Tests 2 08/23/18 11:23: Bedside Glucose (Misc Panel) 77L 08/24/18 05:39: Nucleated Red Blood Cells % (auto) 0.1H, Blood Urea Nitrogen 55H, Creatinine 6.71H, Sodium Level 134L, Potassium Level 3.8, Chloride Level 96L, Carbon Dioxide Level 27, Anion Gap 11, Glomerular Filtration Rate 6.6L, Calcium Level 8.0L, Phosphorus Level 5.0H, Albumin 1.3#L, Random Vancomycin Level 20.8 CBC/BMP Laboratory Tests 08/24/18 05:39 Red Blood Count 3.19 L, Mean Corpuscular Volume 90.9, Mean Corpuscular Hemoglobin 29.5, Mean Corpuscular Hemoglobin Concent 32.4, Red Cell Distribution Width 14.7 H, Anion Gap 11 Microbiology Microbiology 08/20/18 Blood Culture - Preliminary, Resulted No Growth after 72 hours. All specime... 08/20/18 Blood Culture - Preliminary, Resulted No Growth after 72 hours. All specime... 08/20/18 Gram Stain - Final, Complete 08/20/18 Body Fluid Culture - Final, Complete 08/20/18 Wound Culture - Final, Complete Klebsiella Pneumoniae Pseudomonas Aeruginosa TREVON BURNHAM MD Aug 24, 2018 10:36
[2018-08-24] MEDS ORDERED: LevoFLOXacin 250 MG TABLET PO ONE (12:00)
[2018-08-24] MEDS ORDERED: ISOVUE-300 61% 50ML VIAL (Q9967) As Ordered ONE (13:50)
[2018-08-24] MEDS ORDERED: LIDOCAINE 2% MDV 20 ML VIAL As Ordered ONE (13:51)
[2018-08-24] MEDS ORDERED: fentaNYL 100 MCG/2 ML INJECTION (J3010) As Ordered ONE (14:07)
[2018-08-24] MEDS ORDERED: MIDAZOLAM INJ 2 MG/2 ML VIAL (J2250) As Ordered ONE (14:07)
[2018-08-24] MEDS ORDERED: HEPARIN 1,000 UNITS/ML 10ML VIAL (FOR RADIOLOGY& DIALYSIS ONLY) As Ordered ONE (14:07)
[2018-08-24] MEDS: BISACODYL 10 MG SUPP PR SCH (20:53)
[2018-08-24] MEDS: ATORVASTATIN 20 MG TAB PO SCH (21:30)
[2018-08-24] MEDS: LEVEMIR (INSULIN DETEMIR) 1 UNITS/0.01ML SC SCH (21:31)
[2018-08-24] MEDS: ASPIRIN 81 MG ENTERIC TAB PO SCH (21:38)
[2018-08-24] MEDS: PERCOCET 5MG/325MG TAB PO PRN (23:48)
--- NOTE | 2018-08-25 00:07 | IPN ---
DATE: 08/24/2018 SUBJECTIVE: The patient was seen and examined at the bedside today, morning. The patient is afebrile, hemodynamically stable. She is getting good ultrafiltration with 2.5% dextrose dialysate. She is growing two organisms from the foot wound. Antibiotics have been changed to Levaquin by the primary team. She denies any active complaints at this point. OBJECTIVE: VITAL SIGNS: Temperature is 98.1 degrees Fahrenheit, blood pressure 122/57, pulse is 77, respiratory rate of 17, saturating 97% on room air. INTAKE/OUTPUT: Urine output is not recorded. Output with the peritoneal dialysate is 6.7 liters so far. Weight on the bed scale is not available. PHYSICAL EXAMINATION: GENERAL: The patient is awake, alert, oriented times three, laying in bed, no apparent distress. HEAD AND NECK EXAM: Extraocular muscles intact. Pupils equally round and reactive to light. Mucous membranes are moist. Neck is supple. There is no jugular venous distention (JVD). CARDIOVASCULAR: S1, S2. 1+ edema of the bilateral lower extremities. RESPIRATORY: Chest is clear to auscultation bilaterally. Bilateral equal air entry. No rales or rhonchi. ABDOMEN: Abdomen is soft. Right lower quadrant peritoneal dialysis (PD) catheter is noted. MUSCULOSKELETAL: The patient has a left 1st and 2nd toe gangrene and a left foot heel also has a large eschar and has a black discoloration. CENTRAL NERVOUS SYSTEM: No focal deficit. Power is 5/5 in all extremities. PSYCHIATRIC: Normal mood and affect. LAB REVIEW: CBC showed a WBC of 14.9, hemoglobin 9.4, platelets are 207. BMP showed sodium 134, potassium 3.8, chloride 96, bicarbonate 27, BUN 55, creatinine is 6.7, calcium is 8, phosphorus is 5. Vancomycin level is 20.8. Microbiology: Left foot wound culture sent on 08/20/2018 is growing Klebsiella pneumoniae and Pseudomonas aeruginosa. CURRENT INPATIENT MEDICATIONS: The patient's medications were all reviewed by me. Zosyn and vancomycin have been stopped. The patient has been started on oral Levaquin 750 mg today followed by 500 mg every 48 hours. ASSESSMENT AND PLAN: 1. End-stage renal disease, on peritoneal dialysis. Patient is tolerating the peritoneal dialysis regimen, five manual exchanges, two liters each. 2. Lower extremity edema in the setting of end-stage renal disease. Her peritoneal dialysate fluid was changed to 2.5% dextrose,two liters, five manual exchanges, and so far she is in 600 mL negative fluid balance. 3. Left foot gangrene. Culture is growing two organisms. Patient's antibiotics have already been changed to Levaquin. She is going to have an angiogram by vascular surgery done today in the afternoon. 4. Anemia in end-stage renal disease. Hemoglobin is 9.4, which is still suboptimal. I would give her a dose of Aranesp 100 mcg subcu tomorrow morning. 5. Hypertension with end-stage renal disease. Blood pressure is acceptable. Volume status management would also help improve blood pressure. She is currently not on any antihypertensive. 6. Chronic kidney disease mineral bone disease. Latest phosphorus level is 5, which is improving. Continue current dose of Renvela 2.4 grams with meals. 7. Diabetes mellitus, type 2, insulin dependent. The patient's blood glucoses are better controlled at this point. She is currently on insulin Levemir 20 units daily and insulin sliding scale. [facility]
[2018-08-25 06:00] VITALS: BP 139/63
[2018-08-25] MEDS: HumaLOG INSULIN (NovoLOG) PER UNIT SC SCH ×4 (07:30→20:41)
[2018-08-25] MEDS: (RENVELA) SEVELAMER **CARBONate** 800 MG TAB PO SCH ×3 (08:00→18:15)
[2018-08-25] MEDS ORDERED: DARBEPOETIN 100 MCG/0.5 ML *NON-DIALYSIS* SYRINGE (J0881) SQ SCH (09:00)
[2018-08-25] MEDS: HEPARIN SOD (PORCINE) 5000 UNITS/ML VIAL SC SCH ×2 (09:00→21:31)
[2018-08-25] MEDS: BISACODYL 10 MG SUPP PR SCH ×2 (09:00→21:31)
[2018-08-25 09:30] LABS: BASO % 0.2 % (0.0-1.0); EOS % 0.1 % (0.0-3.0); HEMATOCRIT 29.3 % (36.0-47.0); LYMPH # 2.1 10^3/uL (1.5-4.5); LYMPH % 16.3 % (24.0-44.0); MEAN CORPUSCULAR HEMOGLOBIN 28.9 pg (27.0-33.0); MEAN CORPUSCULAR HGB CONC 30.7 g/dl (32.0-36.5); MEAN CORPUSCULAR VOLUME 94.2 fl (80.0-96.0); MONO # 0.6 10^3/uL (0.0-0.8); MONO % 4.7 % (0.0-5.0); NEUTROPHILS % 77.9 % (36.0-66.0); PLATELET COUNT, AUTOMATED 196 10^3/uL (150-450); RED BLOOD COUNT 3.11 10^6/uL (4.00-5.40); WHITE BLOOD COUNT 12.9 10^3/uL (4.0-10.0)
[2018-08-25 09:59] LABS: ALBUMIN 1.6 GM/DL (3.2-5.2); CALCIUM LEVEL 8.1 MG/DL (8.8-10.2); CREATININE FOR GFR 6.44 MG/DL (0.55-1.30); PHOSPHORUS LEVEL 5.3 MG/DL (2.5-4.9)
--- NOTE | 2018-08-25 10:07 | IPNPDOC ---
Date Seen The patient was seen on 08/25/18. Progress Note SUBJECTIVE: per patient, no stent or angioplasty was done yesterday. No fever. on oral levaquin for klebsiella and pseudomonas. labs unchanged. no other significant complaints. denies pain in the left LE. OBJECTIVE: Physical Examination vitals: pls see below General Exam: Positive: Alert, Cooperative, No Acute Distress Eye Exam: Positive: PERRLA, Conjunctiva & lids normal, EOMI; Negative: Sclera icteric ENT Exam: Positive: Atraumatic, Mucous membr. moist/pink, Pharynx Normal Neck Exam: Positive: Supple; Negative: JVD, thyromegaly Chest Exam: Positive: Clear to auscultation, Normal air movement Heart Exam: Positive: Rate Normal, Regular Rhythm, Normal S1, Normal S2; Negative: Murmurs, Rubs Abdomen Exam: Positive: Normal bowel sounds, Soft; Negative: Tenderness, Hepatospenomegaly Extremity Exam: Positive: Normal pulses, left heel ulcer,dry gangrene in left hallux and 2nd toe Negative: Clubbing, Cyanosis, Edema Skin Exam: Positive: Nl turgor and temperature; Negative: Breakdown, Lesion Psych Exam: Positive: Mental status NL, Mood NL, Oriented x 3 LABORATORY DATA, IMAGING STUDIES, MICROBIOLOGY: REVIEWED, PLS SEE BELOW arterial dopplers 08/23/18: Ankle brachial indices could not be obtained on either side due to noncompressible vessels. Blood pressure in the arms was quite high, greater than 280 mm mercury. Exam quality and extent is significantly limited due to extensive shadowing calcific plaquing. Multiple levels of arterial stenoses are seen bilaterally. The posterior tibial arteries proximally show no observable flow on either side. Occlusion versus extensive shadowing from calcific plaquing. Biphasic and monophasic flow are seen in the right lower extremity. Monophasic flow is seen in the tibioperoneal trunk and the distal anterior tibial artery on the left. ASSESSMENT AND PLAN: 63-year-old female with ischemic cardiomyopathy with EF of 23% as of [address], coronary artery disease status post CABG, 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 difficile infection, PVD, diabetes mellitus type 2, hyperlipidemia , CVA in the past, anemia of chronic disease, diabetic neuropathy, initially present to the ED around 2 am on 08/20/18 for a blood sugar reading of high a home. Patient had gone to bed at her usual time of around 10 pm with her cycler in place woke up around 2 am feeling uncomfortable, antsy, restless could not go back to sleep. this happened the previous night also. This night she checked her blood sugar due to this vague restless and uncomfortable feeling and found it reading HIGH so came to the ED. In the ED she was managed for hyperglycemia overnight . In the morning around 7 am her sugar was 112 so she was discharged home. She said that she was still not feeling her normal self. Was still dizzy and weak and had some trouble to with balance while walking. She was outside the ED getting into the car which her sister was driving when suddenly everything blacked out in front of her and she almost passed out so came back to the ED for reevaluation. Pateint also mentioned that for the past 2 days she has been having some bowel issues. She has been having some abdominal cramps and tenesmus and sensation of not emptying completely so having to go again and again with small . She also says she had seen Dr Truong 4 days ago and he had debrided the left heel ulcer. In the ED pateint was found to have a WBC of 18k and elevated lactate. Her PD fluid was tested and was negative for any peritonitis. Pateint was noted to be anemic to 7.9 down from her baseline of about 10.[address] abdomen pelvis and CT chest are unremarkable, PD fluid clear Had recent debridement done of a chronic heel ulcer which may have thrown a transient shower of bacteria into the blood blood culture have been sent s/p Zosyn and vancomycin. consulted vascular surgery for revascularization, previously managed by dr. truong, computer meteorologist, who has referred pt to vascular surgery for further management. Near syncope unremarkable telemetry due to anemia and hypotension, underlying infection. transfused 2 units of PRBC negative orthostatics. ESRD on PD for 3 years continue PD exchanges as per nephrology Acute on chronic anemia reviewed iron studies transfused 2 units. Infected Left heel ulcer/gangrenous hallux and 2nd toe s/pZosyn and vancomycin. consulted vascular surgery for revascularization. angioplasty with stent placement per vascular surgery on po levaquin renally dosed 08/24/18 due to foot ulcer cx: klebsiella and pseudomonas. Longstanding history of diabetes. on consistent carbs diet, resumed home meds, insulin sliding scale Hypertension. resumed home meds Coronary artery disease, status post quadruple bypass surgery. Ischemic cardiomyopathy with ejection fraction of 20-25%. History of discitis/ History of osteomyelitis of L5 and S1. History of congestive heart failure. History of Clostridium difficile colitis in the past. Peripheral vascular disease. angioplasty with stent planned for 08/24/18. npo for 8hrs. managed by vascular surgery Hyperlipidemia. History of cardiac arrest during peritoneal dialysis catheter placement. disposition: defer to vascular surgery VS, I&O, 24H, Fishbone Vital Signs/I&O Vital Signs Date Time Temp Pulse Resp B/P (MAP) Pulse Ox O2 Delivery O2 Flow Rate FiO2 08/25/18 06:00 97.0 71 18 139/63 (88) 97 Room Air 08/20/18 13:45 I&O- Last 24 Hours up to 6 AM 08/25/18 06:00 Intake Total 6300 ml Output Total 7050 ml Balance -750 ml Laboratory Data 24H LABS Laboratory Tests 2 08/24/18 16:54: Bedside Glucose (Misc Panel) 126H 08/25/18 09:17: Blood Urea Nitrogen 54H, Creatinine 6.44H, Sodium Level 136, Potassium Level 4.0, Chloride Level 97L, Carbon Dioxide Level 28, Anion Gap 11, Glomerular Filtration Rate 7.0L, Calcium Level 8.1L, Phosphorus Level 5.3H, Albumin 1.6#L 08/25/18 09:18: Immature Granulocyte % (Auto) 0.8, White Blood Count 12.9H, Red Blood Count 3.11L, Hemoglobin 9.0L, Hematocrit 29.3L, Mean Corpuscular Volume 94.2, Mean Corpuscular Hemoglobin 28.9, Mean Corpuscular Hemoglobin Concent 30.7L, Red Cell Distribution Width 14.8H, Platelet Count 196, Neutrophils (%) (Auto) 77.9H, Lymphocytes (%) (Auto) 16.3L, Monocytes (%) (Auto) 4.7, Eosinophils (%) (Auto) 0.1, Basophils (%) (Auto) 0.2, Neutrophils # (Auto) 10.0H, Lymphocytes # (Auto) 2.1, Monocytes # (Auto) 0.6, Eosinophils # (Auto) 0.0, Basophils # (Auto) 0.0, Nucleated Red Blood Cells % (auto) 0.0 CBC/BMP Laboratory Tests 08/25/18 09:17 Anion Gap 11 08/25/18 09:18 Red Blood Count 3.11 L, Mean Corpuscular Volume 94.2, Mean Corpuscular Hemoglobin 28.9, Mean Corpuscular Hemoglobin Concent 30.7 L, Red Cell Distribution Width 14.8 H, Neutrophils (%) (Auto) 77.9 H, Lymphocytes (%) (Auto) 16.3 L, Monocytes (%) (Auto) 4.7, Eosinophils (%) (Auto) 0.1, Basophils (%) (Auto) 0.2, Neutrophils # (Auto) 10.0 H, Lymphocytes # (Auto) 2.1, Monocytes # (Auto) 0.6, Eosinophils # (Auto) 0.0, Basophils # (Auto) 0.0 Microbiology Microbiology 08/20/18 Blood Culture - Final, Complete NO GROWTH AFTER 5 DAYS 08/20/18 Blood Culture - Final, Complete NO GROWTH AFTER 5 DAYS 08/20/18 Gram Stain - Final, Complete 08/20/18 Body Fluid Culture - Final, Complete 08/20/18 Wound Culture - Final, Complete Klebsiella Pneumoniae Pseudomonas Aeruginosa TREVON BURNHAM MD Aug 25, 2018 10:07
[2018-08-25] MEDS: SENOKOT S TAB PO SCH ×2 (10:52→21:44)
[2018-08-25] MEDS: FLUCONAZOLE 100 MG TAB PO SCH (10:52)
[2018-08-25] MEDS: CLOPIDOGREL 75 MG TAB PO SCH (10:52)
[2018-08-25] MEDS: NEPHRO-VIT TAB (NEPHROCAPS) PO SCH (10:52)
[2018-08-25] MEDS: POTASSIUM CHLORIDE 10 MEQ SR TABLET PO SCH (10:52)
[2018-08-25] MEDS: MUPIROCIN 2% OINT 22 GM TUBE TOP SCH (10:54)
[2018-08-25 14:00] VITALS: BP 132/64
--- NOTE | 2018-08-25 16:50 | IPN ---
DATE: 08/25/2018 SUBJECTIVE: Patient was seen and examined at the bedside today morning. She is afebrile, hemodynamically stable. She reports that she got the angiogram of the left extremity done yesterday by vascular surgery. She continues to be on antibiotics. White cell count is improving. She denies any active complaints with the peritoneal dialysis at this point. OBJECTIVE: VITAL SIGNS: Temperature is 97 degrees Fahrenheit, blood pressure 139/63, pulse is 71, respiratory rate of 18, saturating 97% on room air. Intake and output: Urine output recorded is 240 mL. Weight in the bed scale is 95.4 kg. PHYSICAL EXAMINATION: GENERAL: Patient is awake, alert, oriented times three, laying in bed, no apparent distress. HEAD AND NECK EXAM: Extraocular muscles intact. Pupils equally round and reactive to light. Mucous membranes are moist. Neck is supple. There is no jugular venous distention (JVD). CARDIOVASCULAR: S1, S2. 1+ edema of the bilateral lower extremities. RESPIRATORY: Chest is clear to auscultation bilaterally. Bilateral equal air entry. No rales or rhonchi. ABDOMEN: Abdomen is soft. Right lower quadrant peritoneal dialysis (PD) catheter was noted. MUSCULOSKELETAL: Patient has left 1st and 2nd toe gangrene and left foot heel gangrene as well. CENTRAL NERVOUS SYSTEM (AUTOMOBILE MECHANIC SUPERVISOR): No focal deficit. Power is 5/5 in all extremities. LABORATORY REVIEW: CBC showed WBC of 12.9, hemoglobin 9, platelets are 196. BMP showed sodium 136, potassium 4, chloride 97, bicarbonate 28, BUN 54, creatinine is 6.4, calcium 8.1, phosphorus is 5.3, albumin 1.6. CURRENT INPATIENT MEDICATIONS: Patient's medications were all reviewed by me. Insulin Levemir dose has been decreased to 15 units daily. She was also given a dose of Aranesp 100 mcg today morning. No other change in the medications today as compared with yesterday. ASSESSMENT AND PLAN: 1. End-stage renal disease on peritoneal dialysis. Patient is getting peritoneal dialysis with 2.5% dialysate. No active issues at this point. Continue current regimen. 2. Lower extremity edema. Continue current dose of peritoneal dialysis (PD) regimen, five manual exchanges, all 2 liters in volume and all 2.5% dextrose. 3. Left foot gangrene. Patient is getting oral Levaquin according to culture and sensitivity. She got angiogram of the left leg done. Rest of the management is as per vascular surgery. 4. Anemia in end-stage renal disease. Patient was given a dose of Aranesp 100 mcg subcutaneous today morning. 5. Chronic kidney disease-mineral bone disease. Continue current dose of Renvela 2.4 grams by mouth three times a day with meals. 6. Diabetes mellitus type 2, insulin dependent. Patient's blood sugar levels were running low. Levemir dose has been decreased to 15 units daily.
[2018-08-25] MEDS: LEVEMIR (INSULIN DETEMIR) 1 UNITS/0.01ML SC SCH (21:30)
[2018-08-25] MEDS: ATORVASTATIN 20 MG TAB PO SCH (21:44)
[2018-08-25] MEDS: ASPIRIN 81 MG ENTERIC TAB PO SCH (21:44)
[2018-08-25] MEDS: PERCOCET 5MG/325MG TAB PO PRN (21:47)
[2018-08-25 22:00] VITALS: BP 143/73
[2018-08-26 06:00] VITALS: BP 130/63
[2018-08-26] MEDS: LevoFLOXacin 500 MG TABLET PO SCH (06:06)
[2018-08-26] MEDS: HumaLOG INSULIN (NovoLOG) PER UNIT SC SCH ×4 (07:30→21:59)
[2018-08-26] MEDS: HEPARIN SOD (PORCINE) 5000 UNITS/ML VIAL SC SCH ×2 (09:00→22:00)
[2018-08-26] MEDS: BISACODYL 10 MG SUPP PR SCH ×2 (09:00→22:00)
[2018-08-26] MEDS: (RENVELA) SEVELAMER **CARBONate** 800 MG TAB PO SCH ×3 (09:01→18:58)
[2018-08-26] MEDS: SENOKOT S TAB PO SCH ×2 (09:03→22:21)
[2018-08-26] MEDS: FLUCONAZOLE 100 MG TAB PO SCH (09:03)
[2018-08-26] MEDS: POTASSIUM CHLORIDE 10 MEQ SR TABLET PO SCH (09:03)
[2018-08-26] MEDS: NEPHRO-VIT TAB (NEPHROCAPS) PO SCH (09:03)
[2018-08-26] MEDS: CLOPIDOGREL 75 MG TAB PO SCH (09:03)
[2018-08-26] MEDS: MUPIROCIN 2% OINT 22 GM TUBE TOP SCH (09:04)
[2018-08-26 14:00] VITALS: BP 147/61
--- NOTE | 2018-08-26 14:54 | IPNPDOC ---
Date Seen The patient was seen on 08/26/18. Progress Note SUBJECTIVE: No new complaints. No signs of bleeding from yesterday's procedure. Pt requesting to talk to Dr. Pratt. OBJECTIVE: Physical Examination vitals: pls see below General Exam: Positive: Alert, Cooperative, No Acute Distress Eye Exam: Positive: PERRLA, Conjunctiva & lids normal, EOMI; Negative: Sclera icteric ENT Exam: Positive: Atraumatic, Mucous membr. moist/pink, Pharynx Normal Neck Exam: Positive: Supple; Negative: JVD, thyromegaly Chest Exam: Positive: Clear to auscultation, Normal air movement Heart Exam: Positive: Rate Normal, Regular Rhythm, Normal S1, Normal S2; Negative: Murmurs, Rubs Abdomen Exam: Positive: Normal bowel sounds, Soft; Negative: Tenderness, Hepatospenomegaly Extremity Exam: Positive: Normal pulses, left heel ulcer,dry gangrene in left hallux and 2nd toe Negative: Clubbing, Cyanosis, Edema Skin Exam: Positive: Nl turgor and temperature; Negative: Breakdown, Lesion Psych Exam: Positive: Mental status NL, Mood NL, Oriented x 3 LABORATORY DATA, IMAGING STUDIES, MICROBIOLOGY: REVIEWED, PLS SEE BELOW arterial dopplers 08/23/18: Ankle brachial indices could not be obtained on either side due to noncompressible vessels. Blood pressure in the arms was quite high, greater than 280 mm mercury. Exam quality and extent is significantly limited due to extensive shadowing calcific plaquing. Multiple levels of arterial stenoses are seen bilaterally. The posterior tibial arteries proximally show no observable flow on either side. Occlusion versus extensive shadowing from calcific plaquing. Biphasic and monophasic flow are seen in the right lower extremity. Monophasic flow is seen in the tibioperoneal trunk and the distal anterior tibial artery on the left. ASSESSMENT AND PLAN: 63-year-old female with ischemic cardiomyopathy with EF of 23% as of [address], coronary artery disease status post CABG, 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 difficile infection, PVD, diabetes mellitus type 2, hyperlipidemia , CVA in the past, anemia of chronic disease, diabetic neuropathy, initially present to the ED around 2 am on 08/20/18 for a blood sugar reading of high a home. Patient had gone to bed at her usual time of around 10 pm with her cycler in place woke up around 2 am feeling uncomfortable, antsy, restless could not go back to sleep. this happened the previous night also. This night she checked her blood sugar due to this vague restless and uncomfortable feeling and found it reading HIGH so came to the ED. In the ED she was managed for hyperglycemia overnight . In the morning around 7 am her sugar was 112 so she was discharged home. She said that she was still not feeling her normal self. Was still dizzy and weak and had some trouble to with balance while walkin g. She was outside the ED getting into the car which her sister was driving when suddenly everything blacked out in front of her and she almost passed out so came back to the ED for reevaluation. Pateint also mentioned that for the past 2 days she has been having some bowel issues. She has been having some abdominal cramps and tenesmus and sensation of not emptying completely so having to go again and again with small . She also says she had seen Dr Truong 4 days ago and he had debrided the left heel ulcer. In the ED pateint was found to have a WBC of 18k and elevated lactate. Her PD fluid was tested and was negative for any peritonitis. Pateint was noted to be anemic to 7.9 down from her baseline of about 10.[address] abdomen pelvis and CT chest are unremarkable, PD fluid clear Had recent debridement done of a chronic heel ulcer which may have thrown a tra nsient shower of bacteria into the blood blood culture have been sent s/p Zosyn and vancomycin. consulted vascular surgery for revascularization, previously managed by dr. truong, java jsf developer, who has referred pt to vascular surgery for further management. Near syncope unremarkable telemetry due to anemia and hypotension, underlying infection. transfused 2 units of PRBC negative orthostatics. ESRD on PD for 3 years continue PD exchanges as per nephrology Acute on chronic anemia reviewed iron studies transfused 2 units. Infected Left heel ulcer/gangrenous hallux and 2nd toe s/pZosyn and vancomycin. consulted vascular surgery for revascularization. angioplasty with stent placement per vascular surgery on po levaquin renally dosed 08/24/18 due to foot ulcer cx: klebsiella and pseudomonas. Longstanding history of diabetes. on consistent carbs diet, resumed home meds, insulin sliding scale Hypertension. resumed home meds Coronary artery disease, status post quadruple bypass surgery. Ischemic cardiomyopathy with ejection fraction of 20-25%. History of discitis/ History of osteomyelitis of L5 and S1. History of congestive heart failure. History of Clostridium difficile colitis in the past. Peripheral vascular disease. angioplasty with stent planned for 08/24/18. npo for 8hrs. managed by vascular surgery Hyperlipidemia. History of cardiac arrest during peritoneal dialysis catheter placement. disposition: defer to vascular surgery VS, I&O, 24H, Fishbone Vital Signs/I&O Vital Signs Date Time Temp Pulse Resp B/P (MAP) Pulse Ox O2 Delivery O2 Flow Rate FiO2 08/26/18 14:00 97.2 80 20 147/61 (89) 98 Room Air 08/20/18 13:45 I&O- Last 24 Hours up to 6 AM 08/26/18 05:59 Intake Total 20751 ml Output Total 67476 ml Balance -660 ml Laboratory Data 24H LABS Laboratory Tests 2 08/25/18 16:57: Bedside Glucose (Misc Panel) 160H 08/25/18 20:26: Bedside Glucose (Misc Panel) 180H 08/26/18 06:01: Bedside Glucose (Misc Panel) 169H Microbiology Microbiology 08/20/18 Blood Culture - Final, Complete NO GROWTH AFTER 5 DAYS 08/20/18 Blood Culture - Final, Complete NO GROWTH AFTER 5 DAYS 08/20/18 Gram Stain - Final, Complete 08/20/18 Body Fluid Culture - Final, Complete 08/20/18 Wound Culture - Final, Complete Klebsiella Pneumoniae Pseudomonas Aeruginosa TREVON BURNHAM MD Aug 26, 2018 14:54
[2018-08-26 22:00] VITALS: BP 125/64
[2018-08-26] MEDS: ATORVASTATIN 20 MG TAB PO SCH (22:20)
[2018-08-26] MEDS: LEVEMIR (INSULIN DETEMIR) 1 UNITS/0.01ML SC SCH (22:20)
[2018-08-26] MEDS: PERCOCET 5MG/325MG TAB PO PRN (22:20)
[2018-08-26] MEDS: ASPIRIN 81 MG ENTERIC TAB PO SCH (22:21)
[2018-08-27 06:00] VITALS: BP 140/65
[2018-08-27] MEDS: HumaLOG INSULIN (NovoLOG) PER UNIT SC SCH ×4 (07:30→21:00)
[2018-08-27] MEDS: NEPHRO-VIT TAB (NEPHROCAPS) PO SCH (08:31)
[2018-08-27] MEDS: FLUCONAZOLE 100 MG TAB PO SCH (08:31)
[2018-08-27] MEDS: SENOKOT S TAB PO SCH ×2 (08:31→21:34)
[2018-08-27] MEDS: (RENVELA) SEVELAMER **CARBONate** 800 MG TAB PO SCH ×3 (08:31→17:56)
[2018-08-27] MEDS: CLOPIDOGREL 75 MG TAB PO SCH (08:31)
[2018-08-27] MEDS: POTASSIUM CHLORIDE 10 MEQ SR TABLET PO SCH (08:32)
[2018-08-27] MEDS: MUPIROCIN 2% OINT 22 GM TUBE TOP SCH (08:32)
[2018-08-27] MEDS: BISACODYL 10 MG SUPP PR SCH ×2 (08:34→21:00)
[2018-08-27] MEDS: HEPARIN SOD (PORCINE) 5000 UNITS/ML VIAL SC SCH ×2 (08:45→21:33)
[2018-08-27 09:56] LABS: BASO # 0.1 10^3/uL (0.0-0.2); BASO % 0.4 % (0.0-1.0); HEMATOCRIT 29.2 % (36.0-47.0); HEMOGLOBIN 9.2 g/dl (12.0-15.5); LYMPH # 2.1 10^3/uL (1.5-4.5); LYMPH % 17.6 % (24.0-44.0); MEAN CORPUSCULAR HEMOGLOBIN 29.3 pg (27.0-33.0); MEAN CORPUSCULAR HGB CONC 31.5 g/dl (32.0-36.5); MONO # 0.8 10^3/uL (0.0-0.8); MONO % 6.3 % (0.0-5.0); NEUTROPHILS % 74.9 % (36.0-66.0); PLATELET COUNT, AUTOMATED 191 10^3/uL (150-450); RED BLOOD COUNT 3.14 10^6/uL (4.00-5.40)
--- NOTE | 2018-08-27 10:16 | IPN ---
DATE OF SERVICE: 08/26/2018 SUBJECTIVE: The patient was seen and examined at the bedside today morning. She is afebrile and hemodynamically stable. She denies any edema anymore. She denies any problems with the PD. White cell count continues to improve. OBJECTIVE: Vital Signs: Temperature 98.7 degrees Fahrenheit. Blood pressure 130/63. Pulse 78. Respiratory rate 18. Saturating 98% on room air. Intake and Output: Urine output recorded as 240 mL yesterday. There is no urine output recorded today. Peritoneal dialysis output is 4 liters since overnight. Weight on the bed scale is 91.2 kg. PHYSICAL EXAMINATION: General: Patient is awake, alert, oriented times three, laying in bed in no apparent distress. Head and Neck Exam: Extraocular muscles intact. Pupils equally round and reactive to light. Mucous membranes are moist. Neck is supple. There is no jugular venous distention. Cardiovascular: S1, S2. Trace edema of the bilateral lower extremities. Respiratory: Chest is clear to auscultation bilaterally. Bilateral equal air entry. No rales or rhonchi. Abdomen: Soft. Right lower quadrant PD catheter was noted. Musculoskeletal: She has a left first and second toe gangrene and left heel gangrene as well. Central Nervous System: No focal deficit. Power is 5/5 in all extremities. LAB REVIEW: CBC showed a WBC of 12.9, hemoglobin 9 and platelets are 196. BMP showed sodium 136, potassium 4, chloride 97, bicarbonate 28, BUN 54, creatinine 6.4, calcium 8.1, phosphorus 5.3, albumin 1.6. CURRENT INPATIENT MEDICATIONS: Patient's medications were all reviewed by me. There is no change in the medicines today as compared with yesterday. ASSESSMENT AND PLAN: 1. End stage renal disease on peritoneal dialysis. Continue current peritoneal dialysis regimen. Five exchanges, all 2 liters, all 2.5%. 2. Left foot gangrene. Patient is currently on oral Levaquin. White cell count continues to improve. She got the angiogram done by vascular surgery. Further plan is as per vascular surgery recommendations. 3. Anemia and end stage renal disease. Hemoglobin is 9 which is slightly suboptimal. Patient was already given a dose of Aranesp yesterday. Continue to monitor for now. 4. Chronic kidney disease mineral bone disease. Phosphorus level is improving to 5.3. Continue current dose of Renvela 2.4 grams with meals. 5. Diabetes mellitus type 2. Insulin dependent. Patient's glucose is well controlled at this point. Continue current dose of insulin sliding scale and Levemir 15 units subcutaneous daily.
[2018-08-27 10:17] LABS: ALBUMIN 1.6 GM/DL (3.2-5.2); CALCIUM LEVEL 8.1 MG/DL (8.8-10.2); CREATININE FOR GFR 6.57 MG/DL (0.55-1.30); GLOMERULAR FILTRATION RATE 6.8 (>45); PHOSPHORUS LEVEL 5.3 MG/DL (2.5-4.9)
--- NOTE | 2018-08-27 10:39 | IPNPDOC ---
Date Seen The patient was seen on 08/27/18. Progress Note SUBJECTIVE: No new complaints. awaiting physical therapy clearance.nofever or chills. Pt requesting to talk to Dr. Pratt. no other acute issues. OBJECTIVE: Physical Examination vitals: pls see below General Exam: Positive: Alert, Cooperative, No Acute Distress Eye Exam: Positive: PERRLA, Conjunctiva & lids normal, EOMI; Negative: Sclera icteric ENT Exam: Positive: Atraumatic, Mucous membr. moist/pink, Pharynx Normal Neck Exam: Positive: Supple; Negative: JVD, thyromegaly Chest Exam: Positive: Clear to auscultation, Normal air movement Heart Exam: Positive: Rate Normal, Regular Rhythm, Normal S1, Normal S2; Negative: Murmurs, Rubs Abdomen Exam: Positive: Normal bowel sounds, Soft; Negative: Tenderness, Hepatospenomegaly Extremity Exam: Positive: Normal pulses, left heel ulcer,dry gangrene in left hallux and 2nd toe Negative: Clubbing, Cyanosis, Edema Skin Exam: Positive: Nl turgor and temperature; Negative: Breakdown, Lesion Psych Exam: Positive: Mental status NL, Mood NL, Oriented x 3 LABORATORY DATA, IMAGING STUDIES, MICROBIOLOGY: REVIEWED, PLS SEE BELOW arterial dopplers 08/23/18: Ankle brachial indices could not be obtained on either side due to noncompressible vessels. Blood pressure in the arms was quite high, greater than 280 mm mercury. Exam quality and extent is significantly limited due to extensive shadowing calcific plaquing. Multiple levels of arterial stenoses are seen bilaterally. The posterior tibial arteries proximally show no observable flow on either side. Occlusion versus extensive shadowing from calcific plaquing. Biphasic and monophasic flow are seen in the right lower extremity. Monophasic flow is seen in the tibioperoneal trunk and the distal anterior tibial artery on the left. ASSESSMENT AND PLAN: 63-year-old female with ischemic cardiomyopathy with EF of 23% as of [address], coronary artery disease status post CABG, osteomyelitis and di scitis of the lumbar spine in 2016, end-stage renal disease on peritoneal dialysis, prior C. difficile infection, PVD, diabetes mellitus type 2, hyperlipidemia , CVA in the past, anemia of chronic disease, diabetic neuropathy, initially present to the ED around 2 am on 1/7/19 for a blood sugar reading of high a home. Patient had gone to bed at her usual time of around 10 pm with her cycler in place woke up around 2 am feeling uncomfortable, antsy, restless could not go back to sleep. this happened the previous night also. This night she checked her blood sugar due to this vague restless and uncomfortable feeling and found it reading HIGH so came to the ED. In the ED she was managed for hyperglycemia overnight . In the morning around 7 am her sugar was 112 so she was discharged home. She said that she was still not feeling her normal self. Was still dizzy and weak and had some trouble to with balance while walking. She was outside the ED getting into the car which her sister was driving when suddenly everything blacked out in front of her and she almost passed out so came back to the ED for reevaluation. Pateint also mentioned that for the past 2 days she has been having some bowel issues. She has been having some abdominal cramps and tenesmus and sensation of not emptying completely so having to go again and again with small . She also says she had seen Dr Truong 4 days ago and he had debrided the left heel ulcer. In the ED pateint was found to have a WBC of 18k and elevated lactate. Her PD fluid was tested and was negative for any peritonitis. Pateint was noted to be anemic to 7.9 down from her baseline of about 10.[address] abdomen pelvis and CT chest are unremarkable, PD fluid clear Had recent debridement done of a chronic heel ulcer which may have thrown a transient shower of bacteria into the blood blood culture have been sent s/p Zosyn and vancomycin. consulted vascular surgery for revascularization, previously managed by dr. truong, telemetry rn, who has referred pt to vascular [facility] for further management. Near syncope unremarkable telemetry due to anemia and hypotension, underlying infection. transfused 2 units of PRBC negative orthostatics. ESRD on PD for 3 years continue PD exchanges as per nephrology Acute on chronic anemia reviewed iron studies transfused 2 units. Infected Left heel ulcer/gangrenous hallux and 2nd toe s/pZosyn and vancomycin. consulted vascular surgery for revascularization. angioplasty with stent placement per vascular surgery on po levaquin renally dosed 08/24/18 due to foot ulcer cx: klebsiella and pseudomonas. Longstanding history of diabetes. on consistent carbs diet, resumed home meds, insulin sliding scale Hypertension. resumed home meds Coronary artery disease, status post quadruple bypass surgery. Ischemic cardiomyopathy with ejection fraction of 20-25%. History of discitis/ History of osteomyelitis of L5 and S1. History of congestive heart failure. History of Clostridium difficile colitis in the past. Peripheral vascular disease. angioplasty with stent planned for 08/24/18. npo for 8hrs. managed by vascular surgery Hyperlipidemia. History of cardiac arrest during peritoneal dialysis catheter placement. disposition: defer to vascular surgery VS, I&O, 24H, Fishbone Vital Signs/I&O Vital Signs Date Time Temp Pulse Resp B/P (MAP) Pulse Ox O2 Delivery O2 Flow Rate FiO2 08/27/18 06:00 97.8 78 20 140/65 (90) 98 08/26/18 22:50 Room Air I&O- Last 24 Hours up to 6 AM 08/27/18 06:00 Intake Total 8820 ml Output Total 8890 ml Balance -70 ml Laboratory Data Microbiology Microbiology 08/20/18 Blood Culture - Final, Complete NO GROWTH AFTER 5 DAYS 08/20/18 Blood Culture - Final, Complete NO GROWTH AFTER 5 DAYS 08/20/18 Gram Stain - Final, Complete 08/20/18 Body Fluid Culture - Final, Complete 08/20/18 Wound Culture - Final, Complete Klebsiella Pneumoniae Pseudomonas Aeruginosa TREVON BURNHAM MD Aug 27, 2018 08:50
[2018-08-27 14:00] VITALS: BP 130/74
--- NOTE | 2018-08-27 14:50 | IPN ---
DATE: 08/27/2018 SUBJECTIVE: Patient was seen and examined at the bedside. She is afebrile and hemodynamically stable. She denies any active complaints with the peritoneal dialysis. She is still awaiting final plan from vascular surgery at this point. OBJECTIVE: VITAL SIGNS: Temperature 97.8 degrees Fahrenheit, blood pressure 140/65, pulse 78, respiratory rate 20 saturating 98% on room air. INTAKE AND OUTPUT: There is no urine output recorded. Peritoneal dialysis output is 4.4 liters, so far since overnight with 290 mL negative balance. Weight in the bed scale is 89.9 kg. PHYSICAL EXAMINATION: GENERAL: Patient is awake, alert and oriented times three, laying in bed. No apparent distress. HEAD AND NECK EXAM: Extraocular muscles intact. Pupils are equally round and reactive to light. Mucous membranes are moist. NECK: Supple. There is no JVD. CARDIOVASCULAR: S1, S2 trace edema of the bilateral lower extremities. RESPIRATORY: Chest is clear to auscultation bilaterally. Bilateral equal air entry. No rales or rhonchi. ABDOMEN: Soft. Right lower quadrant PD catheter was noted. MUSCULOSKELETAL: She has a left first and second toe gangrene and teeth gangrene as well. CT MANAGER: No focal deficit. Power is 5/5 in all extremities. LABS: CBC showed a WBC of 12, hemoglobin 9.2, platelets 191, BMP showed a sodium 139, potassium 4, chloride 96, bicarbonate 29, BUN 47, creatinine 6.5, calcium 8.1, phosphorus 5.3, albumin 1.6. CURRENT INPATIENT MEDICATIONS: Patient's medications were all reviewed by me. There is no change in the medications today as compared with yesterday. ASSESSMENT AND PLAN: 1. End-stage renal disease on peritoneal dialysis catheter. Patient's volume status is optimized. Continue current regimen. 2. Left foot gangrene. Patient is currently on oral Levaquin. Angiogram was done with vascular surgery, further plan of care is as per vascular surgery recommendations. 3. Anemia and end stage renal disease. Hemoglobin is 9.2. Continue current dose of Aranesp 100 mcg subcu once a week. 4. Chronic kidney disease. Continue current dose or Renvela with meals. 5. Diabetes mellitus type 2, insulin dependant. Glucose levels are well controlled with current dose of insulin sliding scale and Levemir.
[2018-08-27] MEDS: LEVEMIR (INSULIN DETEMIR) 1 UNITS/0.01ML SC SCH (21:32)
[2018-08-27] MEDS: ATORVASTATIN 20 MG TAB PO SCH (21:33)
[2018-08-27] MEDS: ASPIRIN 81 MG ENTERIC TAB PO SCH (21:33)
[2018-08-27] MEDS: PERCOCET 5MG/325MG TAB PO PRN (21:34)
[2018-08-27 22:00] VITALS: BP 149/67
[2018-08-28 06:00] VITALS: BP 121/60
[2018-08-28 06:05] LABS: BASO # 0.1 10^3/uL (0.0-0.2); BASO % 0.4 % (0.0-1.0); EOS % 0.1 % (0.0-3.0); HEMOGLOBIN 9.3 g/dl (12.0-15.5); LYMPH # 2.2 10^3/uL (1.5-4.5); LYMPH % 16.2 % (24.0-44.0); MEAN CORPUSCULAR HEMOGLOBIN 29.4 pg (27.0-33.0); MEAN CORPUSCULAR VOLUME 94.9 fl (80.0-96.0); MONO # 0.8 10^3/uL (0.0-0.8); NEUTROPHILS # 10.4 10^3/uL (1.8-7.7); NEUTROPHILS % 76.6 % (36.0-66.0); PLATELET COUNT, AUTOMATED 200 10^3/uL (150-450); RED BLOOD COUNT 3.16 10^6/uL (4.00-5.40); WHITE BLOOD COUNT 13.6 10^3/uL (4.0-10.0)
[2018-08-28] MEDS: LevoFLOXacin 500 MG TABLET PO SCH (06:09)
[2018-08-28 06:27] LABS: CALCIUM LEVEL 8.7 MG/DL (8.8-10.2); CREATININE FOR GFR 6.82 MG/DL (0.55-1.30); GLOMERULAR FILTRATION RATE 6.5 (>45); POTASSIUM SERUM 4.4 MEQ/L (3.5-5.1)
[2018-08-28] MEDS: HumaLOG INSULIN (NovoLOG) PER UNIT SC SCH ×4 (07:30→21:00)
[2018-08-28] MEDS: (RENVELA) SEVELAMER **CARBONate** 800 MG TAB PO SCH ×3 (07:54→18:03)
[2018-08-28] MEDS: NEPHRO-VIT TAB (NEPHROCAPS) PO SCH (09:53)
[2018-08-28] MEDS: POTASSIUM CHLORIDE 10 MEQ SR TABLET PO SCH (09:53)
[2018-08-28] MEDS: SENOKOT S TAB PO SCH ×2 (09:54→21:47)
[2018-08-28] MEDS: CLOPIDOGREL 75 MG TAB PO SCH (09:54)
[2018-08-28] MEDS: FLUCONAZOLE 100 MG TAB PO SCH (09:54)
[2018-08-28] MEDS: HEPARIN SOD (PORCINE) 5000 UNITS/ML VIAL SC SCH ×2 (09:55→21:47)
[2018-08-28] MEDS: BISACODYL 10 MG SUPP PR SCH ×2 (09:55→21:49)
[2018-08-28] MEDS: MUPIROCIN 2% OINT 22 GM TUBE TOP SCH (09:56)
[2018-08-28 15:00] VITALS: BP 148/72
[2018-08-28] MEDS: ATORVASTATIN 20 MG TAB PO SCH (21:47)
[2018-08-28] MEDS: ASPIRIN 81 MG ENTERIC TAB PO SCH (21:47)
[2018-08-28] MEDS: LEVEMIR (INSULIN DETEMIR) 1 UNITS/0.01ML SC SCH (21:48)
[2018-08-28] MEDS: PERCOCET 5MG/325MG TAB PO PRN (21:48)
[2018-08-28 22:00] VITALS: BP 125/58
--- NOTE | 2018-08-29 00:09 | IPNPDOC ---
Text Note Date of Service The patient was seen on 08/28/18. NOTE SUBJECTIVE: No new complaints this morning. As per Dr Pratt no further interv entions planned from his side at present. He suggested continued outpateint wound care and referral for hyperbaric therapy. Spoke with Dr Truong and he is ok with this referral so will set up an appointment with Dr wolfe soon after discharge. No fever or chills. no nausea or vomiting or diarrhea. PHYSICAL EXAM: vitals: pls see below General Exam: Positive: Alert, Cooperative, No Acute Distress Eye Exam: Positive: PERRLA, Conjunctiva & lids normal, EOMI; Negative: Sclera icteric ENT Exam: Positive: Atraumatic, Mucous membr. moist/pink, Pharynx Normal Neck Exam: Positive: Supple; Negative: JVD, thyromegaly Chest Exam: Positive: Clear to auscultation, Normal air movement Heart Exam: Positive: Rate Normal, Regular Rhythm, Normal S1, Normal S2; Negative: Murmurs, Rubs Abdomen Exam: Positive: Normal bowel sounds, Soft; Negative: Tenderness, Hepatospenomegaly Extremity Exam: Positive: Normal pulses, left heel ulcer,dry gangrene in left hallux and 2nd toe Negative: Clubbing, Cyanosis, Edema Skin Exam: Positive: Nl turgor and temperature; Negative: Breakdown, Lesion Psych Exam: Positive: Mental status NL, Mood NL, Oriented x 3 LABORATORY DATA, IMAGING STUDIES, MICROBIOLOGY: REVIEWED, PLS SEE BELOW ASSESSMENT AND PLAN: 63-year-old female with ischemic cardiomyopathy with EF of 23% as of [address], coronary artery disease status post CABG, 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 difficile infection, PVD, diabetes mellitus type 2, hyperlipidemia , CVA in the past, anemia of chronic disease, diabetic neuropathy, initially present to the ED around 2 am on 08/20/18 for a blood sugar reading of high a home. Patient had gone to bed at her usual time of around 10 pm with her cycler in place woke up around 2 am feeling uncomfortable, antsy, restless could not go back to sleep. this happened the previous night also. This night she checked her blood sugar due to this vague restless and uncomfortable feeling and found it reading HIGH so came to the ED. In the ED she was managed for hyperglycemia overnight . In the morning around 7 am her sugar was 112 so she was discharged home. She said that she was still not feeling her normal self. Was still dizzy and weak and had some trouble to with balance while walking. She was outside the ED getting into the car which her sister was driving when suddenly everything blacked out in front of her and she almost passed out so came back to the ED for reevaluation. Pateint also mentioned that for the past 2 days she has been having some bowel issues. She has been having some abdominal cramps and tenesmus and sensation of not emptying completely so having to go again and again with small . She also says she had seen Dr Truong 4 days ago and he had debrided the left heel ulcer. In the ED pateint was found to have a WBC of 18k and elevated lactate. Her PD fluid was tested and was negative for any peritonitis. Pateint was noted to be anemic to 7.9 down from her baseline of about 10.0 Infected Left heel ulcer/gangrenous hallux and 2nd toe due to diabetes with neurpathy and peripheral arterial disease s/p Zosyn and vancomycin. on po levaquin renally dosed 08/24/18 due to foot ulcer cx: klebsiella and pseudomonas. Continue wound care as outpateint referral to Dr Wolfe for hyperbaric therapy which may be the only hope for this ulcer to heal. he anticipates that the wound is not going to do good and the pateint will probably need a BKA or AKA in [place]alt near future for non healing and progressive wounds. This was discussed with Dr Truong over the phone and her agrees with the referral to Dr wolfe an he will follow as outpatient. Peripheral arterial disease Has extensive bilateral lower extremity arterial disease below the knees. On the Left there is extensive disease with minimal blood flow in the anterior and posterior tibial arteries with small collaterals. the left peroneal artery was opened up by athrectomy by Dr pratt as outpateint. repeat LE arben this admission shows the the peroneal artery remains patent. No interventions done this admission As per Dr Pratt no further vascular intervensions are possible below the leg as her arteries are very small and almost no collaterals. Leucocytosis and lactacidosis CT abdomen pelvis and CT chest are unremarkable, PD fluid clear Had recent debridement done of a chronic heel ulcer which may have thrown a transient shower of bacteria into the blood blood culture have been sent s/p Zosyn and vancomycin. consulted vascular surgery for revascularization, previously managed by dr. truong, veneer taping machine offbearer, who has referred pt to vascular surgery for further management. Near syncope unremarkable telemetry due to anemia and hypotension, underlying infection and hyperglycemia transfused 2 units of PRBC negative orthostatics. ESRD on PD for 3 years continue PD exchanges as per nephrology Acute on chronic anemia reviewed iron studies transfused 2 units. Longstanding history of diabetes with diabetic neuropathy on consistent carbs diet, resumed home meds, insulin sliding scale Hypertension. continue home meds Ischemic cardiomyopathy with EF of 23% in 2017 with CHF Has AICD in place patient makes minimal urine fluid management through dialysis Appears Euvolemic at present CAD with CABG in 2010 continue home meds. ASA, Plavix, Statin History of discitis/ History of osteomyelitis of L5 and S1 in 2016 History of congestive heart failure. History of Clostridium difficile colitis in the past. Hyperlipidemia continue statin. History of cardiac arrest during peritoneal dialysis catheter placement Disposition: home in the next 24 hours. VS,Fishbone, I+O VS, Fishbone, I+O Laboratory Tests 08/28/18 05:28 Red Blood Count 3.16 L, Mean Corpuscular Volume 94.9, Mean Corpuscular He moglobin 29.4, Mean Corpuscular Hemoglobin Concent 31.0 L, Red Cell Distribution Width 14.6 H, Neutrophils (%) (Auto) 76.6 H, Lymphocytes (%) (Auto) 16.2 L, Monocytes (%) (Auto) 6.0 H, Eosinophils (%) (Auto) 0.1, Basophils (%) (Auto) 0.4, Neutrophils # (Auto) 10.4 H, Lymphocytes # (Auto) 2.2, Monocytes # (Auto) 0.8, Eosinophils # (Auto) 0.0, Basophils # (Auto) 0.1, Calcium Level 8.7 L Vital Signs Date Time Temp Pulse Resp B/P (MAP) Pulse Ox O2 Delivery O2 Flow Rate FiO2 08/28/18 22:18 20 08/28/18 22:00 98.1 80 125/58 (80) 97 Room Air I&O- Last 24 Hours up to 6 AM 08/28/18 06:00 Intake Total 11014 ml Output Total 04131 ml Balance -735 ml BOBO SINGLETON MD Aug 29, 2018 00:09
[2018-08-29 06:00] VITALS: BP 136/72
[2018-08-29 06:19] LABS: BASO # 0.1 10^3/uL (0.0-0.2); BASO % 0.3 % (0.0-1.0); HEMATOCRIT 28.7 % (36.0-47.0); LYMPH # 1.9 10^3/uL (1.5-4.5); LYMPH % 12.6 % (24.0-44.0); MEAN CORPUSCULAR HEMOGLOBIN 29.1 pg (27.0-33.0); MEAN CORPUSCULAR HGB CONC 31.4 g/dl (32.0-36.5); MEAN CORPUSCULAR VOLUME 92.9 fl (80.0-96.0); MONO # 0.8 10^3/uL (0.0-0.8); MONO % 5.5 % (0.0-5.0); NEUTROPHILS # 12.2 10^3/uL (1.8-7.7); PLATELET COUNT, AUTOMATED 186 10^3/uL (150-450); RED BLOOD COUNT 3.09 10^6/uL (4.00-5.40)
[2018-08-29 06:39] LABS: CALCIUM LEVEL 8.7 MG/DL (8.8-10.2); CREATININE FOR GFR 6.73 MG/DL (0.55-1.30); GLOMERULAR FILTRATION RATE 6.6 (>45); POTASSIUM SERUM 4.6 MEQ/L (3.5-5.1)
[2018-08-29] MEDS: (RENVELA) SEVELAMER **CARBONate** 800 MG TAB PO SCH ×2 (08:00→13:32)
[2018-08-29] MEDS ORDERED: CINACALCET 30 MG TAB (SENSIPAR) PO SCH (09:00)
[2018-08-29] MEDS: HEPARIN SOD (PORCINE) 5000 UNITS/ML VIAL SC SCH (09:00)
[2018-08-29] MEDS: BISACODYL 10 MG SUPP PR SCH (09:00)
[2018-08-29] MEDS: HumaLOG INSULIN (NovoLOG) PER UNIT SC SCH ×2 (10:21→13:32)
[2018-08-29] MEDS: CLOPIDOGREL 75 MG TAB PO SCH (10:23)
[2018-08-29] MEDS: FLUCONAZOLE 100 MG TAB PO SCH (10:23)
[2018-08-29] MEDS: SENOKOT S TAB PO SCH (10:23)
--- NOTE | 2018-08-29 10:23 | IPN ---
DATE: 08/28/2018 SUBJECTIVE: Patient was seen and examined at the bedside today, morning. Patient reports that she was seen by vascular surgery and she was told by vascular surgery that no further intervention is indicated at this point, she just needs debridement and debridements were deferred to podiatry. Patient also reports that she is not receiving Nepro and she wants to take Nepro because she takes it every day at home because of protein calorie malnutrition, and she also wants to restart her Sensipar, which is not being given to her. Otherwise, she denies any active complaints. OBJECTIVE: VITAL SIGNS: Temperature is 98.3 degrees Fahrenheit, blood pressure 148/72, pulse is 83, respiratory rate of 18, saturating 99% on room air. INTAKE AND OUTPUT: Urine output is not recorded. Weight in the bed scale is 90 kg. She is negative 950 mL fluid balance at peritoneal dialysis. PHYSICAL EXAMINATION: GENERAL: Patient is awake, alert, oriented times three, laying in bed, no apparent distress. HEAD AND NECK EXAM: Extraocular muscles intact. Pupils equally round and reactive to light. Mucous membranes are moist. NECK: Is supple. There is no jugular venous distention (JVD). CARDIOVASCULAR: S1, S2. Trace edema of the bilateral lower extremities. RESPIRATORY: Chest is clear to auscultation bilaterally. Bilateral equal air entry. No rales or rhonchi. ABDOMEN: Soft. Right lower quadrant peritoneal dialysis (PD) catheter was noted. MUSCULOSKELETAL: She has left 1st and 2nd toe gangrene and heel has gangrene as well. CENTRAL NERVOUS SYSTEM (SENIOR CORPORATE ACCOUNTANT): No focal deficit. Power is 5/5 in all extremities. LAB REVIEW: Complete blood count (CBC) showed a WBC of 13.6, hemoglobin 9.3, platelets are 200. Basic metabolic panel (BMP) showed sodium 135, potassium 4.4, chloride 97, bicarbonate 28, BUN 46, creatinine 6.8. CURRENT INPATIENT MEDICATIONS: Patient's medications were all reviewed by me. There is no change in the medications today as compared with yesterday. ASSESSMENT AND PLAN: 1. End-stage renal disease on peritoneal dialysis. Volume status is optimized. Continue current PD regimen. 2. Left foot gangrene. Patient is currently on oral Levaquin. Angiogram was done by vascular surgery. Further debridements have been deferred to podiatry. 3. Anemia and end-stage renal disease. Continue current dose of Aranesp. No need of blood transfusion. 4. Protein calorie malnutrition. I have restarted the patient on Nepro 1 can daily with lunch. 5. Secondary hyperparathyroidism. Patient was getting Sensipar at home. I have restarted the Sensipar dose 30 mg Monday, Monday, Monday.
[2018-08-29] MEDS: POTASSIUM CHLORIDE 10 MEQ SR TABLET PO SCH (10:24)
[2018-08-29] MEDS: MUPIROCIN 2% OINT 22 GM TUBE TOP SCH (10:24)
[2018-08-29] MEDS ORDERED: LEVA1TAB2 PO (11:11)
[2018-08-29] MEDS ORDERED: RENV2TAB PO (11:11)
--- NOTE | 2018-08-29 11:28 | DS.PDOC ---
Discharge Summary General Date of Admission Aug 20, 2018 at 12:52 Date of Discharge 08/29/18, PCP: Linda William Attending Physician: BOBO SINGLETON MD Discharge Summary PROCEDURES PERFORMED DURING STAY: Left lower extremity angiogram DISCHARGE DIAGNOSES: Presyncope due to anemia, severe hyperglycemia and infection Left heel infected chronic ulcer due to to diabetic neuropathy and vascular d isease left 1st and 2nd toe dry gangrene Peripheral arterial disease of both the lower extremities. Acute on chronic anemia due to ESRD with underlying infection. ESRD on PD CAD with CABG Ischemic cardiomyopathy with EF of 23% AICD in place H/o cardiac arrest in the past. Diabetes with neuropathy Hypertension History of discitis/ History of osteomyelitis of L5 and S1 in 2016 History of congestive heart failure History of Clostridium difficile colitis in the past. Hyperlipidemia CVA in the past COMPLICATIONS/CHIEF COMPLAINT: Esrd Pre Syncope. HISTORY OF PRESENT ILLNESS: See History and physical HOSPITAL COURSE: 63-year-old female with ischemic cardiomyopathy with EF of 23% as of [address], coronary artery disease status post CABG, 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 difficile infection, PVD, diabetes mellitus type 2, hyperlipidemia , CVA in the past, anemia of chronic disease, diabetic ne uropathy, initially present to the ED around 2 am on 08/20/18 for a blood sugar reading of high a home. Patient had gone to bed at her usual time of around 10 pm with her cycler in place woke up around 2 am feeling uncomfortable, antsy, restless could not go back to sleep. this happened the previous night also. This night she checked her blood sugar due to this vague restless and uncomfortable feeling and found it reading HIGH so came to the ED. In the ED she was managed for hyperglycemia overnight . In the morning around 7 am her sugar was 112 so she was discharged home. She said that she was still not feeling her normal self. Was still dizzy and weak and had some trouble to with balance while walking. She was outside the ED getting into the car which her sister was driving when suddenly everything blacked out in front of her and she almost passed out so came back to the ED for reevaluation. Pateint also mentioned that for the past 2 days she has been having some bowel issues. She has been having some abdominal cramps and tenesmus and sensation of not emptying completely so having to go again and again with small . She also says she had seen Dr Truong 4 days ago and he had debrided the left heel ulcer. In the ED pateint was found to have a WBC of 18k and elevated lactate. Her PD fluid was tested and was negative for any peritonitis. Pateint was noted to be anemic to 7.9 down from her baseline of about 10.0 Infected Left heel ulcer/gangrenous hallux and 2nd toe due to diabetes with neuropathy and peripheral arterial disease s/p Zosyn and vancomycin. Now on po levaquin renally dosed . Received total 10 days of antibiotics from 08/20/18 to 08/29/18. will give another 10 days. foot ulcer cx: klebsiella and pseudomonas. Continue wound care as outpateint referral to Dr Wolfe for hyperbaric therapy which may be the only hope for this ulcer to heal. he anticipates that the wound is not going to do good and the pateint will probably need a BKA or AKA in [facility] near future for non healing and progressive wounds. This was discussed with Dr Truong over the phone and her agrees with the referral to Dr wolfe an he will follow as outpatient. Peripheral arterial disease Has extensive bilateral lower extremity arterial disease below the knees. On the Left there is extensive disease with minimal blood flow in the anterior and posterior tibial arteries with small collaterals. the left peroneal artery was opened up by athrectomy by Dr pratt as outpateint. repeat LE arben this admission shows the the peroneal artery remains patent. No interventions done this admission As per Dr Pratt no further vascular intervensions are possible below the leg as her arteries are very small and almost no collaterals. Near syncope unremarkable telemetry due to anemia and hypotension, underlying infection and hyperglycemia transfused 2 units of PRBC negative orthostatics. ESRD on PD for 3 years with secondary hyperparathyroidism and hyperphosphatemia continue PD exchanges as per nephrology continue, sevelemer, calcitriol , sensipar. Acute on chronic anemia reviewed iron studies transfused 2 units. Longstanding history of diabetes with diabetic neuropathy on consistent carbs diet, resumed home meds, insulin sliding scale Hypertension. continue home meds Ischemic cardiomyopathy with EF of 23% in 2017 with CHF Has AICD in place patient makes minimal urine fluid management through dialysis Appears Euvolemic at present CAD with CABG in 2011 continue home meds. ASA, Plavix, Statin History of discitis/ History of osteomyelitis of L5 and S1 in 2016 History of congestive heart failure now euvolemic History of Clostridium difficile colitis in the past. Hyperlipidemia continue statin. History of cardiac arrest during peritoneal dialysis catheter placement DISCHARGE MEDICATIONS: Please see below. ALLERGIES: Please see below. PHYSICAL EXAMINATION ON DISCHARGE: VITAL SIGNS: Please see below. vitals: pls see below General Exam: Positive: Alert, Cooperative, No Acute Distress Eye Exam: Positive: PERRLA, Conjunctiva & lids normal, EOMI; Negative: Sclera icteric ENT Exam: Positive: Atraumatic, Mucous membr. moist/pink, Pharynx Normal Neck Exam: Positive: Supple; Negative: JVD, thyromegaly Chest Exam: Positive: Clear to auscultation, Normal air movement Heart Exam: Positive: Rate Normal, Regular Rhythm, Normal S1, Normal S2; Negative: Murmurs, Rubs Abdomen Exam: Positive: Normal bowel sounds, Soft; Negative: Tenderness, Hepatosplenomegaly Extremity Exam: Positive: pulses present, left heel ulcer,dry gangrene in left hallux and 2nd toe Negative: Clubbing, Cyanosis, Edema Psych Exam: Positive: Mental status NL, Mood NL, Oriented x 3 LABORATORY DATA: Please see below. ACTIVITY: [As tolerated]. DIET: Renal DISPOSITION: Home DISCHARGE INSTRUCTIONS: Follow up PMD in [address] Truong in [address] pratt in [address] wolfe Regular wound dressing. DISCHARGE CONDITION: Stable TIME SPENT ON DISCHARGE: Greater than 30 minutes. Vital Signs/I&Os Vital Signs Date Time Temp Pulse Resp B/P (MAP) Pulse Ox O2 Delivery O2 Flow Rate FiO2 08/29/18 06:00 98.3 83 18 136/72 (93) 94 Room Air 72 I&O- Last 24 Hours up to 6 AM 08/29/18 05:59 Intake Total 75911 ml Output Total 72871 ml Balance -1250 ml Laboratory Data Labs 24H Laboratory Tests 2 08/28/18 11:30: Bedside Glucose (Misc Panel) 139H 08/28/18 16:34: Bedside Glucose (Misc Panel) 207H 08/28/18 19:48: Bedside Glucose (Misc Panel) 187H 08/29/18 05:42: Immature Granulocyte % (Auto) 0.6, White Blood Count 15.0H, Red Blood Count 3.09L, Hemoglobin 9.0L, Hematocrit 28.7L, Mean Corpuscular Volume 92.9, Mean Corpuscular Hemoglobin 29.1, Mean Corpuscular Hemoglobin Concent 31.4L, Red Cell Distribution Width 14.6H, Platelet Count 186, Neutrophils (%) (Auto) 81.0H, Lymphocytes (%) (Auto) 12.6L, Monocytes (%) (Auto) 5.5H, Eosinophils (%) (Auto) 0.0, Basophils (%) (Auto) 0.3, Neutrophils # (Auto) 12.2H, Lymphocytes # (Auto) 1.9, Monocytes # (Auto) 0.8, Eosinophils # (Auto) 0.0, Basophils # (Auto) 0.1, Nucleated Red Blood Cells % (auto) 0.0, Anion Gap 7L, Glomerular Filtration Rate 6.6L, Blood Urea Nitrogen 45H, Creatinine 6.73H, Sodium Level 133L, Potassium Level 4.6, Chloride Level 96L, Carbon Dioxide Level 30, Calcium Level 8.7L CBC/BMP Laboratory Tests 08/29/18 05:42 Red Blood Count 3.09 L, Mean Corpuscular Volume 92.9, Mean Corpuscular Hemoglobin 29.1, Mean Corpuscular Hemoglobin Concent 31.4 L, Red Cell Distribution Width 14.6 H, Neutrophils (%) (Auto) 81.0 H, Lymphocytes (%) (Auto) 12.6 L, Monocytes (%) (Auto) 5.5 H, Eosinophils (%) (Auto) 0.0, Basophils (%) (Auto) 0.3, Neutrophils # (Auto) 12.2 H, Lymphocytes # (Auto) 1.9, Monocytes # (Auto) 0.8, Eosinophils # (Auto) 0.0, Basophils # (Auto) 0.1, Calcium Level 8.7 L FSBS Laboratory Tests Test 08/28/18 11:30 08/28/18 16:34 08/28/18 19:48 Range/Units Bedside Glucose (Misc Panel) 139 207 187 80-115 MG/DL Microbiology Microbiology 08/20/18 Blood Culture - Final, Complete NO GROWTH AFTER 5 DAYS 08/20/18 Blood Culture - Final, Complete NO GROWTH AFTER 5 DAYS 08/20/18 Gram Stain - Final, Complete 08/20/18 Body Fluid Culture - Final, Complete 08/20/18 Wound Culture - Final, Complete Klebsiella Pneumoniae Pseudomonas Aeruginosa Discharge Medications Scheduled (Ruth-Lei Rx 1 mg) 1 Tab Tab, 1 TAB PO DAILY, (Reported) (Basaglar Kwikpen) 100 Unit/Ml Inj, 34 UNIT SC QHS, (Reported) Aspirin (Aspirin) 81 Mg Tab, 81 MG PO QHS, (Reported) Atorvastatin Calcium (Atorvastatin Calcium) 20 Mg Tab, 20 MG PO QHS, (Reported) Calcitriol (Calcitriol) 0.25 Mcg Cap, 0.5 MCG PO 3XW, (Reported) MON,MON,FRI Cetirizine HCl (Cetirizine HCl) 10 Mg Tab, 10 MG PO QHS, (Reported) Cinacalcet Hydrochloride (Sensipar) 30 Mg Tab, 30 MG PO 3XW, (Reported) MON,MON,MON Clopidogrel Bisulfate (Clopidogrel) 75 Mg Tab, 75 MG PO DAILY Ergocalciferol (Vitamin D) 50,000 Unit Cap, 50,000 UNITS PO 1XWK, (Reported) WEDNESDAYS Glipizide (Glipizide Xl) 10 Mg Tab, 10 MG PO BID, (Reported) Levofloxacin Hemihydrate (Levaquin) 500 Mg Tab, 500 MG PO Q48H start on 08/30/18 Metoprolol Succinate (Toprol Xl) 50 Mg Tab, 50 MG PO DAILY, (Reported) Potassium Chloride (K-Tabs) 10 Meq Tab, 20 MEQ PO DAILY, (Reported) Sevelamer Carbonate (Renvela) 800 Mg Tab, 2,400 MG PO WM Scheduled PRN Acetaminophen (Tylenol Extra Strength) 500 Mg Tab, 1,000 MG PO TID PRN for PAIN, (Reported) Docusate Sodium (Colace) 100 Mg Cap, 100 MG PO QHS PRN for CONSTIPATION, (Reported) Mupirocin Calcium (Bactroban) 2 % Cre, 1 APLCT TOP PRN PRN for REDNESS/IRRIT ATION, (Reported) USES WHEN CHANGING DRESSING Nitroglycerin (Nitroglycerin) 0.4 Mg Sub, 0.4 MG SL NITRO PRN for CHEST PAIN, (Reported) Oxycodone/Acetaminophen (Oxycodone/Acetaminophen 5-325 mg) 1 Tab Tab, 1 TAB PO BID PRN for PAIN, (Reported) Allergies Coded Allergies: Bumetanide (Verified Allergy, Unknown, hives, 12/10/16) Codeine (Verified Allergy, Unknown, hives, 12/10/16) BOBO SINGLETON MD Aug 29, 2018 11:28
[2018-08-29] MEDS: NEPHRO-VIT TAB (NEPHROCAPS) PO SCH (11:49)
--- NOTE | 2018-08-29 17:20 | IPNPDOC ---
Text Note Date of Service The patient was seen on 08/29/18. NOTE SUBJECTIVE: Patient was examined at bedside. She had no acute complaints. Prior to that. Patient had been evaluated by vascular surgeon, Dr. Pratt, who recommended patient can be discharged with plans to follow-up with Dr. Hicks for wound care, Dr. Pratt for continued vascular care, and Dr. Truong for podiatry services. She expressed john in the fact that she would be going home. She had no questions. She was told to resume her home peritoneal dialysis regimen at home, and follow-up with her outpatient appointments. She had no questions. OBJECTIVE: VITAL SIGNS: See below PHYSICAL EXAMINATION: GENERAL: Pleasant elderly female, alert and orientated, no apparent distress, lying comfortable in bed HEAD AND NECK EXAM: Head is atraumatic, neck is moist, no JVD present CARDIOVASCULAR: No murmurs, rubs or gallops, S1 and S2 present, regular rate and rhythm RESPIRATORY: Clear to auscultate anterior and posterior bilaterally, equal air movement, no dullness to percussion, no use of sensory muscles. ABDOMEN: Right lower quadrant peritoneal dialysis catheter in place, MUSCULOSKELETAL: Left first and second toe gangrene, he'll gangrene on left foot as well. Right foot is without gangrene. However, it does appear to be dry abuse bruising or cyanosis LAB REVIEW: See below ASSESSMENT AND PLAN: 1. End-stage renal disease on peritoneal dialysis. Current volume status is optimized, patient has been advised to continue her current parat[place] dialysis regimen at home. 2. Left foot gangrene. Patient is currently on oral Levaquin. Was managed by Dr. Pratt, vascular surgeon. During hospital stay. She will follow-up with Dr. Hicks and 3. Anemia and end-stage renal disease. Continue c Aranesp. Stable H&H on discharge 4. Protein calorie malnutrition. Patient had her Nepro restarted, however she was unable to get it during her hospital stay. She will continue her naproxen home. 5. Secondary hyperparathyroidism. Continue her home Sensipar. Disposition; Patient has been discharged in stable condition. She will follow-up with vascular surgery, podiatry and wound care VS,Dawna, I+O VS, Dawna, I+O Laboratory Tests 08/29/18 05:42 Red Blood Count 3.09 L, Mean Corpuscular Volume 92.9, Mean Corpuscular Hemoglobin 29.1, Mean Corpuscular Hemoglobin Concent 31.4 L, Red Cell Distribution Width 14.6 H, Neutrophils (%) (Auto) 81.0 H, Lymphocytes (%) (Auto) 12.6 L, Monocytes (%) (Auto) 5.5 H, Eosinophils (%) (Auto) 0.0, Basophils (%) (Auto) 0.3, Neutrophils # (Auto) 12.2 H, Lymphocytes # (Auto) 1.9, Monocytes # (Auto) 0.8, Eosinophils # (Auto) 0.0, Basophils # (Auto) 0.1, Calcium Level 8.7 L Vital Signs Date Time Temp Pulse Resp B/P (MAP) Pulse Ox O2 Delivery O2 Flow Rate FiO2 08/29/18 06:00 98.3 83 18 136/72 (93) 94 Room Air 72 I&O- Last 24 Hours up to 6 AM 08/29/18 06:00 Intake Total 8750 ml Output Total 9950 ml Balance -1200 ml GME ATTESTATION GME ATTESTATION My faculty preceptor for this patient encounter was physically present during the encounter and was fully available. All aspects of the patient interview, examination, medical decision making process, and medical care plan development were reviewed and approved by the faculty preceptor. The faculty preceptor is a tucker and concurs with the plan as stated in the body of this note and will attest to such by his/her cosignature. SIMONA FOLEY DO Aug 29, 2018 17:20
--- NOTE | 2018-09-10 10:26 | REPIR ---
DATE OF PROCEDURE: 08/24/2018 ATTENDING SURGEON: Dr. Dio Pratt ASSISTANTS: Keena Ceron and Kimmy Orlando. PREOPERATIVE DIAGNOSES: Right first toe nonhealing ulcer, left heel nonhealing ulcer, left first and second toe nonhealing ulcer, end-stage renal disease. POSTOPERATIVE DIAGNOSES: Right first toe nonhealing ulcer, left heel nonhealing ulcer, left first and second toe nonhealing ulcer, end-stage renal disease. PROCEDURE: Aortogram, iliofemoral angiogram, selective left common femoral artery catheter placement with left lower extremity angiogram, selective left superficial femoral artery catheter placement with left lower extremity angiogram, selective left popliteal artery catheter placement with left lower extremity angiogram. INDICATIONS: The patient is a 63-year-old female, who has previously undergone atherectomy of her popliteal and tibial peroneal trunk and peroneal artery due to severe atherosclerotic occlusive disease. The patient has occluded posterior tibial and anterior tibial arteries which are reconstituted distally via the peroneal artery with severe small vessel disease in the left foot. The patient will now undergo an angiogram with possible angioplasty stent and/or atherectomy. Risks, benefits and alternative options were discussed with the patient. ANESTHESIA: Local with sedation 1 mg of Versed, 50 mcg of fentanyl and 10 mL of 2% lidocaine. FLUOROSCOPY TIME: 3.2 minutes. CONTRAST: 31.5 mL of Isovue-300. SEDATION TIME: From 14:11 a.m. to 14:52 a.m. for a total of 41 minutes. The sedation was administered by the registered nurse in the room. The cardiopulmonary monitoring was performed by the registered nurse in the room. The sedation administration and cardiopulmonary monitoring were performed under my direct supervision. I was present for and directed the entire case. There were no sedation related complications and the patient was returned to pre-sedation status at the completion of the procedure. COMPLICATIONS: None. DRAINS: None. SPECIMENS: None. IMPLANTS: Mynx closure device used to close the right common femoral arteriotomy. DESCRIPTION OF PROCEDURE: The patient was taken to the angiography suite, placed supine on the angiography room table and then prepped and draped in a standard surgical fashion. The right common femoral artery was cannulated. A micropuncture needle after anesthetizing overlying skin with 2% lidocaine. The micropuncture wire was advanced over the micropuncture needle, which was upsized to a micropuncture sheath. A Bentson wire was advanced to the micropuncture sheath, which was upsized to 5-Urdu sheath. An Omni flush catheter was placed in the aorta and an aortogram was performed. The catheter was pulled down level of the bifurcation iliac arteries and an iliofemoral angiogram was performed. The catheter was directed over the bifurcation of the iliac arteries, placed in the left common femoral artery and a left lower extremity angiogram was performed. The catheter was advanced into the left superficial femoral artery and a left lower extremity angiogram was performed. The catheter was further advanced into the left popliteal artery and a selective left popliteal artery angiogram was performed. This showed no intervention was required. The catheters and wires were removed and a Mynx closure device was used to close the arteriotomy in the right common femoral artery with an additional 10 minutes of adjunctive pressure applied for hemostasis. Dressings were then applied. The patient tolerated the procedure well. All instrument, sponge and needle counts were correct at the end the case. There were no complications. Dr. Pratt was present for and directed the entire case. The patient was transferred to the holding area and subsequently to the floor in stable condition.
== END 2018-08-29 14:40 | disposition home or self-care (01) | DRG 252 ==
LOC: M ED 07:45 → M ED INP 12:52 → M MSPAV 15:44
PROVIDERS: ADMIT Internal Medicine Nephrology; ATTEND Internal Medicine Nephrology
PROC: 30233N1 Transfusion of Nonautologous Red Blood Cells into Peripheral Vein, Percutaneous Approach (ICD-10-PCS; principal; 2018-08-21)
PROC: 047N3ZZ Dilation of Left Popliteal Artery, Percutaneous Approach (ICD-10-PCS; 2018-08-24)
PROC: 047L3ZZ Dilation of Left Femoral Artery, Percutaneous Approach (ICD-10-PCS; 2018-08-24)
PROC: 047J3ZZ Dilation of Left External Iliac Artery, Percutaneous Approach (ICD-10-PCS; 2018-08-24)
PROC: B41DYZZ Fluoroscopy of Aorta and Bilateral Lower Extremity Arteries using Other Contrast (ICD-10-PCS; 2018-08-24)
DX: E11.52 Type 2 diabetes mellitus with diabetic peripheral angiopathy with gangrene (principal); N18.6 End stage renal disease; I50.22 Chronic systolic (congestive) heart failure; E87.1 Hypo-osmolality and hyponatremia; E87.2 Acidosis; E46 Unspecified protein-calorie malnutrition; N25.81 Secondary hyperparathyroidism of renal origin; I13.2 Hypertensive heart and chronic kidney disease with heart failure and with stage 5 chronic kidney disease, or end stage renal disease; I70.262 Atherosclerosis of native arteries of extremities with gangrene, left leg; E11.621 Type 2 diabetes mellitus with foot ulcer; I25.5 Ischemic cardiomyopathy; D63.1 Anemia in chronic kidney disease; E11.65 Type 2 diabetes mellitus with hyperglycemia; E11.40 Type 2 diabetes mellitus with diabetic neuropathy, unspecified; I25.10 Atherosclerotic heart disease of native coronary artery without angina pectoris; Z95.1 Presence of aortocoronary bypass graft; E78.5 Hyperlipidemia, unspecified; Z86.73 Personal history of transient ischemic attack (TIA), and cerebral infarction without residual deficits; Z79.899 Other long term (current) drug therapy; Z79.82 Long term (current) use of aspirin; Z88.5 Allergy status to narcotic agent; Z88.8 Allergy status to other drugs, medicaments and biological substances; E87.6 Hypokalemia; E83.39 Other disorders of phosphorus metabolism

== ENCOUNTER 2018-08-31 01:33 | Emergency (ER) | payer MEDICARE, BC ==
[~2018-08-31] VITALS: Ht 165.1 cm; Wt 90.5 kg
[~2018-08-31 01:33] MED LIST changes: +ASPI1TAB15 PO; +CETI10TA PO; +LEVA1TAB2 PO; +OXYC1TAB23 PO
[2018-08-31] MEDS ORDERED: LIDOCAINE 2% INJ 100 MG/5 ML SYRINGE ONE (01:34)
[2018-08-31] MEDS ORDERED: SODIUM BICARBONATE 8.4% INJ 50 ML SYRINGE ONE (01:34)
[2018-08-31] MEDS ORDERED: DOPamine 400 MG/500 ML BAG IN D5W (800MCG/ML) (J1265) ONE (01:34)
[2018-08-31] MEDS ORDERED: ROCURONIUM BROMIDE 50 MG/5 ML VIAL ONE (01:34)
[2018-08-31] MEDS ORDERED: EPINEPHrine 1MG/10ML SYRINGE 1.5IN ONE (01:34)
[2018-08-31] MEDS ORDERED: ASPIRIN 81 MG CHEW TABLET PO ONE (01:45)
[2018-08-31] MEDS ORDERED: NS 1,000 ML IV ONE (01:45)
[2018-08-31] MEDS ORDERED: AMIODARONE HCL 150 MG/100 ML PREMIXED BAG (NEXTERONE) As Ordered ONE (01:53)
[2018-08-31] MEDS ORDERED: AMIODARONE HCL 150 MG in APPROPRIATE DILUENT 1 EA IV STA ×2 (01:53→04:05)
[2018-08-31 02:03] LABS: BASO # 0.1 10^3/uL (0.0-0.2); BASO % 0.4 % (0.0-1.0); EOS % 0.1 % (0.0-3.0); HEMATOCRIT 31.8 % (36.0-47.0); HEMOGLOBIN 9.6 g/dl (12.0-15.5); LYMPH # 2.6 10^3/uL (1.5-4.5); LYMPH % 15.7 % (24.0-44.0); MEAN CORPUSCULAR HEMOGLOBIN 29.4 pg (27.0-33.0); MEAN CORPUSCULAR HGB CONC 30.2 g/dl (32.0-36.5); MEAN CORPUSCULAR VOLUME 97.5 fl (80.0-96.0); MONO # 0.9 10^3/uL (0.0-0.8); MONO % 5.3 % (0.0-5.0); NEUTROPHILS # 13.1 10^3/uL (1.8-7.7); NEUTROPHILS % 77.7 % (36.0-66.0); PLATELET COUNT, AUTOMATED 230 10^3/uL (150-450); RED BLOOD COUNT 3.26 10^6/uL (4.00-5.40); WHITE BLOOD COUNT 16.9 10^3/uL (4.0-10.0)
[2018-08-31 02:12] LABS: INR 1.18; PROTHROMBIN TIME 15.2 SECONDS (12.1-14.4)
[2018-08-31 02:13] LABS: PARTIAL THROMBOPLASTIN TIME 24.5 SECONDS (25.4-37.6)
[2018-08-31 02:45] LABS: C REACTIVE PROTEIN QUANTITATIV 25.1 MG/DL (0.00-0.30); CALCIUM LEVEL 8.8 MG/DL (8.8-10.2); CREATININE FOR GFR 7.1 MG/DL (0.55-1.30); GLOMERULAR FILTRATION RATE 6.2 (>45); MAGNESIUM LEVEL 2.2 MG/DL (1.8-2.4); MB/CK RELATIVE INDEX 5.65 (< OR =4); POTASSIUM SERUM 5.1 MEQ/L (3.5-5.1); TROPONIN I 0.04 NG/ML (< 0.10)
[2018-08-31] MEDS ORDERED: DILUENT IV ONE (02:45)
[2018-08-31] MEDS ORDERED: NS IV ONE (02:45)
[2018-08-31] MEDS ORDERED: AMIODARONE HCL 360 MG in APPROPRIATE DILUENT 1 EA IV SCH (03:15)
[2018-08-31] MEDS ORDERED: NOREPINEPHRINE 4 MG/4 ML AMP As Ordered ONE ×2 (03:20→03:21)
[2018-08-31] MEDS ORDERED: ISOVUE-370 76% 100ML VIAL (Q9967) As Ordered ONE (03:29)
[2018-08-31 03:42] LABS: ABG BASE EXCESS -6.7 (-2.0-2.0); ABG HCO3 18.3 MEQ/L (22.0-26.0); ABG O2 SATURATION 98.6 % (95.0-99.0); ABG PARTIAL PRESSURE CO2 34.3 mmHg (35.0-45.0); ABG PARTIAL PRESSURE O2 124.6 mmHg (75.0-100.0); ABG STANDARD HCO3 18.9 MEQ/L (22.0-26.0); ABG TOTAL CO2 19.3 MEQ/L (23.0-31.0); ABG pH (ARTERIAL) 7.344 UNITS (7.350-7.450)
[2018-08-31] MEDS: ROCURONIUM BROMIDE 50 MG/5 ML VIAL IV SCH ×2 (03:52→04:12)
[2018-08-31] MEDS ORDERED: MIDAZOLAM INJ 5 MG/ML VIAL (J2250) As Ordered ONE (03:53)
[2018-08-31] MEDS: MIDAZOLAM HCL 50 MG in D5W 40 ML IV SCH ×2 (04:00→04:13)
[2018-08-31] MEDS ORDERED: ROCURONIUM BROMIDE 50 MG/5 ML VIAL IV SCH (04:00)
[2018-08-31] MEDS ORDERED: EPINEPHrine 1MG/10ML SYRINGE 1.5IN IV STA ×8 (04:05→05:05)
[2018-08-31] MEDS ORDERED: ETOMIDATE INJ 20MG/10ML VIAL IV STA (04:05)
[2018-08-31] MEDS ORDERED: LIDOCAINE IV SCH ×2 (04:45)
[2018-08-31] MEDS ORDERED: D5W IV SCH ×2 (04:45)
[2018-08-31] MEDS ORDERED: DILUENT IV SCH ×2 (04:45)
[2018-08-31] MEDS: NOREPINEPHRINE BITARTRATE 8 MG in D5W 492 ML IV SCH ×4 (04:56→05:14)
[2018-08-31] MEDS ORDERED: LIDOCAINE 2% INJ 100 MG/5 ML SYRINGE IV STA (05:01)
[2018-08-31] MEDS ORDERED: SODIUM BICARBONATE 8.4% INJ 50 ML SYRINGE IV STA (05:05)
[2018-08-31] MEDS ORDERED: NOREPINEPHRINE BITARTRATE 8 MG in D5W 492 ML IV SCH (05:15)
[2018-08-31 05:23] LABS: BILIRUBIN, URINE MANUAL NEGATIVE (NEGATIVE); GLUCOSE, URINE (UA) MANUAL TRACE(50 MG/DL) mg/dL (NEGATIVE); KETONE, URINE MANUAL NEGATIVE (NEGATIVE); UROBILINOGEN, URINE MANUAL NORMAL (NORMAL)
[2018-08-31 05:27] VITALS: BP 97/46
[2018-08-31] MEDS ORDERED: DOPamine HCL 400 MG in APPROPRIATE DILUENT 1 EA IV SCH (05:30)
[2018-08-31 05:33] LABS: AMORPHOUS SEDIMENT, URINE LARGE AMOUNT (NEGATIVE); BACTERIA, URINE SMALL AMOUNT; HYALINE CAST, URINE NONE SEEN /lpf (0-1); SQUAMOUS EPITHELIAL CELL URINE SMALL AMOUNT /hpf (SMALL AMT)
[2018-08-31 05:34] LABS: RBC, URINE 15-20 /hpf (0-3)
--- NOTE | 2018-08-31 06:01 | ECGEPIP ---
Stationary ECG Study [facility] - ED Test Date: 2018-08-31 Pat Name: KANE MAGANA Department: Room: - Gender: F Regulatory Affairs Specialist: eliceo : 1955 Requested By: CHELLE Gutiérrez Order Number: [id number] Reading MD: Wade Fabian Measurements Intervals [place] Rate: 102 P: 76 IN: 181 QRS: -38 QRSD: 154 T: 93 QT: 388 QTc: 508 Interpretive Statements SINUS TACHYCARDIA POSSIBLE LEFT ATRIAL ENLARGEMENT LEFT AXIS DEVIATION INTRAVENTRICULAR CONDUCTION DELAY PRIOR SEPTAL INFARCT, NEW COMPARED TO 08/20/[address] DEPRESSION MORE PROUNCED THAN ON PREVIOUS Electronically Signed On 08-31-2018 6:00:41 EST by Wade Fabian
--- NOTE | 2018-08-31 06:02 | ECGEPIP ---
Stationary ECG Study [facility] - ED Test Date: 2018-08-31 Pat Name: KANE MAGANA Department: Room: - Gender: F Scouring Machine Tender: NORMA : 1955 Requested By: CHELLE Gutiérrez Order Number: [id number] Reading MD: Wade Fabian Measurements Intervals [place] Rate: 92 P: 69 NE: 172 QRS: -19 QRSD: 154 T: 102 QT: 410 QTc: 508 Interpretive Statements SINUS RHYTHM LEFT AXIS DEVIATION INTRAVENTRICULAR CONDUCTION DELAY PRIOR SEPTAL INFARCT LATERAL ST DEPRESSION SIMILAR TO PRIOR ON SAME DATE Electronically Signed On 08-31-2018 6:02:18 EST by Wade Fabian
--- NOTE | 2018-08-31 08:04 | REP ---
Portable chest x-ray: Single view. History: Post cardiac arrest. Comparison study: August 20, 2018. Findings: The patient is status post prior median sternotomy. A unipolar pacemaker is again noted in place via the right side. EKG electrodes are seen. The lungs are symmetrically aerated and no infiltrate is seen. Cardiac silhouette is enlarged as before. Pulmonary vasculature is not increased. There is slight blunting of the right and possibly left lateral pleural angle indicating small effusions. No bony abnormalities appreciated. Impression: Cardiomegaly. Prior sternotomy with pacemaker. Slightly blunted pleural angles bilaterally. Electronically Signed by Royer Griffin MD 08/31/2018 07:55 A
--- NOTE | 2018-08-31 08:07 | REP ---
Portable chest x-ray: Single view. Timestamp 04:15 a.m. History: Post intubation. Comparison study: August 31, 2018 02:28 a.m. film. Findings: Endotracheal tube is in good position at the level of proximal clavicles. NG tube enters left upper quadrant. A unipolar pacemaker remains in the right heart. Prior sternotomy wires seen. Cardiomegaly is again observed unchanged. Pulmonary vasculature is not increased. No evidence of pulmonary edema. There is slight blunting of the left lateral pleural angle as before. Electronically Signed by Royer Griffin MD 08/31/2018 07:58 A
== END 2018-08-31 06:10 | disposition short-term general hospital (02) ==
LOC: M ED 01:33
DX: I46.9 Cardiac arrest, cause unspecified (principal); E11.9 Type 2 diabetes mellitus without complications; I25.10 Atherosclerotic heart disease of native coronary artery without angina pectoris; I70.262 Atherosclerosis of native arteries of extremities with gangrene, left leg; Z95.0 Presence of cardiac pacemaker; Z99.2 Dependence on renal dialysis; Z79.899 Other long term (current) drug therapy; Z79.82 Long term (current) use of aspirin; Z79.4 Long term (current) use of insulin; Z88.5 Allergy status to narcotic agent; Z88.8 Allergy status to other drugs, medicaments and biological substances
CPT/HCPCS: 36415; 36600; 51702; 71045; 80048; 81000; 82550; 82553; 82803; 83605; 83735; 83880; 84484; 85025; 85610; 85730; 86140; 87040; 87086; 92950; 93005; 93041; 96361; 96374; 96375; 96376; 99291; J1265; J2250